=== PATIENT | male | born 1955 | race Caucasian/White ===

== ENCOUNTER → 2019-05-07 13:46 | Outpatient (POV) | payer OTHER, SELFPAY | PROVIDERS: Visit Provider Dermatology | DX: Z00.00 Encounter for general adult medical examination without abnormal findings (principal) ==

== ENCOUNTER → 2019-10-01 10:00 | Outpatient (POV) | payer OTHER, SELFPAY | PROVIDERS: PCP Dermatology; Visit Provider Dermatology | DX: Z00.00 Encounter for general adult medical examination without abnormal findings (principal) ==

== ENCOUNTER → 2019-10-29 09:55 | Outpatient (POV) | payer OTHER, SELFPAY | PROVIDERS: Visit Provider Dermatology | DX: Z00.00 Encounter for general adult medical examination without abnormal findings (principal) ==

== ENCOUNTER → 2020-03-28 08:49 | Outpatient (CLI) | payer MEDICARE, SELFPAY ==
[2020-03-28 10:04] LABS: Chloride 105 mmol/L (98-107); Potassium 5.4 mmoL/L (3.5-5.1); Sodium 138 mmol/L (136-145)
[2020-03-28 10:07] LABS: Alanine Aminotransferase 29 U/L (12-78); Albumin Level 4.4 g/dl (3.5-5.0); Albumin/Globulin Ratio 1.6 (1.1-1.8); Alkaline Phosphatase 58 U/L (38-126); Anion Gap 9.4 mEq/L (5-15); Aspartate Amino Transferase 32 U/L (17-59); Bilirubin,Total 1.1 mg/dl (0.2-1.3); Blood Urea Nitrogen 18 mg/dl (9-20); Carbon Dioxide 29 mmol/L (22.0-30.0); Cholesterol 267 mg/dl (140-200); Estimated Glomerular Filt Rate 97 ml/min (>60); GFR (African American) 117 ML/MIN (>60); Globulin 2.7 g/dL (1.3-3.2); Total Protein,Serum 7.1 g/dl (6.3-8.2); Triglycerides 92 mg/dl (30-150); VLDL Cholesterol 18 mg/dL (0-40)
[2020-03-28 10:08] LABS: Calcium 9.6 mg/dl (8.4-10.2); Chol/HDL Ratio 4.7 (1-3.5); Glucose 156 mg/dl (74-100); HDL Cholesterol 57 mg/dl (40-60)
[2020-03-28 10:19] LABS: Direct LDL Cholesterol 211.44 mg/dL (100-129)
== END ==
PROVIDERS: PCP Internal Medicine; Visit Provider Internal Medicine
DX: E78.2 Mixed hyperlipidemia (principal)
CPT/HCPCS: 36415; 80053; 80061

== ENCOUNTER → 2020-04-03 06:36 | Outpatient (CLI) | payer MEDICARE, SELFPAY ==
--- NOTE | 2020-04-03 | CA_ITS ---
APPROVED REPORT Exam: Exercise Treadmill Technologist: Natalie Street, Ht: 6 ft 1 in Wt: 185 lbs BSA: 2.08 m2 Indications: Dizziness/pALP Medical History Medical History: HTN, Hyperlipidemia, Diabetes Medications: Vitamin D3,,,,, Ramipril,,,,, Naproxen,,,,, Acetaminophen,,,,, DulaGLUTIDE,,,,, TrULicity,,,,, Cardiac Risk Factors: HTN, Hyperlipidemia, Diabetes (non-insulin), FHX of CAD Stress Test Details Test: Hari HR Resting HR: 67 bpm Max Heart Rate (APMHR): 155 bpm Max HR Achieved: 135 bpm Target HR (85% APMHR): 131 bpm % of APMHR: 87 BP Resting BP: 136/82 mmHg Max BP: 166/89 mmHg ECG Clinical Exercise duration: 08:30 min Highest Stage Achieved: Exercise capacity: 10.1 METs Stress ECG Conclusion no CP, positive SOA at peak exercise resolving in recovery occ PVC greater than 1.5mm ST depression The EKG portion of the exercise treadmill stress test is nondiagnostic due to baseline abnormal EKG. Test Summary RECOVERY 05:24 0.0 0.0 77 . 127/ 83 . . REST . . . . . . . Sitting REST 03:34 0.0 0.0 67 . 136/ 82 . . Stage 1 01:00 10.0 1.7 83 . . . . Stage 1 02:00 10.0 1.7 87 . . . . Stage 1 03:00 10.0 1.7 86 . 115/ 80 . . Stage 2 01:00 12.0 2.5 101 . . . . Stage 2 02:00 12.0 2.5 103 . . . . Stage 2 03:00 12.0 2.5 109 . 122/ 93 . . Stage 3 01:00 14.0 3.4 121 . . . . Stage 3 . . . . . . . Cardiolite injected Stage 3 02:00 14.0 3.4 131 . . . . Stage 3 02:30 14.0 3.4 132 . . . Stop exercise at 08:30 RECOVERY 01:00 0.0 0.0 100 . . . . RECOVERY 02:00 0.0 0.0 81 . . . . RECOVERY 03:00 0.0 0.0 80 . 166/ 89 . . RECOVERY 04:00 0.0 0.0 79 . 146/ 82 . . RECOVERY 05:00 0.0 0.0 78 . 146/ 82 . . RECOVERY 05:24 0.0 0.0 77 . 127/ 83 . . Electronically signed by : Tanner Gupta, 04/03/2020 13:30:09
--- NOTE | 2020-04-03 06:38 | CA_ITS ---
APPROVED REPORT EXAM: Comprehensive 2D, Doppler, and color-flow Echocardiogram Park Ranger: Magda Gonzalez RVT Ht: 6 ft 0 in Wt: 190lbs BSA: 2.08 BP: 157/93 mmHg Indications: PALPS,HTN,HLD,DM,DIZZINESS,ABN EKG 2D Dimensions LVOT 1.71 cm (M/F) 1.5-2.5 M-Mode Dimensions RVDd 3.61 cm (0.9-2.6) LVDd 4.48 cm (3.5-5.7) LVDs 3.19 cm (3.5-5.7) IVSd 1.29 cm (0.6-1.1) PWd 1.18 cm (0.6-1.1) EF (Teich) 55.60% FS 28.80% EDV (Teich) 91.50 mL ESV (Teich) 40.60 mL LV Diastology E/A Ratio 0.61 Mitral Valve MV A Velocity 59.00 (40-130 cm/s) Left Ventricle Left atrium is mildly enlarged, left ventricle is normal size, mild concentric left ventricular hypertrophy, visually estimated ejection fraction 55% with no regional wall motion abnormality. Grade 1 diastolic dysfunction seen without tissue Doppler evidence of raise left atrial pressure. Right Ventricle Right atrium and right ventricle mildly enlarged with normal contractility. Aortic Valve Aortic valve is minimally thickened and fibrosed, there is no aortic stenosis or aortic insufficiency. Mitral Valve Mitral valve is grossly normal, there is mild mitral regurgitation. Tricuspid Valve Tricuspid valve is grossly normal, there is no tricuspid stenosis. There is mild tricuspid regurgitation, tricuspid regurgitation jet velocity is inadequate for calculation of the right ventricular systolic pressure. Pulmonic Valve Pulmonic valve is poorly visualized. Great Vessels Aortic root is normal size. Pericardium No significant pericardial effusion noted. Conclusion 1. Biatrial enlargement, normal left ventricular size, mild concentric left ventricular hypertrophy, visually estimated ejection fraction 55% with no regional wall motion abnormality, grade 1 diastolic dysfunction seen without tissue Doppler evidence of raise left atrial pressure. 2. Mildly enlarged right ventricle with normal contractility. 3. Mild mitral and tricuspid regurgitation. 4. No significant pericardial effusion noted. Electronically signed by : Tanner Gupta, 04/03/2020 11:15:14
--- NOTE | 2020-04-03 06:48 | NM_ITS ---
APPROVED REPORT Exam: Nuclear Stress Test Indication: htn, d.m., hyperlipidemia, fm hx., fatigue Patient Location: Outpatient Stress Tech: Natalie Street [place] Tech:Jesika Mercer ARRBrendon RT(R)(N) Ht: 6 ft 1 in Wt: 185 lbs HR: 63 bpm BP: 136/82 mmHg BSA: 2.08 m2 BMI: 24.4 History: htn, d.m., hyperlipidemia, fm hx., fatigue Procedure: Patient exercised on Hrai protocol 8:30 minutes and sec, resting heart rate 63 bpm, resting blood pressure 136/82 mmHg, with exercise maximum heart rate achived was 135 bpm which is Greater than 85 % of the maximum predicted heart rate and blood pressure was 122/93 mmHg. Patient has Good exercise capacity, achieved 10.1 METs of workload on treadmill, the blood pressure response to exercise was Abnormal. Electrocardiogram Resting electrocardiogram shows sinus rhythm nonspecific ST-T changes, with exercise there is additional millimeter ST segment depression noted from the baseline EKG. The EKG portion of the exercise Myoview is nondiagnostic due to baseline abnormal EKG. Cardiac Stress and Resting SPECT Images: Cardiac Stress and Resting SPECT images were obtained using technetium 99m Myoview 30.7 mCi stress and 10.24 mCi at rest. Gated SPECT for analysis of segmental wall motion and calculation of the ejection fraction also done. Cardiac stress and resting SPECT images show decrease tracer activity in the inferior and posterior basal wall which partially improves on the resting images suggestive of mixed ischemia and scar, computer derived ejection fraction is 56% with moderate inferior wall hypokinesis, right ventricle is mildly enlarged with normal contractility. Conclusion: 1. The EKG portion of the exercise Myoview is nondiagnostic due to baseline abnormal EKG, patient has good exercise capacity achieved 10.1 mets of workload on treadmill, the blood pressure response to exercise was abnormal, test was stopped due to shortness of breath. 2. Scintigraphic evidence of mixed ischemia and scar involving the inferior wall, computer derived ejection fraction 56% with moderate inferior wall hypokinesis, right ventricle is mildly enlarged with normal contractility. 3. Abnormal exercise Myoview study. Electronically signed by : Tanner Gupta, 04/03/2020 13:33:56
== END ==
PROVIDERS: PCP Internal Medicine; Visit Provider Urology
DX: R94.31 Abnormal electrocardiogram [ECG] [EKG] (principal); I10 Essential (primary) hypertension; R42 Dizziness and giddiness
CPT/HCPCS: 78452; 93017; 93306; A9502

== ENCOUNTER 2020-04-20 08:24 | Day surgery (SDC) | payer MEDICARE, SELFPAY ==
[2020-04-20] VITALS (12 sets, daily range): BP systolic 95–145; BP diastolic 56–92; PULSE 53–76; RESP 16–18; TEMP 36.7; O2SAT 93–100; BMI 25.4
--- NOTE | 2020-04-20 09:00 | IR_ITS ---
APPROVED REPORT Patient Location: Outpatient PROCEDURES Left heart catheterization Left ventriculogram Selective coronary angiogram INDICATION High risk abnormal Myoview, Angina pectoris Informed consent was obtained prior to the procedure. COMPLICATIONS NONE Estimated Blood Loss: LESS THAN 10 ML TECHNIQUE One percent lidocaine used to anesthetize the right anterior aspect of the wrist. The right radial artery was accessed via the Seldinger technique. A 6 Egyptian sheath was placed in the right radial artery. 2.5 mg of verapamil, 800 mcg of nitroglycerin, 1mg Lidocaine and 5000 U Heparin were given through the arterial sheath. The trap catheter was also used to perform left heart catheterization, left ventriculogram and selective coronary angiogram. At the end of the procedure the sheath was removed good hemostasis was achieved using Traclet band, patient was transferred to the postop holding area in stable condition. ANGIOGRAPHIC RESULTS The left main artery Has a distal greater than 60% stenosis The left anterior descending artery Has proximal 4060 and 50% stenoses. The remaining LAD is normal however the large first diagonal artery has an ostial greater than 50% stenosis The circumflex artery Is nondominant yet still a large vessel giving rise to a large high first obtuse marginal artery. The vessel has mild 10 to 20% proximal luminal irregularities The right coronary artery Is a dominant vessel and has mid vessel 30 and 40% stenoses. A large posterior descending artery has a 60 to 70% stenosis The TATE ventriculogram reveals Preserved at 60% The left ventricular end-diastolic pressure 10 mmHg IMPRESSION Severe three-vessel coronary artery disease as described above Preserved ejection fraction Normal left ventricular end-diastolic pressure PLAN 1. Patient will be referred for bypass surgery 2. Ongoing risk factor modification Electronically signed by : Kike Oshea, 04/20/2020 10:47:09
[2020-04-20 09:01] LABS: Basophils # 0.1 K/mm3 (0-0.2); Basophils % 1.1 % (0.1-2.0); Eosinophils # 0.2 K/mm3 (0.0-0.4); Eosinophils % 3.2 % (0.1-12.0); Hematocrit 48.3 % (42.0-52.0); Lymphocytes # 1.8 K/mm3 (0.7-4.5); Lymphocytes % 30.1 % (10-50); Mean Corpuscular HGB Conc 35.1 g/dL (31.8-35.4); Mean Corpuscular Hemoglobin 31.7 pg (27.0-31.2); Mean Corpuscular Volume 90.1 fl (80-94); Mean Platelet Volume 7.9 fl (7.4-10.4); Monocytes # 0.3 K/mm3 (0.1-1.0); Monocytes % 4.9 % (1.7-9.3); Neutrophils # 3.6 K/mm3 (1.8-7.8); Neutrophils % 60.6 % (37.0-80.0); Platelet Count 141 K/mm3 (142-424); Red Blood Count 5.35 M/mm3 (4.60-6.20); Red Cell Distribution Width 13.6 % (11.5-17.5); White Blood Count 5.9 K/mm3 (4.8-10.8)
[2020-04-20 09:05] LABS: Chloride 106 mmol/L (98-107); Potassium 4.2 mmoL/L (3.5-5.1); Sodium 139 mmol/L (136-145)
[2020-04-20 09:07] LABS: Blood Urea Nitrogen 20 mg/dl (9-20); Creatinine Clearance Estimated 89 mL/min (50-200); Estimated Glomerular Filt Rate 75 ml/min (>60); GFR (African American) 91 ML/MIN (>60)
[2020-04-20 09:08] LABS: Anion Gap 6.2 mEq/L (5-15); Calcium 9.1 mg/dl (8.4-10.2); Carbon Dioxide 31 mmol/L (22.0-30.0); Glucose 158 mg/dl (74-100)
== END 2020-04-20 13:50 | disposition home or self-care (01) ==
LOC: CATHLAB 08:26
PROVIDERS: PCP Internal Medicine; Visit Provider Internal Medicine
DX: E78.5 Hyperlipidemia, unspecified; I10 Essential (primary) hypertension; R94.31 Abnormal electrocardiogram [ECG] [EKG]; R94.39 Abnormal result of other cardiovascular function study; I25.118 Atherosclerotic heart disease of native coronary artery with other forms of angina pectoris; E11.9 Type 2 diabetes mellitus without complications; Z79.4 Long term (current) use of insulin; Z79.899 Other long term (current) drug therapy; Z88.8 Allergy status to other drugs, medicaments and biological substances
CPT/HCPCS: 80048; 85025; 93458; 99152; C1725; C1769; J1644; Q9967

== ENCOUNTER → 2020-07-07 15:45 | Outpatient (POV) | payer MEDICARE, SELFPAY | PROVIDERS: Visit Provider Dermatology | DX: Z00.00 Encounter for general adult medical examination without abnormal findings (principal) ==

== ENCOUNTER → 2020-07-28 06:09 | Outpatient (CLI) | payer MEDICARE, SELFPAY ==
--- NOTE | 2020-07-28 06:09 | CA_ITS ---
APPROVED REPORT Exam: Exercise Treadmill Technologist: Romana June, Ht: 6 ft 1 in Wt: 190 lbs BSA: 2.11 m2 HR: 56 bpm BP: 156/91 mmHg Indications: Angina, CAD, Dizziness Medical History Medications: Aspirin,,,,, Metoprolol,,,,, Acetaminophen,,,,, DulaGLUTIDE,,,,, Evolocumab,,,,, Stress Test Details Test: Manual Treadmill HR Resting HR: 64 bpm Max Heart Rate (APMHR): 155 bpm Max HR Achieved: 154 bpm Target HR (85% APMHR): 131 bpm % of APMHR: 99 Recovery HR: 82 bpm BP Resting BP: 156/91 mmHg Max BP: 210/100 mmHg Recovery BP: 151.0/100.0 mmHg ECG Clinical Exercise duration: 08:00 min Highest Stage Achieved: Exercise capacity: 10.1 METs Stress ECG Conclusion Resting EKG: Sinus robin, RAD Exercised 8:00 in Hari Protocol Symptoms: Some increase in pretest CP with exercise Arrhythmias/Ectopy: Occ PAC and PVC ST-T Changes: 1-1.[address] elevation in lead aVL, Exaggeration of baseline ST depression with a total of 3mm of down slopping ST depression inferiorly and 1.5mm horizontal ST depression inferiorly Conclusion: The EKG portion of the exercise Myoview is nondiagnostic due to baseline abnormal EKG. Test Summary Stage 3 01:00 14.0 3.4 145 . . . Myoview Injected REST . . . . . . . Standing REST 06:44 0.0 0.0 64 . 156/ 91 . . Stage 1 01:00 10.0 1.7 85 . . . . Stage 1 02:00 10.0 1.7 95 . . . . Stage 1 03:00 10.0 1.7 96 . 166/ 92 . . Stage 2 01:00 12.0 2.5 106 . . . . Stage 2 02:00 12.0 2.5 118 . . . . Stage 2 03:00 12.0 2.5 130 . 198/ 98 . . Stage 3 . . . . . . . Myoview Injected Stage 3 01:00 14.0 3.4 145 . . . . Stage 3 02:00 14.0 3.4 153 . . . Stop exercise at 08:00 RECOVERY . . . . . . . Protocol changed to Manual Treadmill RECOVERY 01:00 0.0 0.0 128 . 210/100 . . RECOVERY 02:00 0.0 0.0 85 . 210/100 . . RECOVERY 03:00 0.0 0.0 77 . 177/ 93 . . RECOVERY 04:00 0.0 0.0 76 . 177/ 93 . . RECOVERY 05:00 0.0 0.0 79 . 146/ 90 . . RECOVERY 06:00 0.0 0.0 83 . 146/ 90 . . RECOVERY 07:00 0.0 0.0 85 . 146/ 90 . . RECOVERY 07:43 0.0 0.0 84 . 151/100 . . Electronically signed by : Tanner Gupta, 07/28/2020 18:50:21
--- NOTE | 2020-07-28 06:09 | NM_ITS ---
APPROVED REPORT Exam: Nuclear Stress Test Indication: Chest pain, SOB, Fatigue, CAD, CABG, HTN, DM, High cholesterol, Family history Patient Location: Outpatient Stress Tech: Romana June [place] Tech:Cyndi Stoner, ARRT, RT (R)(N) Ht: 6 ft 1 in Wt: 190 lbs HR: 56 bpm BP: 156/91 mmHg BSA: 2.11 m2 BMI: 25.0 History: Chest pain, SOB, Fatigue, CAD, CABG, HTN, DM, High cholesterol, Family history Procedure: Patient exercised on Hari protocol 8:00 minutes and sec, resting heart rate 56 bpm, resting blood pressure 156/91 mmHg, with exercise maximum heart rate achived was 134 bpm which is Greater than 85 % of the maximum predicted heart rate and blood pressure was 210/100 mmHg. Test was stopped due to Fatigue. Patient has Good exercise capacity, achieved 10.1 METs of workload on treadmill, the blood pressure response to exercise was Hypertension. Electrocardiogram Resting electrocardiogram showed sinus rhythm, nonspecific ST-T changes, with exercise there is additional 1.[address] segment depression noted from the baseline EKG. The EKG portion of the exercise Myoview is nondiagnostic due to baseline abnormal EKG. Cardiac Stress and Resting SPECT Images: Cardiac Stress and Resting SPECT images were obtained using technetium 99m Myoview 32.0 mCi stress and 10.49 mCi at rest. Gated SPECT for analysis of segmental wall motion and calculation of the ejection fraction also done. Cardiac stress and resting SPECT images show uniform myocardial activity without segmental perfusion abnormality, computer derived ejection fraction is 54 % with no regional wall motion abnormality, right ventricle is normal size and contractility. Conclusion: 1. The EKG portion of the exercise Myoview is nondiagnostic due to baseline abnormal EKG, patient has good exercise capacity achieved 10.1 mets of workload on treadmill, the blood pressure response to exercise was hypertensive, there was no exercise-induced chest discomfort. 2. No scintigraphic evidence of reversible ischemia seen at this level of exercise, computer derived ejection fraction is 54 % with no regional wall motion abnormality, right ventricle is normal size and contractility. Electronically signed by : Tanner Gupta, 07/28/2020 19:06:02
--- NOTE | 2020-07-28 08:11 | HMH.ITSHM ---
Current Home Medications as stated by this patient Mariano Sellers or customer engagement representative. []METOPROLOL ROPATHA TRILICITY ASA TYLENOL ALEVE
[2020-07-28 10:54] LABS: Alanine Aminotransferase 27 U/L (12-78); Albumin Level 4.4 g/dl (3.5-5.0); Alkaline Phosphatase 78 U/L (38-126); Aspartate Amino Transferase 32 U/L (17-59); Bilirubin,Direct 0.2 mg/dl (0.0-0.4); Bilirubin,Indirect 0.7 mg/dL (0.0-0.9); Bilirubin,Total 0.9 mg/dl (0.2-1.3); Bilirubin,Unconjugated 0.7 mg/dL (0.0-1.1); Chol/HDL Ratio 3.6 (1-3.5); Cholesterol 220 mg/dl (140-200); HDL Cholesterol 61 mg/dl (40-60); Total Protein,Serum 7.5 g/dl (6.3-8.2); Triglycerides 103 mg/dl (30-150); VLDL Cholesterol 21 mg/dL (0-40)
[2020-07-28 11:04] LABS: Direct LDL Cholesterol 137.38 mg/dL (100-129)
== END ==
PROVIDERS: PCP Internal Medicine; Visit Provider Internal Medicine
DX: I10 Essential (primary) hypertension (principal); I20.8 Other forms of angina pectoris; Z95.1 Presence of aortocoronary bypass graft
CPT/HCPCS: 36415; 78452; 80061; 80076; 93017; A9502

== ENCOUNTER → 2020-08-25 09:01 | Outpatient (POV) | payer MEDICARE, SELFPAY | PROVIDERS: Visit Provider Dermatology | DX: Z00.00 Encounter for general adult medical examination without abnormal findings (principal) ==

== ENCOUNTER → 2020-10-26 13:06 | Outpatient (CLI) | payer MEDICARE, SELFPAY ==
[2020-10-26 13:30] LABS: Basophils % 0.5 % (0.1-2.0); Eosinophils # 0.2 K/mm3 (0.0-0.4); Hematocrit 52.5 % (42.0-52.0); Hemoglobin 17.7 g/dL (14.1-18.0); Lymphocytes # 1.7 K/mm3 (0.7-4.5); Lymphocytes % 22.8 % (10-50); Mean Corpuscular HGB Conc 33.7 g/dL (31.8-35.4); Mean Corpuscular Hemoglobin 31.2 pg (27.0-31.2); Mean Corpuscular Volume 92.7 fl (80-94); Mean Platelet Volume 8.2 fl (7.4-10.4); Monocytes # 0.4 K/mm3 (0.1-1.0); Monocytes % 5.7 % (1.7-9.3); Platelet Count 165 K/mm3 (142-424); Red Blood Count 5.67 M/mm3 (4.60-6.20); Red Cell Distribution Width 14.4 % (11.5-17.5); White Blood Count 7.3 K/mm3 (4.8-10.8)
[2020-10-26 14:23] LABS: Chloride 102 mmol/L (98-107); Sodium 139 mmol/L (136-145)
[2020-10-26 14:26] LABS: Blood Urea Nitrogen 17 mg/dl (9-20); Estimated Glomerular Filt Rate 84 ml/min (>60); GFR (African American) 102 ML/MIN (>60)
[2020-10-26 14:27] LABS: Calcium 10.2 mg/dl (8.4-10.2); Carbon Dioxide 29 mmol/L (22.0-30.0); Glucose 135 mg/dl (74-100)
[2020-10-26 16:17] LABS: Coronavirus 19 IgG Antibody Positive (Negative)
[2020-10-26 16:18] LABS: Coronavirus 19 IgM Antibody Positive (Negative)
[2020-10-26 22:02] LABS: Adenovirus,PCR Not Detected (NotDetected); Bordetella Pertussis Not Detected (NotDetected); Chlamydophila Pneumoniae, PCR Not Detected (NotDetected); Coronavirus 19, PCR Not Detected (NotDetected); Coronavirus 229E Not Detected (NotDetected); Coronavirus NL63 Not Detected (NotDetected); Coronavirus OC43 Not Detected (NotDetected); Coronovirus HKU1,PCR Not Detected (NotDetected); Human Metapneumovirus Not Detected (NotDetected); Influenza A, PCR Not Detected (NotDetected); Influenza AH1, 2009 Not Detected (NotDetected); Influenza AH1, PCR Not Detected (NotDetected); Influenza AH3,PCR Not Detected (NotDetected); Influenza B, PCR Not Detected (NotDetected); Mycoplasma Pneumoniae, PCR Not Detected (NotDetected); Parainfluenza 1, PCR Not Detected (NotDetected); Parainfluenza 2, PCR Not Detected (NotDetected); Parainfluenza 3, PCR Not Detected (NotDetected); Parainfluenza 4, PCR Not Detected (NotDetected); Respiratory Syncytial Virus Not Detected (NotDetected); Rhinovirus/Enterovirus Not Detected (NotDetected)
== END ==
LOC: LAB 13:07 → COVID.OUT 17:39
PROVIDERS: Nurse Practitioner Family; PCP Internal Medicine; Visit Provider Internal Medicine
DX: Z01.818 Encounter for other preprocedural examination (principal); Z86.19 Personal history of other infectious and parasitic diseases; I25.10 Atherosclerotic heart disease of native coronary artery without angina pectoris
CPT/HCPCS: 36415; 80048; 85025; 86328; 87581; 87633; 87798; U0003

== ENCOUNTER 2020-10-27 07:51 | Day surgery (SDC) | payer MEDICARE, SELFPAY ==
[2020-10-27] VITALS (10 sets, daily range): BP systolic 130–166; BP diastolic 80–95; PULSE 58–70; RESP 12–20; TEMP 36.6–36.7; O2SAT 95–98; BMI 26.6
--- NOTE | 2020-10-27 07:04 | IR_ITS ---
APPROVED REPORT Patient Location: Outpatient PROCEDURES Left heart catheterization Left ventriculogram Selective coronary angiogram Selective engagement of left internal mammary artery with angiography Selective engage in the saphenous vein graft to the circumflex artery FFR to the LAD Drug-eluting stent deployment to the mid and proximal LAD Drug-eluting stent deployment to the proximal mid distal left main artery INDICATION Coronary disease, History of coronary bypass surgery, Angina pectoris class III and IV Informed consent was obtained prior to the procedure. COMPLICATIONS NONE Estimated Blood Loss: LESS THAN 10 ML TECHNIQUE One percent lidocaine used to anesthetize the right groin. The right femoral artery was accessed via the Seldinger technique and a 5 Brazilian sheath was placed in the right femoral artery. A JL 4, JR4 catheter were used to perform left heart catheterization, left ventriculogram selective coronary angiography as well as selective engagement of the solitary vein graft and the left internal mammary artery. At the end of the procedure therapeutic heparin was administered giving a therapeutic ACT and the 5 Brazilian sheath was exchanged for a 6 Brazilian sheath. A JL4 guide catheter was placed in the left main artery and the Choice PT extra-support wire was placed distally in the LAD. A Navvus FFR catheter was then normalized in the ascending aorta and then placed distally in the LAD. Adenosine was infused and the FFR index dropped to 0.73. Following this a 3.25 x 38 mm Xience stent was deployed at 20 monica reducing the stenosis to 0%. An additional 4 mm x 28 mm Xience drug-eluting stent was then placed in the proximal LAD overlapping the first stent and extending back into the left main artery and deployed at 16 monica. DIAMANTE-3 flow was present before and after the procedure. After achieving excellent angiographic results the apparatus was removed the groin was reprepped gloves were changed sheath was removed good hemostasis was achieved using Perclose device patient was transferred to the postop holding in stable condition ANGIOGRAPHIC RESULTS The left main artery Has a distal 40% stenosis The left anterior descending artery Has a proximal 60% stenosis followed by mid vessel 50% stenosis followed by an additional mid vessel 30 to 40% stenosis The circumflex artery Is nondominant and has competitive flow within the first obtuse marginal artery from the vein graft The right coronary artery Is a dominant vessel and has ostial proximal 20% stenosis mid vessel 20 to 30% stenoses. The PDA has a proximal concentric 40% followed by a 50% stenosis immediately distal to a 2 mm branch. 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 Brilinta and aspirin 2. Cardiac rehabilitation 3. Avoidance of tobacco products 4. Risk factor modification 5. At this time I recommend treating the right coronary artery medically. Although the PDA could be stented there would be possible je
--- NOTE | 2020-10-27 08:13 | CA_ITS ---
APPROVED REPORT EXAM: Comprehensive 2D, Doppler, and color-flow Echocardiogram Coremaker Experimental: Latoya Purcell CRT Ht: 6 ft 1 in Wt: 195lbs BSA: 2.13 BP: 150/90 mmHg Indications: Chest Pain, Shortness of Breath, Diabetes, Palpitations, CABG x 2 2020 2D Dimensions LVOT 2.00 cm (M/F) 1.5-2.5 M-Mode Dimensions RVDd 4.08 cm (0.9-2.6) LA Diam 4.41 cm (1.9-4.0) LVDd 5.35 cm (3.5-5.7) Ao Diam 3.73 cm (2.0-3.7) LVDs 4.03 cm (3.5-5.7) IVSd 0.96 cm (0.6-1.1) PWd 0.59 cm (0.6-1.1) EF (Teich) 48.40% FS 24.70% EDV (Teich) 138.30 mL ESV (Teich) 71.30 mL LV Diastology E Decel Time 300.00 (160-240 msec) E/A Ratio 0.68 MED E' 5.00 (< 7 cm/sec) E'/MED E' Ratio 9.68 (>14) LAT E' 8.50 (<10 cm/sec) E/LAT E' Ratio 5.69 (>14) Aortic Valve AI PHT 547.00 ms AO Peak GR. 5.50 mmHg Mitral Valve MV A Velocity 71.00 (40-130 cm/s) E/A Ratio 0.68 MV Decel. Time 300.00 (160-240 ms) Pulmonary Valve PV Peak Velocity 71.00 (50-150 cm/s) Tricuspid Valve TR P. Velocity 219.00 cm/s RAP Estimate 10.00 mmHg RVSP 29.10 mmHg Left Ventricle Left atrium is mildly enlarged, left ventricle is normal size, mild concentric left ventricular hypertrophy, visually estimated ejection fraction 50%, with inferior basal wall moderate hypokinesis. Grade 1 diastolic dysfunction seen without tissue Doppler evidence of raise left atrial pressure. Right Ventricle Right atrium right ventricle mildly enlarged with normal contractility. Aortic Valve Aortic valve is minimally thickened and fibrosed, there is no aortic stenosis, there is trace aortic insufficiency. Mitral Valve Mitral valve is grossly normal, there is mild mitral regurgitation. Tricuspid Valve Tricuspid valve is grossly normal, there is mild tricuspid regurgitation, tricuspid regurgitation jet velocity is inadequate for calculation of the right ventricular systolic pressure. Pulmonic Valve Pulmonic valve is poorly visualized. Great Vessels Aortic root is normal size. Pericardium No significant pericardial effusion noted. Conclusion 1. Mildly enlarged left atrium, normal left ventricular size, mild concentric left ventricular hypertrophy, visually estimated ejection fraction 50% with segmental wall motion abnormality described above, grade 1 diastolic dysfunction seen without tissue Doppler evidence of raise left atrial pressure. 2. Mildly enlarged right ventricle with normal contractility. 3. Mild mitral and tricuspid regurgitation. 4. No significant pericardial effusion noted. Electronically signed by : Tanner Gupta, 10/28/2020 06:10:20
--- NOTE | 2020-10-27 13:11 | SUR.PREOP ---
See other proocedure, 2 procedures done same day.
[2020-10-27 14:08] LABS: CATHL Activated Clotting Time > 400 SEC (74-125)
--- NOTE | 2020-10-27 15:22 | HMH.LOOP ---
[facility] Loop Recorder Date: 10/27/20 Time: 15:22 Procedure Performed:: Implantation of loop recorder Indication:: Palpitations Technique:: Patient was brought to the cardiac Collating Machine Operator. After informed consent obtained, 1% lidocaine with epinephrine was used to anesthetize the site along the left anterior aspect of the chest near the sternal border. Using the preformed scalpel, an incision was made and using the supplied preloaded apparatus, the loop recorder was placed subcutaneously without difficulty. Following the deployment of the loop recorder interrogation of the device was performed to ensure appropriate voltage was being detected (0.39 mV). Once this was verified, Steri-Strips were placed over the incision and the patient was prepped to discharge home. Patient tolerated the procedure well with minimal discomfort. Impression:: Successful implantation of loop recorder Serial Number:: [id number] Plan:: Routine postop care
--- NOTE | 2020-10-27 15:31 | HMH.PHACLD ---
[place] Marlo has received discharge medication counseling on the following medications: NEW MEDICATIONS: BRILINTA, LOSARTAN CONTINUE MEDICATIONS: METOPROLOL, ASPIRIN PATIENT CAN'T TAKE STATINS DUE TO ALLERGY/ADVERSE REACTIONS. DISCUSSED MEDICATIONS WITH PATIENT AND HIS .
--- NOTE | 2020-10-27 15:54 | SUR.PHASEII ---
see other cathlab case for discharge information.
== END 2020-10-27 15:55 | disposition home or self-care (01) ==
LOC: CATHLAB 07:54
PROVIDERS: PCP Internal Medicine; Visit Provider Internal Medicine
DX: R00.0 Tachycardia, unspecified; R00.2 Palpitations; I25.118 Atherosclerotic heart disease of native coronary artery with other forms of angina pectoris
CPT/HCPCS: 85347; 93306; 99152; 99153; C1725; C1760; C1769; C1876; C1894; J0153; J1644; Q9967

== ENCOUNTER 2020-10-27 19:06 | Inpatient (IN) | payer MEDICARE, SELFPAY ==
[2020-10-27] VITALS (11 sets, daily range): BP systolic 119–192; BP diastolic 78–121; PULSE 69–102; RESP 17–24; TEMP 36.5–37.1; O2SAT 94–98; BMI 25.7; BMI 25.9
--- NOTE | 2020-10-27 19:00 | ECG_ITS ---
APPROVED REPORT Exam: Resting ECG HR:88 bpm ECG Measurements Heart Rate 88 AXES VA 136 P 41 QRSd 76 QRS 10 QT 320 T -32 QTc 387 Conclusion Normal sinus rhythm Poor r wave progression - previously noted. Old inferior changes Abnormal ECG Electronically signed by : Gildardo Grajeda, 10/28/2020 05:28:34
--- NOTE | 2020-10-27 19:09 | HMH.EDGENADL ---
ED Disposition Clinical Impression: Chest pain Qualifiers: Chest pain type: unspecified Qualified Code(s): R07.9 - Chest pain, unspecified Disposition: Admitted as Observation Condition on Discharge: Fair - Critical Care Critical Care Time: No Attestation: On , the high probability of a clinically significant, sudden or life threatening deterioration of the following system(s) required my full and direct attention, intervention and personal management. The time I documented below is in addition to time spent performing reported procedures but includes the following listed in this critical care notation. Medical Decision Making - Medical Records Medical records reviewed: Yes: I reviewed the patient's medical records. - Eugenio Inquiry Pt receiving controlled substance: Yes Eugenio was queried for this patient: No Reason not queried -: Emergent pt cond-no time Risks and benefits of using a controlled substance: were not discussed with pt by me Vital Signs: 10/27/20 19:06 10/27/20 19:11 10/27/20 19:30 Temperature 98.8 F Temperature Source Oral Pulse Rate [Right] 87 81 83 Respiratory Rate 22 24 24 Blood Pressure [Right Arm] 192/121 H 166/106 H 166/103 H Blood Pressure Mean [Right Arm] 144 126 124 Blood Pressure Source [Right Arm] Automatic Cuff Blood Pressure Position [Right Arm] Supine Sitting Sitting 02 Sat by Pulse Oximetry 97 98 97 Oxygen Delivery Method Room Air Room Air 10/27/20 19:36 10/27/20 19:54 Temperature Temperature Source Pulse Rate [Right] 102 H 74 Respiratory Rate 20 18 Blood Pressure [Right Arm] 155/105 H 127/88 Blood Pressure Mean [Right Arm] 121 101 Blood Pressure Source [Right Arm] Automatic Cuff Automatic Cuff Blood Pressure Position [Right Arm] Sitting Sitting 02 Sat by Pulse Oximetry 97 94 L Oxygen Delivery Method Room Air - Lab Data Lab results reviewed: Yes: I reviewed the patient's lab results. Lab Results 10/27/20 19:15: WBC 10.1 D, RBC 5.48, Hgb 17.4, Hct 51.1, MCV 93.3, MCH 31.8 H, MCHC 34.1, RDW 14.6, Plt Count 155, MPV 8.0, Neut % (Auto) 66.3, Lymph % (Auto) 24.5, [place] % (Auto) 6.8, Eos % (Auto) 1.6, Baso % (Auto) 0.8, Neut # (Auto) 6.7, Lymph # (Auto) 2.5, [place] # (Auto) 0.7, Eos # (Auto) 0.2, Baso # (Auto) 0.1 10/27/20 19:15: Sodium 139, Potassium 4.0, Chloride 105, Carbon Dioxide 26, Anion Gap 12.0, BUN 15, Creatinine 1.00, Estimated Creat Clear 91, Estimated GFR 75, Est GFR ( Amer) 90, Glucose 171 H, Calcium 9.4, Troponin I < 0.01 Result diagrams: 10/27/20 19:15 10/27/20 19:15 Orders (Tests/Meds): ED MEDICATIONS Discontinued Medications Generic Name Dose Route Start Last Admin Trade Name Kevin PRN Reason Stop Dose Admin Aspirin 234 mg 10/27/20 19:13 10/27/20 19:25 Aspirin 81mg Chewable Tablet PO 10/27/20 19:14 234 mg ONCE ONE Administration Ketorolac Tromethamine 15 mg 10/27/20 19:27 10/27/20 19:30 Ketorolac 30mg/Ml Vial IV 10/27/20 19:28 15 mg ONCE ONE Administration Morphine Sulfate 4 mg 10/27/20 19:22 10/27/20 19:25 Morphine 4mg/Ml Syringe IV 10/27/20 19:23 4 mg ONCE ONE Administration Nitroglycerin 0.4 mg 10/27/20 19:26 10/27/20 19:27 Nitroglycerin 0.4mg Sl Tablet SL 10/27/20 19:27 0.4 mg ONCE ONE Administration Ondansetron HCl 4 mg 10/27/20 19:22 10/27/20 19:27 Ondansetron 4mg/2ml Vial IV 10/27/20 19:23 4 mg ONCE ONE Administration ORDERS Category Date Time Status XR chest portable Stat Exams 10/27/20 19:23 Taken Troponin I Q3H Lab 10/27/20 22:15 Ordered Troponin I Q3H Lab 10/28/20 01:15 Ordered - ECG Data Tracing #1 EKG interpreted by Maurice Acosta MD: Rhythm: sinus Rate: 88 [place]: normal Ectopy: none Conduction: normal ST Segment Changes: Inferior and anterior lateral depression, questionable trace ST elevation in aVL only. T Wave Changes: none Q Waves: none Compared to prior EKG in July the nonspecific ST changes are slightly more
--- NOTE | 2020-10-27 19:23 | XR_ITS ---
PROCEDURE: XR CHEST PORTABLE CLINICAL HISTORY: cp Chest pain COMPARISON: CR CXR CHEST(2 VIEWS-NOT PORTABLE) from 02/06/2013 FINDINGS: There are prior CABG. Normal heart size There are low lung volumes. There is increased density in the right lower lobe which may be related to low lung volumes and elevated right hemidiaphragm. The remaining lungs are clear. No acute bony abnormalities. IMPRESSION: Patchy density right lower lobe which may be related to the poor inspiration and elevated hemidiaphragm with soft tissue attenuation. Upright PA and lateral chest may provide further evaluation and to exclude right basilar infiltrate which is included in the differential diagnosis. Dictated by: Anatoly Moody MD 10/28/2020 05:22 Anatoly Moody MD in [place] 10/28/2020 05:22
[2020-10-27 19:29] LABS: Basophils # 0.1 K/mm3 (0-0.2); Basophils % 0.8 % (0.1-2.0); Eosinophils # 0.2 K/mm3 (0.0-0.4); Eosinophils % 1.6 % (0.1-12.0); Hematocrit 51.1 % (42.0-52.0); Hemoglobin 17.4 g/dL (14.1-18.0); Lymphocytes # 2.5 K/mm3 (0.7-4.5); Lymphocytes % 24.5 % (10-50); Mean Corpuscular HGB Conc 34.1 g/dL (31.8-35.4); Mean Corpuscular Hemoglobin 31.8 pg (27.0-31.2); Mean Corpuscular Volume 93.3 fl (80-94); Monocytes # 0.7 K/mm3 (0.1-1.0); Monocytes % 6.8 % (1.7-9.3); Neutrophils # 6.7 K/mm3 (1.8-7.8); Neutrophils % 66.3 % (37.0-80.0); Platelet Count 155 K/mm3 (142-424); Red Blood Count 5.48 M/mm3 (4.60-6.20); Red Cell Distribution Width 14.6 % (11.5-17.5); White Blood Count 10.1 K/mm3 (4.8-10.8)
--- NOTE | 2020-10-27 19:29 | PC.NURSE ---
speaking with dr hillman @ this time
[2020-10-27 19:31] LABS: Chloride 105 mmol/L (98-107); Sodium 139 mmol/L (136-145)
[2020-10-27 19:34] LABS: Blood Urea Nitrogen 15 mg/dl (9-20); Carbon Dioxide 26 mmol/L (22.0-30.0); Creatinine Clearance Estimated 91 mL/min (50-200); Estimated Glomerular Filt Rate 75 ml/min (>60); GFR (African American) 90 ML/MIN (>60)
[2020-10-27 19:35] LABS: Calcium 9.4 mg/dl (8.4-10.2); Glucose 171 mg/dl (74-100)
--- NOTE | 2020-10-27 19:45 | ECG_ITS ---
APPROVED REPORT Exam: Resting ECG HR:71 bpm ECG Measurements Heart Rate 71 AXES WA 146 P 40 QRSd 84 QRS 9 QT 336 T 104 QTc 365 Conclusion Normal sinus rhythm ST & T wave abnormality, consider anterolateral ischemia Abnormal ECG Electronically signed by : Gildardo Grajeda, 10/28/2020 05:27:08
--- NOTE | 2020-10-27 19:48 | PC.NURSE ---
speaking with Dr. Oshea
[2020-10-27 19:52] LABS: Troponin I < 0.01 ng/ml (0.00-0.034)
--- NOTE | 2020-10-27 21:38 | PC.NURSE ---
patient up to floor via wheelchair.
[2020-10-27 22:49] LABS: Troponin I 1.44 ng/ml (0.00-0.034)
[2020-10-28] VITALS (22 sets, daily range): BP systolic 99–142; BP diastolic 53–85; PULSE 59–80; RESP 14–19; TEMP 36.5–37; O2SAT 94–99; BMI 26.0; BMI 25.9
--- NOTE | 2020-10-28 | IR_ITS ---
APPROVED REPORT Patient Location: Inpatient Activity Assistant: KENY Ochoa RT (R) PROCEDURES Selective coronary angiogram Selective engagement of the saphenous vein graft to the circumflex artery INDICATION Recent drug-eluting stent deployment to the left main artery and LAD, Abnormally elevated troponin level Informed consent was obtained prior to the procedure. COMPLICATIONS NONE Estimated Blood Loss: LESS THAN 10 ML TECHNIQUE One percent lidocaine used to anesthetize the right anterior aspect of the wrist. The right radial artery was accessed via the Seldinger technique. A 6 [place] sheath was placed in the right radial artery. 2.5 mg of verapamil, 800 mcg of nitroglycerin, 1mg Lidocaine and 5000 U Heparin were given through the arterial sheath. The trap catheter and AR 2 catheter were used to perform selective coronary angiography as well as saphenous vein graft angiography. At the end of the procedure the sheath was removed good hemostasis was achieved using Traclet band, patient was transferred to the postop holding area in stable condition. ANGIOGRAPHIC RESULTS The left main artery Has a stent in the proximal mid distal segment which extends through the LAD into the mid segment The left anterior descending artery Has a stent originating off the left main artery. The stent is widely patent with excellent proximal distal transitioning. A mid 30% stenosis is identified 15 mm distal to the stent. The first diagonal artery is jailed and has an ostial 70% stenosis. This is a 2.25 mm vessel however DIAMANTE-3 flow was present down the first diagonal artery. The second diagonal artery is 2 mm in diameter and has a 40% ostial jailing. The circumflex artery Is patent with competitive flow identified from a vein graft. The ostium of the circumflex artery is jailed yet still open. Competitive flow is identified The right coronary artery Is a dominant vessel and unchanged from yesterday's cardiac catheterization. Mild stenoses are present in the proximal mid segment. The posterior descending artery has a persistent 50 to 60% stenosis as described The TATE ventriculogram reveals Not performed The left ventricular end-diastolic pressure Not measured The saphenous vein graft to the first obtuse marginal artery is widely patent. The first obtuse marginal artery then antegrade competitively fills the nondominant circumflex artery The left internal mammary artery was not cannulated due to its known occlusion from yesterday's cardiac catheterization IMPRESSION Widely patent coronary arteries as described above Jailed first and second moderate-sized diagonal arteries as described above Patent saphenous vein graft supplying the first obtuse marginal artery and competitively backfilling the [place] circumflex artery PLAN 1. Continue dual antiplatelet therapy 2. Medical management 3. At this time I am not in favor of instrumenting or stenting either first or second diagonal artery. Typically these vessels have a high patency rate despite a higher percent stenosis as described above. Unless patient experiences recalcitrant angina pectoris these vessels should be managed medically 4. LDL less than 55 5. Discharge patient home with as needed nitroglycerin for possible stent arteritis/spasm Electronically signed by : Kike Oshea, 10/28/2020 14:41:48
--- NOTE | 2020-10-28 04:34 | PC.NURSE ---
A&OX4. PT HAS TOLERATED RA WELL THROUGHOUT SHIFT. RESPIRATIONS REGULAR AND UNLABORED. LUNG SOUNDS BILATERALLY CLEAR. HAND AUTOMATIC TRANSMISSION MECHANIC EQUAL. +2 PULSES NOTED THROUGHOUT. ACTIVE BOWEL SOUNDS HEARD IN ALL 4 QUADRANTS. SOFT AND NONTENDER ABDOMEN. NO BM REPORTED. PT VOIDS PER BATHROOM INDEPENDENTLY. NO EDEMA NOTED. SKIN CDI. NO REPORTS OF CHEST PAIN THUS FAR. NITRO PASTE NOTED TO R UPPER CHEST. PT HAS REMAINED ON TELE THROUGHOUT SHIFT. PT IS CURRENTLY LYING IN BED SLEEPING. BED IN LOWEST POSITION. CALL LIGHT WITHIN REACH. VSS. WILL CONTINUE TO MONITOR.
[2020-10-28 05:40] LABS: POC Glucose,Bedside 236 (70-110)
[2020-10-28 05:40] LABS: POC Glucose,Bedside 150 (70-110)
--- NOTE | 2020-10-28 06:10 | PC.NURSE ---
PT RECEIVED TYLENOL FOR A HEADACHE. NEW NITRO PASTE PLACED ON L CHEST.
--- NOTE | 2020-10-28 06:32 | PC.NURSE ---
IS SUPPOSED TO BRING HOME MEDS IN TODAY.
--- NOTE | 2020-10-28 08:49 | HMH.HP ---
*Admission Date: 10/27/20 <Lore Jaimes - 10/28/20 09:03> *Chief complaint: Chest pain <Lore Jaimes - 10/28/20 09:03> *History of present illness: Mr. Sellers is a 65-year-old male with a history of diabetes on Tradjenta and cardiac disease who presented to [facility] last p.m. with severe anterior chest pain. He states it felt like an anvil was thrown against his chest. He said it started in the p.m. and progressively worsened. He states he was diaphoretic but denied nausea, vomiting, and shortness of breath with this. He states the chest pain was relieved after receiving a nitroglycerin in the emergency room. This a.m. the chest is sore and tender when palpated over the left anterior areas. The following is a note from the ER: Comment/Response: Dr. Oshea called in before the patient arrival. States that he put stents in the patient's LAD and left main artery today and inserted a loop recorder. He is coming back in for chest pain. Dr. Oshea says the result of his stents was perfect and he would be shocked if this pain was cardiac ischemic in nature. The patient did have a reaction to his local lidocaine during the procedure and pain from his loop recorder insertion and pain may be related to that. 19:[address] Oshea as soon as it was obtained. I also spoke to Dr. Oshea after he viewed the EKG. He states that if the patient had a stent occlusion he would be having a large anterior IA, therefore he still feels his pain is not likely ischemic. I will call him back after the patient is examined. 19:[address] Oshea after I spoke with and examined the patient. He request the patient be treated with morphine, Toradol. My feeling is the patient will need to be admitted overnight for observation and he concurs. Additional Consult: Leia Time: 20:02 Reason -: Admission Comment/Response: Agrees to admit the patient to the hospital. We discussed the patient's clinical information, including history, exam, laboratory and radiology results and ED course. Per hospital procedure, I will write temporary bridge inpatient orders on the patient. Specific orders requested by the admitting physician: Cardiac monitoring, pain control, serial enzymes General Adult HPI - General Stated complaint: chest pain Time Seen by Provider: 10/27/20 19:09 - History of Present Illness HPI narrative: 20 to 30 minutes ago he developed severe chest pain in his sternal area which he describes as somebody dropped an anvil on my chest . Associated with shortness of breath but no diaphoresis, nausea, or radiation. He has increased pain with breathing. He also began shaking uncontrollably when this started. He had cardiac stents and a loop recorder placed today by Dr. Oshea. He had had a reaction to local lidocaine when he had his loop recorder put in today. He also has had pain at the incision site of the loop recorder both during and after the procedure. However, the pain he is now describing is different and is lower in his chest than where his loop recorder is. He said he had pain similar to this about a month ago. He had gone up a ladder and developed the same type of chest pain but also had racing heart and felt his heartbeat in his neck. His chest pain increased with each beat of his heart. He says that he slept for a couple of days after that. He did not seek care at that time. He says that he had a bypass surgery, 2 vessels, the [facility] 6 months ago. The above is from the emergency room documentation. This a.m. the patient feels better. He was able to sleep during the night. He continually denies the severe chest discomfort and is breathing without difficulty. He states his anterior chest is just sore. CBC on admission showed a white blood cell count of 10,100 with a hemoglobin of 17.4 and hematocrit of 51.1. Blood chemistries show normal electrolytes and kidney function. Troponin I on a
--- NOTE | 2020-10-28 09:36 | P.CONPHA_ITS ---
[facility] Pharmacy VTE Monitoring - Patient Demographics Admission date: 10/27/20 Report Date: 10/28/20 Time: 09:36 Allergies/Adverse Reactions: Patient Allergies lisinopril Allergy (Severe, Verified 10/27/20 19:36) cough adhesive tape [ADHESIVE TAPE] Allergy (Unknown, Verified 10/27/20 19:36) metformin [METFORMIN] Allergy (Unknown, Verified 10/27/20 19:36) rosuvastatin [From Crestor] Adverse Reaction (Severe, Verified 10/27/20 19:36) atorvastatin Adverse Reaction (Intermediate, Verified 10/27/20 19:36) Height: 1.85 m Weight: 89.159 kg Patient Problems: Current Active Problems Elevated troponin I level (Acute) S/P coronary artery stent placement (Acute) CAD (coronary artery disease) (Chronic) Chest pain (Acute) Diabetes mellitus (Chronic) - VTE Risk Labs: VTE Related Lab Results Hgb 17.4 g/dL (14.1-18.0) 10/27/20 19:15 Hct 51.1 % (42.0-52.0) 10/27/20 19:15 Plt Count 155 K/mm3 (142-424) 10/27/20 19:15 BUN 15 mg/dl (9-20) 10/27/20 19:15 Creatinine 1.00 mg/dl (0.66-1.25) 10/27/20 19:15 Estimated Creat Clear 91 mL/min (50-200) 10/27/20 19:15 Was VTE Risk Assessment Performed: Yes VTE Score: 2 VTE Risk Level: Very Low Risk Clinical Trial Participant: No - Prophylaxis VTE Prophylaxis Ordered?: Yes Types of VTE Prophylaxis: TEDS Knee High Location of Applied Device: Bilateral Lower Extremeties
--- NOTE | 2020-10-28 10:00 | PC.NURSE ---
Pt. reports head ache remains, tylenol given, zofran given for nausea, Nitro patch removed. Pt. denies needs, at this time.
--- NOTE | 2020-10-28 10:23 | HMH.CNCARD ---
History of Present Illness Consult date: 10/28/20 Consult reason: chest pain Chief complaint: chest pain Additional Medical History:: 1. Angina Pectoris (10/28/2020) a. Elevated troponins 2. S/P stenting to mid distal left main and persistent moderate stenosis large posterior descending artery. a. Cath (10/27/2020 3. Coronary artery disease. 4. Essential hypertension. 5. Diabetes. 6. Hyperlipidemia. a. Statin therapy. 7. History of CABG. History of present illness: 65-year-old male presented to the emergency room throughout the evening complaining of midsternal chest pain. Patient had underwent left heart catheterization earlier that day. Postop stenting of the proximal mid distal left main artery extending into the proximal and mid LAD and persistent moderate stenosis in the large posterior descending artery. Patient stated later yesterday evening when he started breaking out into a sweat and felt tremors. Patient stated he was shaking and tremoring to where he could not stop. Patient felt he could have had a reaction to the medication. Patient stated the chest pain was becoming a heavier feeling on his chest accompanied with shortness of breath. Patient stated he felt nauseated. No vomiting noted. Patient stated that the chest pain would not ease up. Patient stated upon arrival to the emergency room he was given nitro glycerin patch, this seemed to relieve his pain. Patient stated he felt as though he may have had a panic attack also due to the tremendous shaking he was doing. Patient was also given morphine in the ED which seemed to help relieve his shaking and the chest pain. Patient was concerned after receiving the morphine because his heart rate dropped into the 40s. Patient denied feeling dizzy. No swelling noted of the lower extremity. Patient denies chest pain at this time nitro patch is noted on right chest wall. Right groin healing well after catheterization yesterday. Patient denies any bleeding or swelling from that site. Patient underwent loop recorder placement yesterday also. Patient did receive epinephrine during the loop recorder placement. Patient possibly could have had a systemic reaction to the epinephrine causing spasm of the artery. Loop recorder was placed due to 2 episodes of high heart rate. Patient stated heart rate reached 200 bpm during the 2 episodes. Initial ED work-up performed. Initial EKG revealed normal sinus rhythm with ST and T wave abnormality with heart rate of 73 bpm. Troponin x3 elevated. Creatinine and BUN within normal limits. CXR: Patchy density right lower lobe which may be related to the poor inspiration and elevated hemidiaphragm with soft tissue attenuation. Upright PA and lateral chest may provide further evaluation and to exclude right basilar infiltrate which is included in the differential diagnosis. LHC: IMPRESSION Interval loss of left internal mammary artery to the LAD Ischemic response to adenosine with an FFR index of 0.73 involving the left main LAD system Successful stenting of the proximal mid distal left main artery extending into the proximal and mid LAD in a contiguous manner Patent saphenous vein graft to the obtuse marginal artery supply the circumflex artery Normal ejection fraction Normal left ventricular end-diastolic pressure Persistent moderate stenosis in a large posterior descending artery as described above PLAN 1. Brilinta and aspirin 2. Cardiac rehabilitation 3. Avoidance of tobacco products 4. Risk factor modification 5. At this time I recommend treating the right coronary artery medically. Although the PDA could be stented there would be possible jeopardy of a moderate sized posterior lateral branch as well as jailing of a 2 mm branch off the posterior descending artery Echo: Conclusion 1. Mildly enlarged left atrium, normal left ventricular size, mild concentric left ventricular hypertrophy, visually
--- NOTE | 2020-10-28 11:06 | CA_ITS ---
APPROVED REPORT EXAM: Comprehensive 2D, Doppler, and color-flow Echocardiogram Fur Dry Cleaner Hand: Tina Ty RDCS Ht: 6 ft 0 in Wt: 196lbs BSA: 2.11 BP: 140/60 mmHg Indications: ELEVATED TROP.CP,CAD Conclusion 1. Limited echocardiogram was obtained to assess left ventricular systolic function. 2. Left ventricle is normal size with preserved left ventricular systolic function, visually estimated ejection fraction 50% with no obvious regional wall motion abnormality, although endocardial surfaces are somewhat poorly visualized. 3. No significant pericardial effusion noted. Electronically signed by : Tanner Gupta, 10/29/2020 15:38:37
[2020-10-28 12:05] LABS: POC Glucose,Bedside 149 (70-110)
--- NOTE | 2020-10-28 13:35 | PC.NURSE ---
Pt. to denture laboratory technician via Wheel chair
--- NOTE | 2020-10-28 14:45 | PC.NURSE ---
Pt. returned from slab inspector, via stretcher, report received from slab stripper nurse.
--- NOTE | 2020-10-28 14:55 | SUR.PHASEII ---
REPORT GIVEN TO Werner RAZO RN. ALL INSTRUCTIONS GIVEN TO NURSE REGARDING RADIAL BAND, HOW TO MANAGE IT, ECT. VISUAL AND VERBAL INSTRUCTIONS GIVEN. NURSE VOICED UNDERSTANDING OF ALL INSTRUCTIONS GIVEN AND INSTRUCTED TO CALL OD GRINDER OPERATOR NURSE OR OTHER TRAINED 2ND FLOOR NURSES IF ANY QUESTIONS ARISE.
--- NOTE | 2020-10-28 15:15 | PC.NURSE ---
Routine reassessment completed. Lungs CTA, Heart at RR. BS present x4. Pressure device remains in place on right wrist no bleeding noted. Pt. denies chest pain. Pt. denies needs, will continue to monitor.
--- NOTE | 2020-10-28 16:10 | PC.NURSE ---
2 ml air removed from pressure device on right wrist.
--- NOTE | 2020-10-28 16:25 | PC.NURSE ---
2ml air removed from pressure device on right wrist. no bleeding noted.
[2020-10-28 16:38] LABS: POC Glucose,Bedside 111 (70-110)
--- NOTE | 2020-10-28 16:40 | PC.NURSE ---
2ml air removed from pressure device on Right wrist. no bleeding noted.
--- NOTE | 2020-10-28 17:10 | PC.NURSE ---
2ML air removed from pressure devices on right wrist scant amount of bleeding noted, 2ml air reinsterted.
--- NOTE | 2020-10-28 17:25 | PC.NURSE ---
2 ML air removed from pressure device on right wrist, no new bleeding noted.
--- NOTE | 2020-10-28 17:40 | PC.NURSE ---
2ML air removed from pressure device on right wrist no new bleeding noted.
--- NOTE | 2020-10-28 17:55 | PC.NURSE ---
2ml air removed from pressure device on right wrist. no new bleeding noted.
--- NOTE | 2020-10-28 18:10 | PC.NURSE ---
Addendum entered by Cyndi Schneider RN 10/28/20 19:01: Pressure device removed, site cleansed with chloraprep, 2x2 with te[address]erm in [address]. Pt. tolerated well. Original Note: 2 ml air removed from pressure device on right wrist. No new bleeding noted.
--- NOTE | 2020-10-28 19:30 | PC.NURSE ---
Report given to Maricel Rust RN.
[2020-10-28 21:44] LABS: POC Glucose,Bedside 151 (70-110)
[2020-10-29] VITALS: BP 115/57; PULSE 66; PULSE 70; RESP 16; TEMP 37; O2SAT 96
[2020-10-29 04:00] VITALS: BP 103/64; PULSE 65; PULSE 69; RESP 18; TEMP 36.8; O2SAT 94
--- NOTE | 2020-10-29 04:27 | PC.NURSE ---
Pt is alert and oriented x4. Pt rested well with eyes closed this shift. No acute changes noted from previous shift. No c/o CP or CARIAS thus far this shift. Tolerated RA well with no c/o SOA. RR noted even and unlabored. Bilateral lungs noted clear t/o upon auscultation. Dsg to right radial site noted c/d/i. Pt states area is tender to touch, no s/s of hematoma noted by this RN. Dsg to chest noted c/d/i. Denies N/V/D. Ambulates independently in room, tolerates well. No edema noted. Pt refused to use urinal or collection device in toilet to measure urine this shift. Refused teds. VSS. Refused Insulin PRN per SSI. Remains safe. Call light within reach. Will continue to monitor.
[2020-10-29 05:38] VITALS: BMI 27.0
[2020-10-29 06:00] LABS: POC Glucose,Bedside 135 (70-110)
[2020-10-29 08:00] VITALS: BP 132/87; PULSE 79; PULSE 80; RESP 16; TEMP 36.8; O2SAT 97
--- NOTE | 2020-10-29 08:42 | HMH.ACPN2 ---
<Racquel Taylor - Last Filed: 10/29/20 08:42> Internal Medicine - PN: Subj *Date: 10/29/20 *Time: 08:42 Interval history: Patient states he is feeling much better today. He states this is the first day he has not had chest pain in months. He denies any shortness of breath and has been up moving around his room. He ate breakfast this morning. He is anxious to go home. Exam Vital signs and Labs for Last 24 Hours: Temp Pulse Resp BP Pulse Ox 98.3 F 69 18 103/64 L 94 L 10/29/20 04:00 10/29/20 04:00 10/29/20 04:00 10/29/20 04:00 10/29/20 04:00 Laboratory Results - last 24 hr 10/28/20 11:56: POC Glucose 149 H 10/28/20 16:07: POC Glucose 111 H 10/28/20 20:45: POC Glucose 151 H 10/29/20 05:51: POC Glucose 135 H I & O for Last 24 hours: Intake & Output 10/26/20 10/27/20 10/28/20 10/29/20 11:59 11:59 11:59 11:59 Intake Total 1220 / 1220 130 / 130 Balance 1220 / 1220 130 / 130 Weight 196 lb 8.991 oz 204 lb 2 oz - Constitutional no acute distress - *Routine Respiratory Exam Present: CTA bilaterally - *Routine Cardiovascular Exam Present: RRR - *Routine Abdominal Exam Present: soft, normoactive bowel sounds. Absent: tenderness - *Routine Extremities Exam Absent: cyanosis, clubbing, edema - *Routine Skin Exam Present: warm. Absent: rash - *Routine Neurological Exam Present: alert, oriented X3 Assessment and Plan (1) Elevated troponin I level Status: Acute Category: Medical Code(s): R77.8 - Other specified abnormalities of plasma proteins (2) Chest pain Status: Acute Qualifiers: Chest pain type: unspecified Qualified Code(s): R07.9 - Chest pain, unspecified Category: Medical Code(s): R07.9 - Chest pain, unspecified (3) CAD (coronary artery disease) Status: Chronic Qualifiers: Coronary Disease-Associated Artery/Lesion type: [place] artery [place] vs. transplanted heart: [place] heart Associated angina: with other forms of angina Qualified Code(s): I25.118 - Atherosclerotic heart disease of [place] coronary artery with other forms of angina pectoris Category: Medical Code(s): I25.10 - Atherosclerotic heart disease of [place] coronary artery without angina pectoris (4) Diabetes mellitus Status: Chronic Qualifiers: Diabetes mellitus type: type 2 Diabetes mellitus manager relationship insulin use: without manager relationship use Diabetes mellitus complication status: without complication Qualified Code(s): E11.9 - Type 2 diabetes mellitus without complications Category: Medical Code(s): E11.9 - Type 2 diabetes mellitus without complications (5) S/P coronary artery stent placement Status: Acute Category: Surgical Code(s): Z95.5 - Presence of coronary angioplasty implant and graft - Assessment and plan all Dx Assessment and Plan for all problems:: Patient likely to be discharged today but will need to be seen by cardiology first. <Regino Dupree - Last Filed: 10/29/20 09:44> Internal Medicine - PN: Subj *Date: 10/29/20 *Time: 09:43 Exam Vital signs and Labs for Last 24 Hours: Temp Pulse Resp BP Pulse Ox 98.3 F 69 18 103/64 L 94 L 10/29/20 04:00 10/29/20 04:00 10/29/20 04:00 10/29/20 04:00 10/29/20 04:00 Laboratory Results - last 24 hr 10/28/20 11:56: POC Glucose 149 H 10/28/20 16:07: POC Glucose 111 H 10/28/20 20:45: POC Glucose 151 H 10/29/20 05:51: POC Glucose 135 H I & O for Last 24 hours: Intake & Output 10/26/20 10/27/20 10/28/20 10/29/20 11:59 11:59 11:59 11:59 Intake Total 1220 / 1220 130 / 130 Balance 1220 / 1220 130 / 130 Weight 196 lb 8.991 oz 204 lb 2 oz Assessment and Plan (1) Elevated troponin I level Status: Acute Category: Medical Code(s): R77.8 - Other specified abnormalities of plasma proteins (2) Chest pain Status: Acute Qualifiers: Chest pain type: unspecified Qualified Code(s): R07.9 - Chest pain, unspecified Category: Medic
--- NOTE | 2020-10-29 10:45 | HMH.DCSUM ---
General - General Admission date:: 10/27/20 <Regino Dupree - 11/22/20 21:45> 10/27/20 <ClaudiaRacquel - 10/29/20 10:53> Discharge date: 10/29/20 <ClaudiaRacquel - 10/29/20 10:53> HPI HPI: Mr. Sellers is a 65-year-old male with a history of diabetes on Tradjenta and cardiac disease who presented to [facility] last p.m. with severe anterior chest pain. He states it felt like an anvil was thrown against his chest. He said it started in the p.m. and progressively worsened. He states he was diaphoretic but denied nausea, vomiting, and shortness of breath with this. He states the chest pain was relieved after receiving a nitroglycerin in the emergency room. This a.m. the chest is sore and tender when palpated over the left anterior areas. The following is a note from the ER: 20 to 30 minutes ago he developed severe chest pain in his sternal area which he describes as somebody dropped an anvil on my chest . Associated with shortness of breath but no diaphoresis, nausea, or radiation. He has increased pain with breathing. He also began shaking uncontrollably when this started. He had cardiac stents and a loop recorder placed today by Dr. Oshea. He had had a reaction to local lidocaine when he had his loop recorder put in today. He also has had pain at the incision site of the loop recorder both during and after the procedure. However, the pain he is now describing is different and is lower in his chest than where his loop recorder is. He said he had pain similar to this about a month ago. He had gone up a ladder and developed the same type of chest pain but also had racing heart and felt his heartbeat in his neck. His chest pain increased with each beat of his heart. He says that he slept for a couple of days after that. He did not seek care at that time. He says that he had a bypass surgery, 2 vessels, the [facility] [address] Oshea called in before the patient arrival. States that he put stents in the patient's LAD and left main artery today and inserted a loop recorder. He is coming back in for chest pain. Dr. Oshea says the result of his stents was perfect and he would be shocked if this pain was cardiac ischemic in nature. The patient did have a reaction to his local lidocaine during the procedure and pain from his loop recorder insertion and pain may be related to that. 19:[address] Oshea as soon as it was obtained. I also spoke to Dr. Oshea after he viewed the EKG. He states that if the patient had a stent occlusion he would be having a large anterior ID, therefore he still feels his pain is not likely ischemic. I will call him back after the patient is examined. 19:[address] Oshea after I spoke with and examined the patient. He request the patient be treated with morphine, Toradol. My feeling is the patient will need to be admitted overnight for observation and he concurs. (The above is from the emergency room documentation.) <Racquel Taylor - 10/29/20 10:53> Hospital Course Hospital Course: By the am after admission, the patient felt better. He was able to sleep during the night. He continually denied the severe chest discomfort and was breathing without difficulty. Troponin I on admission was less than 0.01 and increased to 6.8. Chest x-ray showed a patchy density in the right lower lobe which possibly could be related to poor inspiratory effort. The patient was seen in consultation by cardiology and they ordered an echocardiogram due to his elevated troponins. They also scheduled him for a left heart cath. His heart cath showed widely patent coronary arteries. Their plan was to continue dual antiplatelet therapy and medical management. His echo report is still pending. By 10/29/2020, the patient was completely pain-free. He denied any shortness of breath and was up moving around his room. He was anxious to go home and was stabl
== END 2020-10-29 10:20 | disposition home or self-care (01) | DRG 247 ==
LOC: ER 20:03 → 2ND 20:33
PROVIDERS: Internal Medicine; Admitting Provider Family Medicine; Emergency Provider Emergency Medicine; PCP Internal Medicine; Visit Provider Family Medicine
PROC: B2101ZZ Fluoroscopy of Single Coronary Artery using Low Osmolar Contrast (ICD-10-PCS; principal; 2020-10-28 13:30)
DX: I25.118 Atherosclerotic heart disease of native coronary artery with other forms of angina pectoris (principal); E11.9 Type 2 diabetes mellitus without complications; I10 Essential (primary) hypertension; E78.5 Hyperlipidemia, unspecified; Z79.899 Other long term (current) drug therapy; Z88.8 Allergy status to other drugs, medicaments and biological substances; Z79.82 Long term (current) use of aspirin; Z95.1 Presence of aortocoronary bypass graft
CPT/HCPCS: 33285; 36415; 71045; 80048; 82962; 84484; 85025; 85347; 86328; 92928; 93005; 93041; 93306; 93308; 93454; 93459; 93571; 96374; 96375; 99152; 99153; 99283; C1725; C1760; C1769; C1876; C1894; C9600; J0153; J1644; J2405; Q9967; U0003

== ENCOUNTER 2020-11-24 13:52 | Outpatient (RCR) | payer MEDICARE, SELFPAY | END 2021-01-20 13:57 | disposition home or self-care (01) | LOC: PT 13:52 | PROVIDERS: Visit Provider Internal Medicine | DX: I25.10 Atherosclerotic heart disease of native coronary artery without angina pectoris (principal); I10 Essential (primary) hypertension; E78.5 Hyperlipidemia, unspecified; Z95.1 Presence of aortocoronary bypass graft; Z95.5 Presence of coronary angioplasty implant and graft | CPT/HCPCS: 93798 ==

== ENCOUNTER → 2020-12-01 14:06 | Outpatient (CLI) | payer MEDICARE, SELFPAY ==
--- NOTE | 2020-12-01 14:10 | CA_ITS ---
APPROVED REPORT Insurance Agency Manager: Magda Gonzalez, RVT Indications Leg Pain CAD PT HAD CATH 10/27/20 NOW C/O KNOT RT GROIN AND STABBING PAIN IN GROIN WITH WALKING Risk Factors CAD Cardiac Disease Findings Groin: Right Negative Study suggests no evidence of pseudoaneurysm or AV fistula of the right groin. Conclusion Study suggests no evidence of pseudoaneurysm or AV fistula of the right groin. Electronically signed by : Anatoly Moody MD 12/01/2020 15:57:48
== END ==
PROVIDERS: PCP Internal Medicine; Visit Provider Nurse Practitioner Family
DX: I77.0 Arteriovenous fistula, acquired (principal)
CPT/HCPCS: 93926

== ENCOUNTER → 2020-12-28 11:04 | Outpatient (CLI) | payer MEDICARE, SELFPAY ==
[2020-12-28 11:55] LABS: Blood Urea Nitrogen 22 mg/dl (9-20); Estimated Glomerular Filt Rate 61 ml/min (>60); GFR (African American) 73 ML/MIN (>60)
== END ==
PROVIDERS: Visit Provider Internal Medicine
DX: Z01.818 Encounter for other preprocedural examination (principal)
CPT/HCPCS: 36415; 82565; 84520

== ENCOUNTER → 2020-12-30 08:40 | Outpatient (CLI) | payer MEDICARE, SELFPAY ==
--- NOTE | 2020-12-30 08:40 | CT_ITS ---
PROCEDURE: CT ABDOMEN PELVIS WO/W CON CLINICAL INDICATION: constipation Right groin pain x2 months after stents placed Right lower abd pain x2 weeks Constipation COMPARISON: CT ABDPELW/O CT ABD PELVIS W/O CONTRAST from 04/02/2016 TECHNIQUE: IV Contrast: 75ML Isovue 370 Oral Contrast None Axial images obtained with sagittal and coronal reformats. All CT scans at the facility use one or more dose reduction, viz: automated exposure control, ma/kV adjustment per patient size (including targeted exams where dose is matched to indication, i.e. head), or iterative reconstruction technique. FINDINGS: LOWER THORAX: Coronary artery stent is present. There is gynecomastia. There has been a median sternotomy. ABDOMEN & PELVIS: Gallbladder is distended. The liver, spleen, adrenal glands, pancreas, have an unremarkable appearance. Cortical scarring is present involving the right kidney posteriorly. There is a left renal cyst measuring 4.7 cm. There are punctate bilateral renal calculi. Largest stone is in the mid polar region on the left at 3 mm. No hydronephrosis. No ureteral calculi. Unremarkable appendix. There remains an rounded area of coarse calcification along the inferior aspect of the junction of the transverse colon and splenic flexure not significantly changed. There is colonic diverticulosis but no evidence of diverticulitis. There is thickening of the transverse colon, descending colon, and proximal sigmoid colon. This is nonspecific and could be due to nondistention versus mild colitis. No pelvic mass or abnormal fluid collection. The prostate is mildly prominent at 4.4 cm with coarse calcifications. There is no evidence of inguinal hematoma or mass. There is minimal soft tissue thickening anterior to the femoral artery nonspecific. No evidence of inguinal hernia. There is mild ectasia of the distal abdominal aorta and common iliac arteries. Degenerative changes are present in the lumbar spine with mild chronic wedging of L3 L2 and L1 not significantly changed. IMPRESSION: 1. Mild nonspecific thickening of the transverse descending and sigmoid colon. This may only be due to nondistention versus mild colitis. Colonic diverticulosis without diverticulitis 2. No evidence of inguinal or retroperitoneal hematoma. There is minimal thickening of the soft tissues anterior to the superficial femoral artery nonspecific and may be related to recent vascular access. 3. Nonobstructing bilateral renal calculi. 4. Other nonacute findings as described above. Dictated by: Anatoly Moody MD 12/31/2020 15:04 Anatoly Moody MD in [place] 12/31/2020 15:04
== END ==
PROVIDERS: PCP Internal Medicine; Visit Provider Internal Medicine
DX: K59.00 Constipation, unspecified (principal)
CPT/HCPCS: 74178; Q9967

== ENCOUNTER → 2021-01-04 08:39 | Outpatient (POV) | payer MEDICARE, SELFPAY | PROVIDERS: Visit Provider Nurse Practitioner Family | DX: Z00.00 Encounter for general adult medical examination without abnormal findings (principal) ==

== ENCOUNTER → 2021-01-10 10:40 | Outpatient (CLI) | payer MEDICARE, SELFPAY | PROVIDERS: PCP Internal Medicine; Visit Provider Internal Medicine Gastroenterology | DX: Z20.822 Contact with and (suspected) exposure to COVID-19 (principal) | CPT/HCPCS: U0003 ==

== ENCOUNTER 2021-01-29 11:00 | Outpatient (RCR) | payer MEDICARE, SELFPAY | END 2021-01-29 11:05 | disposition home or self-care (01) | LOC: OT 11:00 | PROVIDERS: PCP Internal Medicine; Visit Provider Orthopaedic Surgery | DX: M25.511 Pain in right shoulder (principal) | CPT/HCPCS: 97014; 97110; 97140; 97166; G0283 ==

== ENCOUNTER → 2021-05-20 12:07 | Outpatient (CLI) | payer MEDICARE, SELFPAY ==
[2021-05-20 12:34] LABS: Basophils # 0.1 K/mm3 (0-0.2); Basophils % 0.8 % (0.1-2.0); Eosinophils # 0.2 K/mm3 (0.0-0.4); Eosinophils % 2.5 % (0.1-12.0); Hematocrit 51.7 % (42.0-52.0); Hemoglobin 17.2 g/dL (14.1-18.0); Lymphocytes # 1.3 K/mm3 (0.7-4.5); Lymphocytes % 21.6 % (10-50); Mean Corpuscular HGB Conc 33.2 g/dL (31.8-35.4); Mean Corpuscular Hemoglobin 31.2 pg (27.0-31.2); Mean Corpuscular Volume 93.9 fl (80-94); Mean Platelet Volume 7.4 fl (7.4-10.4); Monocytes # 0.4 K/mm3 (0.1-1.0); Monocytes % 6.6 % (1.7-9.3); Neutrophils # 4.1 K/mm3 (1.8-7.8); Neutrophils % 68.5 % (37.0-80.0); Platelet Count 188 K/mm3 (142-424); Red Cell Distribution Width 12.5 % (11.5-17.5)
[2021-05-20 13:10] LABS: Blood Urea Nitrogen 22 mg/dl (9-20); Calcium 9.6 mg/dl (8.4-10.2); Carbon Dioxide 29 mmol/L (22.0-30.0); Chloride 101 mmol/L (98-107); Estimated Glomerular Filt Rate 75 ml/min (>60); GFR (African American) 90 ML/MIN (>60); Glucose 174 mg/dl (74-100); Sodium 137 mmol/L (136-145)
== END ==
PROVIDERS: Visit Provider Nurse Practitioner Family
DX: Z01.812 Encounter for preprocedural laboratory examination; Z11.52 Encounter for screening for COVID-19; I20.8 Other forms of angina pectoris; E78.2 Mixed hyperlipidemia; I10 Essential (primary) hypertension; Z95.1 Presence of aortocoronary bypass graft; Z95.5 Presence of coronary angioplasty implant and graft
CPT/HCPCS: 36415; 80048; 85025; U0003

== ENCOUNTER 2021-05-21 11:26 | Day surgery (SDC) | payer MEDICARE, SELFPAY ==
[2021-05-21] VITALS (9 sets, daily range): BP systolic 101–149; BP diastolic 60–95; PULSE 65–70; RESP 16–20; TEMP 36.9; O2SAT 95–100; BMI 26.0
--- NOTE | 2021-05-21 07:11 | IR_ITS ---
APPROVED REPORT Patient Location: Outpatient PROCEDURES Left heart catheterization Left ventriculogram Selective coronary angiogram Selective engagement of the saphenous vein graft to the ramus intermedius INDICATION Coronary disease, History of coronary bypass surgery, History of left main coronary artery stenting following bypass surgery and loss of HARRISON graft, Recurrent chest pain/angina pectoris Informed consent was obtained prior to the procedure. COMPLICATIONS None Estimated Blood Loss: Less than 10 mls TECHNIQUE One percent lidocaine used to anesthetize the right anterior aspect of the wrist. The right radial artery was accessed via the Seldinger technique. A 6 Telugu sheath was placed in the right radial artery. 2.5 mg of verapamil, 800 mcg of nitroglycerin, 1mg Lidocaine and 5000 U Heparin were given through the arterial sheath. The trap catheter was also used to perform left heart catheterization, left ventriculogram and selective coronary angiogram. The same catheter was used to cannulate the saphenous vein graft supplying the ramus intermedius at the end of the procedure the sheath was removed good hemostasis was achieved using Traclet band, patient was transferred to the postop holding area in stable condition. ANGIOGRAPHIC RESULTS The left main artery Has a stent in the ostial segment which is widely patent free of in-stent restenosis with excellent transitioning into the LAD with no signs of in-stent restenosis The left anterior descending artery Has a stent originating off the left main artery and extending into its mid segment. The stent is widely patent with no in-stent restenosis and excellent distal transitioning. There is an additional mid vessel 30 to 40% mid LAD stenosis. All diagonal arteries are widely patent The circumflex artery Gives rise to a high ramus intermedius which has competitive flow from the vein graft. The remaining circumflex artery has mild 10% luminal irregularities The right coronary artery Is a dominant vessel and has proximal mid vessel 10 to 20% stenoses. The posterior descending artery has a proximal 50 to 60% stenosis which involves a bifurcating vessel. The superior branches only mildly smaller than the inferior branching vessel. Both are moderate in size. The posterior lateral branch is moderate and widely patent The TATE ventriculogram reveals Normal 65% The left ventricular end-diastolic pressure 10 mmHg The saphenous vein graft to the first obtuse marginal artery is widely patent IMPRESSION Adequate coronary revascularization as described above Normal ejection fraction Normal left ventricular and SI pressure Moderate disease in the posterior descending artery which is stable from previous cardiac catheterization with mild to moderate stable disease in the mid LAD PLAN 1. Continue medical management Electronically signed by : Kike Oshea, 05/21/2021 13:07:57
== END 2021-05-21 15:13 | disposition home or self-care (01) ==
LOC: CATHLAB 11:27
PROVIDERS: PCP Internal Medicine; Visit Provider Internal Medicine
DX: I25.118 Atherosclerotic heart disease of native coronary artery with other forms of angina pectoris; Z95.1 Presence of aortocoronary bypass graft; Z95.5 Presence of coronary angioplasty implant and graft; Z79.899 Other long term (current) drug therapy; I10 Essential (primary) hypertension
CPT/HCPCS: 93459; 99152; C1725; C1769; J1644; Q9967

== ENCOUNTER 2021-05-29 11:40 | Observation (INO) | payer MEDICARE, SELFPAY ==
[2021-05-29] VITALS (9 sets, daily range): BP systolic 105–158; BP diastolic 68–101; PULSE 56–85; RESP 18–20; TEMP 35.9–36.8; O2SAT 95–98; BMI 25.2; BMI 24.5
--- NOTE | 2021-05-29 11:44 | ECG_ITS ---
APPROVED REPORT Exam: Resting ECG HR:58 bpm ECG Measurements Heart Rate 58 AXES UT 160 P 57 QRSd 88 QRS 38 QT 432 T 43 QTc 424 Conclusion Sinus bradycardia Nonspecific T wave abnormality Abnormal ECG Electronically signed by : iGldardo Grajeda, 05/30/2021 13:48:47
--- NOTE | 2021-05-29 11:49 | HMH.EDGENADL ---
ED Disposition Clinical Impression: Vertigo, Elevated partial thromboplastin time (PTT) Disposition: Admitted as Observation Condition on Discharge: Fair Referrals: Provider,Referral, [Referring] - - Critical Care Critical Care Time: No Attestation: On , the high probability of a clinically significant, sudden or life threatening deterioration of the following system(s) required my full and direct attention, intervention and personal management. The time I documented below is in addition to time spent performing reported procedures but includes the following listed in this critical care notation. Medical Decision Making - Medical Records Medical records reviewed: Yes: I reviewed the patient's medical records. MR Comment: Reviewed left heart cath results from 05/21/2021. See below. - Eugenio Inquiry Pt receiving controlled substance: No Vital Signs: 05/29/21 11:48 05/29/21 12:18 Temperature 98.3 F Temperature Source Oral Pulse Rate 56 L Pulse Rate [Right] 60 Respiratory Rate 18 Blood Pressure 106/77 L Blood Pressure [Right Arm] 152/85 H Blood Pressure Mean [Right Arm] 107 02 Sat by Pulse Oximetry 97 97 Oxygen Delivery Method Room Air - Lab Data Lab Results 05/29/21 12:00: WBC 8.6, RBC 4.99, Hgb 15.7, Hct 45.9, MCV 92.1, MCH 31.4 H, MCHC 34.1, RDW 13.3, Plt Count 152, MPV 8.5, Neut % (Auto) 78.9, Lymph % (Auto) 14.4, Polk % (Auto) 5.0, Eos % (Auto) 1.3, Baso % (Auto) 0.4, Neut # (Auto) 6.7, Lymph # (Auto) 1.2, Polk # (Auto) 0.4, Eos # (Auto) 0.1, Baso # (Auto) 0.0 05/29/21 12:00: PT 11.1, INR 0.94, APTT 05/29/21 12:00: Sodium 137, Potassium 4.8, Chloride 105, Carbon Dioxide 21 L, Anion Gap 15.8 H, BUN 22 H, Creatinine 1.00, Estimated Creat Clear 87, Estimated GFR 75, Est GFR ( Amer) 90, Glucose 275 H, Calcium 9.2, Troponin I < 0.01 05/29/21 12:00: POC Glucose 277 H Result diagrams: 05/29/21 12:00 05/29/21 12:00 Orders (Tests/Meds): ED MEDICATIONS Generic Name Dose Route Start Last Admin Trade Name Frecharlotte PRN Reason Stop Dose Admin Sodium Chloride 1,000 mls @ 999 mls/hr 05/29/21 14:15 05/29/21 14:10 Sod Chlor 0.9% 1000ml Bag IV 05/29/21 15:15 999 mls/hr .Q1H1M KRYSTIN Administration Sodium Chloride 10 ml 05/29/21 12:55 05/29/21 12:57 Sodium Chloride 0.9% 10ml Syr (Rad Only) IV 06/28/21 12:54 10 ml NEEDED PRN Administration Maintain IV Site Discontinued Medications Generic Name Dose Route Start Last Admin Trade Name Kevin PRN Reason Stop Dose Admin Iopamidol 100 ml 05/29/21 12:55 05/29/21 12:57 Iopamidol-370 (76%);100ml Bottle IV 05/29/21 12:56 100 ml ONCE ONE Administration Meclizine HCl 25 mg 05/29/21 14:07 Meclizine 25mg Tablet PO 05/29/21 14:08 ONCE ONE Ondansetron HCl 4 mg 05/29/21 14:07 05/29/21 14:10 Ondansetron 4mg/2ml Vial IV 05/29/21 14:08 4 mg ONCE ONE Administration Promethazine HCl 12.5 mg 05/29/21 14:07 Promethazine Hcl 25mg/Ml 1ml Vial IV 05/29/21 14:08 ONCE ONE Sodium Chloride 40 ml 05/29/21 12:55 05/29/21 12:57 0.9 % Sodium Chloride 50 Ml Vial IV 05/29/21 12:56 40 ml ONCE ONE Administration Sodium Chloride 25 ml 05/29/21 14:07 Sodium Chloride 0.9% 25ml Bag IV 05/29/21 14:08 ONCE ONE ORDERS Category Date Time Status Troponin I Q3H Lab 05/29/21 15:15 Ordered Troponin I Q3H Lab 05/29/21 18:15 Ordered PROCEDURES Left heart catheterization Left ventriculogram Selective coronary angiogram Selective engagement of the saphenous vein graft to the ramus intermedius INDICATION Coronary disease, History of coronary bypass surgery, History of left main coronary artery stenting following bypass surgery and loss of HARRISON graft, Recurrent chest pain/angina pectoris Informed consent was obtained prior to the procedure. COMPLICATIONS None Estimated Blood Loss: Less than 10 mls TECHNIQUE One percent lidocaine used to anesthetize the
--- NOTE | 2021-05-29 12:00 | CT_ITS ---
PROCEDURE INFORMATION: Exam: CT Angiography Head With Contrast, Arteriography Exam date and time: 05/29/2021 12:00 PM Age: 65 years old Clinical indication: Vertigo TECHNIQUE: Imaging protocol: Computed tomography angiography of the head with contrast. Exam focused on the arteries. 3D rendering (Not supervised by radiologist): MIP and/or 3D reconstructed images were created by the technologist. Radiation optimization: All CT scans at this facility use at least one of these dose optimization techniques: automated exposure control; mA and/or kV adjustment per patient size (includes targeted exams where dose is matched to clinical indication); or iterative reconstruction. Contrast material: ISOVUE; Contrast volume: 100 ml; Contrast route: INTRAVENOUS (IV); COMPARISON: CT HEAD/BRAIN WO CON 05/29/2021 12:45 PM FINDINGS: ANTERIOR CIRCULATION: Right internal carotid artery: Unremarkable. Intracranial segment is patent with no significant stenosis. No aneurysm. Right middle cerebral artery: Unremarkable. No occlusion or significant stenosis. No aneurysm. Right anterior cerebral artery: Unremarkable. No occlusion or significant stenosis. No aneurysm. Left internal carotid artery: Unremarkable. Intracranial segment is patent with no significant stenosis. No aneurysm. Left middle cerebral artery: Unremarkable. No occlusion or significant stenosis. No aneurysm. Left anterior cerebral artery: Unremarkable. No occlusion or significant stenosis. No aneurysm. POSTERIOR CIRCULATION: Right vertebral artery: Unremarkable. No occlusion or significant stenosis. No aneurysm. Left vertebral artery: Unremarkable. No occlusion or significant stenosis. No aneurysm. Basilar artery: Unremarkable. No occlusion or significant stenosis. No aneurysm. Right posterior cerebral artery: Unremarkable. No occlusion or significant stenosis. No aneurysm. Left posterior cerebral artery: Unremarkable. No occlusion or significant stenosis. No aneurysm. Brain: No definite mass, mass effect, or midline shift. Cerebral ventricles: No ventriculomegaly. Bones/joints: Unremarkable. No acute fracture. Soft tissues: Unremarkable. IMPRESSION: Unremarkable examination with no significant stenosis, no aneurysm, and no dissection.
--- NOTE | 2021-05-29 12:00 | CT_ITS ---
PROCEDURE INFORMATION: Exam: CT Head Without Contrast Exam date and time: 05/29/2021 12:00 PM Age: 65 years old Clinical indication: Other: Vertgio; Additional info: Vertigo TECHNIQUE: Imaging protocol: Computed tomography of the head without contrast. Radiation optimization: All CT scans at this facility use at least one of these dose optimization techniques: automated exposure control; mA and/or kV adjustment per patient size (includes targeted exams where dose is matched to clinical indication); or iterative reconstruction. Other technique: STROKE PROTOCOL was implemented. COMPARISON: No relevant prior studies available. FINDINGS: Brain: There is no area of intraparenchymal or extra-axial hemorrhage present. There is no focal mass. There is no midline shift. The negro-white matter junction is intact. Cerebral ventricles: No ventriculomegaly. Paranasal sinuses: Visualized sinuses are unremarkable. No fluid levels. Mastoid air cells: Visualized mastoid air cells are well aerated. Vasculature: There is no venous sinus thrombosis. Bones/joints: Unremarkable. No acute fracture. Soft tissues: The soft tissues are unremarkable. IMPRESSION: 1. No evidence for a embolism, dissection, aneurysm, or venous sinus thrombosis. There is no significant stenosis. 2. Unremarkable noncontrast examination of the brain. There is no acute intracranial abnormality. ASSESSMENT: ASPECTS (Stephanie Stroke Program Early CT Score) is 10. .
--- NOTE | 2021-05-29 12:01 | CT_ITS ---
PROCEDURE INFORMATION: Exam: CT Angiography Neck With Contrast Exam date and time: 05/29/2021 12:01 PM Age: 65 years old Clinical indication: Vertigo TECHNIQUE: Imaging protocol: Computed tomography angiography of the neck with contrast. 3D rendering (Not supervised by radiologist): MIP and/or 3D reconstructed images were created by the technologist. Radiation optimization: All CT scans at this facility use at least one of these dose optimization techniques: automated exposure control; mA and/or kV adjustment per patient size (includes targeted exams where dose is matched to clinical indication); or iterative reconstruction. Contrast material: ISOVUE; Contrast volume: 100 ml; Contrast route: INTRAVENOUS (IV); COMPARISON: CT HEAD/BRAIN WO CON 05/29/2021 12:45 PM FINDINGS: Right common carotid artery: No stenosis. No dissection or occlusion. Right internal carotid artery: No significant stenosis. No dissection or occlusion. Right external carotid artery: No occlusion or stenosis of the origin. Left common carotid artery: No stenosis. No dissection or occlusion. Left internal carotid artery: No significant stenosis. No dissection or occlusion. Left external carotid artery: No occlusion or stenosis of the origin. Right vertebral artery: No stenosis. No dissection or occlusion. Left vertebral artery: No stenosis. No dissection or occlusion. Soft tissues: Normal. No significant soft tissue swelling. Bones/joints: No acute fracture. IMPRESSION: Unremarkable examination with no significant stenosis, dissection, or occlusion. REFERENCES: NASCET CRITERIA. The degree of internal carotid artery stenosis is based on NASCET criteria. Normal is no stenosis. Mild is less than 50% stenosis. Moderate is 50-69% stenosis. Severe is 70% to 99% stenosis. Total occlusion is no detectable patent lumen.
--- NOTE | 2021-05-29 12:04 | XR_ITS ---
PROCEDURE INFORMATION: Exam: XR Chest Exam date and time: 05/29/2021 12:04 PM Age: 65 years old Clinical indication: Other: Vertigo; Prior surgery; Additional info: Vertigo, vomiting TECHNIQUE: Imaging protocol: XR of the chest. Views: 1 view. COMPARISON: CR XR CHEST PORTABLE 10/27/2020 7:41 PM FINDINGS: Tubes, catheters and devices: There are sternal wires from a previous sternotomy incision. Lungs: No focal consolidation. No mass. Pleural spaces: No pleural effusion. No pneumothorax. Heart/Mediastinum: Unremarkable. No cardiomegaly. Bones/joints: Unremarkable. There is no acute fracture present. IMPRESSION: No acute cardiac or pulmonary process.
[2021-05-29 12:07] LABS: POC Glucose,Bedside 277 (70-110)
[2021-05-29 12:12] LABS: Basophils % 0.4 % (0.1-2.0); Eosinophils # 0.1 K/mm3 (0.0-0.4); Eosinophils % 1.3 % (0.1-12.0); Hematocrit 45.9 % (42.0-52.0); Hemoglobin 15.7 g/dL (14.1-18.0); Lymphocytes # 1.2 K/mm3 (0.7-4.5); Lymphocytes % 14.4 % (10-50); Mean Corpuscular HGB Conc 34.1 g/dL (31.8-35.4); Mean Corpuscular Hemoglobin 31.4 pg (27.0-31.2); Mean Corpuscular Volume 92.1 fl (80-94); Mean Platelet Volume 8.5 fl (7.4-10.4); Monocytes # 0.4 K/mm3 (0.1-1.0); Neutrophils # 6.7 K/mm3 (1.8-7.8); Neutrophils % 78.9 % (37.0-80.0); Platelet Count 152 K/mm3 (142-424); Red Blood Count 4.99 M/mm3 (4.60-6.20); Red Cell Distribution Width 13.3 % (11.5-17.5); White Blood Count 8.6 K/mm3 (4.8-10.8)
[2021-05-29 12:14] LABS: Chloride 105 mmol/L (98-107)
[2021-05-29 12:15] LABS: Potassium 4.8 mmoL/L (3.5-5.1); Sodium 137 mmol/L (136-145)
[2021-05-29 12:17] LABS: Blood Urea Nitrogen 22 mg/dl (9-20); Creatinine Clearance Estimated 87 mL/min (50-200); Estimated Glomerular Filt Rate 75 ml/min (>60); GFR (African American) 90 ML/MIN (>60)
[2021-05-29 12:18] LABS: Anion Gap 15.8 mEq/L (5-15); Calcium 9.2 mg/dl (8.4-10.2); Carbon Dioxide 21 mmol/L (22.0-30.0); Glucose 275 mg/dl (74-100)
[2021-05-29 12:24] LABS: INR 0.94 (0.9-1.1); Prothrombin Time 11.1 seconds (10.1-12.5)
[2021-05-29 12:32] LABS: Troponin I < 0.01 ng/ml (0.00-0.034)
--- NOTE | 2021-05-29 12:43 | PC.NURSE ---
pt to rad
--- NOTE | 2021-05-29 12:49 | PC.NURSE ---
LAB NOTIFIED ANTONIO MENDEZ OF CRITICAL PTT OF GREATER THAN 140
--- NOTE | 2021-05-29 13:08 | PC.NURSE ---
PATIENT RETURNED FROM CT AT THIS TIME
--- NOTE | 2021-05-29 13:32 | PC.NURSE ---
Dr Acosta speaking with AD
--- NOTE | 2021-05-29 14:16 | PC.NURSE ---
Dr Taras seth.
[2021-05-29 14:45] LABS: Coronavirus 19, PCR Not Detected (NotDetected); Influenza A, PCR Not Detected (NotDetected); Influenza B, PCR Not Detected (NotDetected)
--- NOTE | 2021-05-29 15:31 | PC.NURSE ---
Gave report to Valarie Holland RN at this time
--- NOTE | 2021-05-29 15:45 | PC.NURSE ---
pt arrived to the floor at this time.
[2021-05-29 16:36] LABS: Troponin I < 0.01 ng/ml (0.00-0.034)
[2021-05-29 16:45] LABS: POC Glucose,Bedside 211 (70-110)
--- NOTE | 2021-05-29 20:37 | HMH.HP ---
*Admission Date: 05/29/21 *Chief complaint: Nausea vertigo *History of present illness: Patient complains of vertigo that began this morning. Broke out in a sweat, nauseated and vomiting. Feels generally weak, unable to stand because of weakness in his legs. Says he has some involuntary twitching of his arms and legs. Denies loss of vision or diplopia. States that he felt like all the blood rash to his head and made him immediately feel congested. Says that he feels like he is having difficulty hearing and speaking. No previous similar symptoms. Prior history of coronary artery disease with coronary artery bypass surgery. Just had a heart cath by Dr. Oshea on Monday05/21/2021 for evaluation of chest pain. Heart cath was negative, started on a PPI for presumed gastric source. Above note per emergency department. Patient feels much better after being admitted from ER and having meclizine, antiemetics and fluids along with 1 dose of IV steroids. He is actually wondering if his PPI that he started [id number] 3 days ago has started the vertigo because I am very sensitive to medications. [facility] History I have reviewed the patient's past medical history: Yes Medical History: Reports:: Coronary Artery Disease, Diabetes Mellitus Type 2, Hyperlipidemia, Hypertension Denies:: Cancer, Diabetes Mellitus Type 1, Internal Pacemaker, MRSA, Seizures *Have you ever received a pneumonia vaccine?: Yes *Have you received a flu vaccine this season?: Yes Other Medical History: Reports: Arthritis, Cataracts Laterality Cases: Right: Arthroscopy Hip, Arthroscopy Knee, Bilateral: Arthroscopy Shoulder, Cataract, Tonsillectomy Other Surgeries: Yes: CABG, Cardiac Catheterization, Cardiac Surgery, Colonoscopy, Coronary Stent. No: Pacemaker Amputation: No Fractures: No - *Social History Last grade of school completed: Advanced degree Smoking Status: Never smoker Alcohol Intake: never Alcohol Intake Frequency:: a few times a week Substance Use Type: denies use *Occupational Status:: employed Housing: house Household Members: spouse *Travel in the last 8 weeks: None Family Hx:: Cancer, Diabetes, Heart Attack, Hyperlipidemia Review of Systems - Review of Systems Review of systems:: pertinent systems reviewed and negative unless documented below - *Neurologic Reports unsteadiness, Reports headache(s), Reports dizziness, Reports weakness, Denies localized weakness, Denies numbness Meds Home Medications Medication Instructions Recorded Confirmed Type dulaglutide 0.75 mg/0.5 mL 0.75 mg SQ WEEKLY ml 03/31/20 05/29/21 History subcutaneous pen injector acetaminophen 325 mg tablet 325 mg PO BID PRN tab 06/09/20 05/29/21 History Methocarbamol [Robaxin 500mg Tab*] 500 mg PO TIDP PRN 10/27/20 05/29/21 History ticagrelor 90 mg tablet 90 mg PO BID #180 tab 11/03/20 05/29/21 Rx polyethylene glycol 3350 17 17 g PO DAILY 02/02/21 05/29/21 History gram/dose oral powder aspirin 81 mg tablet,delayed 81 mg PO DAILY #100 tab 02/23/21 05/29/21 Rx release nitroglycerin 0.4 mg sublingual 0.4 mg SUBLINGUAL Q5-15M PRN #25 05/19/21 05/29/21 Rx tablet tab metoprolol tartrate 25 mg tablet 12.5 mg PO BID tab 05/20/21 05/29/21 History ranolazine 1,000 mg 1,000 mg PO BID tab 05/20/21 05/29/21 History tablet,extended release,12 hr Evolocumab [Alexandra Martinez] See Rx Instructions .ROUTE .COMPLEX 05/21/21 05/29/21 History Omeprazole 40 mg PO DAILY 05/29/21 05/29/21 History Allergies Allergy/AdvReac Type Severity Reaction Status Date / Time lisinopril Allergy Severe cough Verified 05/26/21 15:04 adhesive tape [ADHESIVE TAPE] Allergy Unknown Verified 05/26/21 15:04 metformin [METFORMIN] Allergy Unknown Verified 05/26/21 15:04 rosuvastatin [From Crestor] AdvReac Severe Verified 05/26/21 15:04 atorvastatin AdvReac Intermediate Verified 05/26/21 15:04 Exam Vital signs and Labs for Last 24 Hours: Temp Pulse Resp BP Pulse Ox 98.1 F 63 18
[2021-05-29 21:32] LABS: POC Glucose,Bedside 323 (70-110)
--- NOTE | 2021-05-30 03:52 | PC.NURSE ---
Patient is A&Ox4. No complaints of pain. Patient ambulated to bathroom with stand by assist. Patient seems very anxious when touches or staff approaches patient. VSS. No complaints of dizziness. No further concerns voiced to RN.
[2021-05-30 04:00] VITALS: BP 123/75; PULSE 81; RESP 18; TEMP 36.9; O2SAT 96
[2021-05-30 05:53] LABS: POC Glucose,Bedside 245 (70-110)
[2021-05-30 06:05] VITALS: BMI 23.8
[2021-05-30 06:24] LABS: Basophils % 0.1 % (0.1-2.0); Eosinophils % 0.1 % (0.1-12.0); Hematocrit 45.3 % (42.0-52.0); Hemoglobin 15.3 g/dL (14.1-18.0); Lymphocytes # 0.8 K/mm3 (0.7-4.5); Lymphocytes % 5.5 % (10-50); Mean Corpuscular HGB Conc 33.8 g/dL (31.8-35.4); Mean Corpuscular Hemoglobin 31.3 pg (27.0-31.2); Mean Corpuscular Volume 92.6 fl (80-94); Mean Platelet Volume 8.4 fl (7.4-10.4); Monocytes # 0.3 K/mm3 (0.1-1.0); Neutrophils # 13.6 K/mm3 (1.8-7.8); Neutrophils % 92.3 % (37.0-80.0); Platelet Count 162 K/mm3 (142-424); Red Blood Count 4.89 M/mm3 (4.60-6.20); Red Cell Distribution Width 13.1 % (11.5-17.5); White Blood Count 14.7 K/mm3 (4.8-10.8)
[2021-05-30 06:28] LABS: Activated Partial Thrombo Time 24.1 seconds (22.8-30.6); MANUAL DIFFERENTIAL MANUAL DIFFERENTIAL (MANUAL DIFF)
[2021-05-30 06:53] LABS: Anion Gap 14.6 mEq/L (5-15); Blood Urea Nitrogen 17 mg/dl (9-20); Calcium 8.8 mg/dl (8.4-10.2); Carbon Dioxide 21 mmol/L (22.0-30.0); Chloride 106 mmol/L (98-107); Creatinine Clearance Estimated 84 mL/min (50-200); Estimated Glomerular Filt Rate 97 ml/min (>60); GFR (African American) 117 ML/MIN (>60); Glucose 253 mg/dl (74-100); Potassium 4.6 mmoL/L (3.5-5.1); Sodium 137 mmol/L (136-145)
[2021-05-30 07:52] LABS: Lymphocytes % 11 % (10-50); Monocytes % 2 % (2-9); Neutrophils % 87 % (42-76); Platelet Estimate Normal; RBC Morphology Normal; Total Cells Counted 100
[2021-05-30 08:00] VITALS: BP 138/77; PULSE 82; RESP 17; TEMP 36.7; O2SAT 97
--- NOTE | 2021-05-30 08:12 | HMH.DCSUM ---
General - General Admission date:: 05/29/21 Discharge date: 05/30/21 HPI HPI: Patient complains of vertigo that began this morning. Broke out in a sweat, nauseated and vomiting. Feels generally weak, unable to stand because of weakness in his legs. Says he has some involuntary twitching of his arms and legs. Denies loss of vision or diplopia. States that he felt like all the blood rash to his head and made him immediately feel congested. Says that he feels like he is having difficulty hearing and speaking. No previous similar symptoms. Prior history of coronary artery disease with coronary artery bypass surgery. Just had a heart cath by Dr. Oshea on Monday05/21/2021 for evaluation of chest pain. Heart cath was negative, started on a PPI for presumed gastric source. Above note per emergency department. Patient feels much better after being admitted from ER and having meclizine, antiemetics and fluids along with 1 dose of IV steroids. He is actually wondering if his PPI that he started [id number] 3 days ago has started the vertigo because I am very sensitive to medications. Hospital Course Hospital Course: Overnight patient did well, and this morning he feels back to normal. He is a little concerned about recurrence of his vertigo, and we discussed changing Prilosec to Pepcid which he thinks may have caused some of the symptoms and also using meclizine as needed. Also recommended aggressive hydration and following a low-salt diet. Patient has been seeing a physician at [facility] who is retiring, and wishes to establish care in [place]. I made him an appointment with us in the next couple of weeks. Interestingly he will be camping next week and then has cataract surgery the following week so we will initiate appointment after that. We reviewed his recent bypass and stent placement. He continues to have some chest pain and takes Ranexa with fairly good results. Of note, on admission patient had a PTT level that was exceedingly high, I retested that this morning and it is now normal, possibly drawn with some type of the chemical or lab error last night. His white blood cell count is slightly elevated today but I think that is from the steroids that he was given last night which resolved his vertigo. Glucose levels are also slightly elevated, again patient is type II diabetic and had steroids last night. Objective Vital signs: Temp Pulse Resp BP Pulse Ox 98.4 F 81 18 123/75 96 05/30/21 04:00 05/30/21 04:00 05/30/21 04:00 05/30/21 04:00 05/30/21 04:00 no acute distress - *Routine HEENT Exam Head: Present: normocephalic Eye: Present: EOMI, PERRL ENT: Present: mucous membranes moist - *Routine Neck Exam Present: supple - *Routine Respiratory Exam Present: CTA bilaterally - *Routine Cardiovascular Exam Present: RRR - *Routine Abdominal Exam Present: soft, normoactive bowel sounds. Absent: tenderness - *Routine Extremities Exam Absent: cyanosis, clubbing, edema - *Routine Skin Exam Present: warm. Absent: rash - Detailed Eye Exam Eyelids: Bilateral normal inspection Results Labs on day of discharge: Labs from last 24 hours 05/30/21 05/30/21 05/30/21 05:28 05:28 05:28 WBC RBC Hgb Hct MCV MCH MCHC RDW Plt Count MPV Neut % (Auto) Lymph % (Auto) [place] % (Auto) Eos % (Auto) Baso % (Auto) Neut # (Auto) Lymph # (Auto) [place] # (Auto) Eos # (Auto) Baso # (Auto) Total Counted Neutrophils % (Manual) Lymphocytes % (Manual) Monocytes % (Manual) Platelet Estimate RBC Morphology PT INR APTT 24.1 Sodium 137 Potassium 4.6 Chloride 106 Carbon Dioxide 21 L Anion Gap 14.6 BUN 17 Creatinine 0.80 Estimated Creat Clear 84 Estimated GFR 97 Est GFR ( Amer) 117 D Glucose 253 H POC Glucose 245 H Calcium 8.8 Troponin
--- NOTE | 2021-05-30 08:33 | HMH.PHAVTE ---
[facility] Pharmacy VTE Monitoring - Patient Demographics Admission date: 05/30/21 Report Date: 05/30/21 Time: 08:33 Allergies/Adverse Reactions: Patient Allergies lisinopril Allergy (Severe, Verified 05/26/21 15:04) cough adhesive tape [ADHESIVE TAPE] Allergy (Unknown, Verified 05/30/21 08:19) Unknown allergy reaction metformin [METFORMIN] Allergy (Unknown, Verified 05/30/21 08:19) Unknown allergy reaction rosuvastatin [From Crestor] Adverse Reaction (Severe, Verified 05/30/21 08:19) Unknown allergy reaction atorvastatin Adverse Reaction (Intermediate, Verified 05/30/21 08:19) Unknown allergy reaction Height: 1.85 m Weight: 81.647 kg - VTE Risk Labs: VTE Related Lab Results Hgb 15.3 g/dL (14.1-18.0) 05/30/21 05:28 Hct 45.3 % (42.0-52.0) 05/30/21 05:28 Plt Count 162 K/mm3 (142-424) 05/30/21 05:28 PT 11.1 seconds (10.1-12.5) 05/29/21 12:00 INR 0.94 (0.9-1.1) 05/29/21 12:00 APTT 24.1 seconds (22.8-30.6) 05/30/21 05:28 BUN 17 mg/dl (9-20) 05/30/21 05:28 Creatinine 0.80 mg/dl (0.66-1.25) 05/30/21 05:28 Estimated Creat Clear 84 mL/min (50-200) 05/30/21 05:28 Was VTE Risk Assessment Performed: Yes VTE Score: 1 VTE Risk Level: Low Risk Clinical Trial Participant: No - Prophylaxis VTE Prophylaxis Ordered?: Yes Types of VTE Prophylaxis: TEDS Knee High Location of Applied Device: Not Applicable
== END 2021-05-30 09:05 | disposition home or self-care (01) ==
LOC: ER 14:28 → 2ND 15:13
PROVIDERS: Admitting Provider Internal Medicine Adolescent Medicine; Emergency Provider Emergency Medicine; PCP Internal Medicine; Visit Provider Internal Medicine Adolescent Medicine
DX: R79.1 Abnormal coagulation profile (principal); I25.10 Atherosclerotic heart disease of native coronary artery without angina pectoris; Z95.1 Presence of aortocoronary bypass graft; I10 Essential (primary) hypertension; E78.5 Hyperlipidemia, unspecified; E11.9 Type 2 diabetes mellitus without complications; Z95.5 Presence of coronary angioplasty implant and graft; Z79.899 Other long term (current) drug therapy; Z88.8 Allergy status to other drugs, medicaments and biological substances; R42 Dizziness and giddiness; Z20.822 Contact with and (suspected) exposure to COVID-19; Z79.01 Long term (current) use of anticoagulants; Z79.84 Long term (current) use of oral hypoglycemic drugs
CPT/HCPCS: 70450; 70496; 70498; 71045; 80048; 82962; 84484; 85007; 85025; 85610; 85730; 93005; 96374; 96375; 99284; 99291; G0378; J2405; Q9967; U0003

== ENCOUNTER 2021-07-16 07:20 | Day surgery (SDC) | payer MEDICARE, SELFPAY ==
[2021-07-16 07:27] VITALS: BMI 25.0
[2021-07-16 08:02] VITALS: BP 129/87; PULSE 60; PULSE 67; RESP 18; TEMP 36.6; O2SAT 99
[2021-07-16 08:49] VITALS: BP 138/89; PULSE 66; RESP 16; O2SAT 99
[2021-07-16 09:03] VITALS: BP 139/89; PULSE 67; TEMP 36.6; O2SAT 100
--- NOTE | 2021-07-16 10:51 | HMH.PROC ---
[facility] Procedure Note Procedure Note:: Patient was brought to the cardiac Director Call [facility] as an outpatient for loop recorder removal. Using minimum amount of lidocaine with epinephrine (prior history of allergic reaction after implantation requiring ER visit with subsequent IV Benadryl and steroid therapy) to anesthetize the area over the loop recorder site. Scalpel was used to dissect down to the loop recorder and forceps used to remove the loop recorder without complications. Patient tolerated procedure well with no complications apparent immediately after. He was given oral Benadryl prior to discharge with instruction to call if recurrent allergic reaction occurred or come to the ER. Patient will follow up in the office in 1 to 2 weeks or sooner if needed
== END 2021-07-16 09:10 | disposition home or self-care (01) ==
LOC: CATHLAB 07:22
PROVIDERS: PCP Internal Medicine Adolescent Medicine; Visit Provider Internal Medicine
DX: I25.10 Atherosclerotic heart disease of native coronary artery without angina pectoris (principal); Z45.09 Encounter for adjustment and management of other cardiac device
CPT/HCPCS: 33286

== ENCOUNTER → 2021-09-21 15:17 | Outpatient (POV) | payer MEDICARE, SELFPAY | PROVIDERS: Visit Provider Dermatology | DX: Z00.00 Encounter for general adult medical examination without abnormal findings (principal) ==

== ENCOUNTER → 2021-10-09 11:23 | Outpatient (CLI) | payer MEDICARE, SELFPAY ==
--- NOTE | 2021-10-09 11:49 | MR_ITS ---
PROCEDURE INFORMATION: Exam: MR Left Lower Extremity Without Contrast, Femur Exam date and time: 10/09/2021 11:49 AM Age: 66 years old Clinical indication: Pain; Lower leg; Left; Patient HX: PT was picking up gate 4 days ago when he felt a pop in back of leg, bruising distal femur. ; Additional info: Strain of left hamstring, left leg pain TECHNIQUE: Imaging protocol: MR of the Left femur without contrast. COMPARISON: CT ABDOMEN PELVIS WO/W CON 12/30/2020 8:56 AM FINDINGS: Limitations: The large field of view needed to image the entire thigh precludes a detailed evaluation of the hip and knee. Absence of IV gadolinium. Bones/joints: There is no acute fracture or dislocation. No aggressive bone lesions are present. Muscles: Intramuscular edema and subtle areas of muscle fiber disruption involving the biceps femoris long head are consistent with a partial thickness muscle tear (grade II muscle injury). A heterogeneous masslike area measuring 3 x 2.3 x 4.1 cm (AP, ML, CC) is located in or abutting the biceps femoris long head muscle at the level of the mid thigh (measured on series 29/image 20 and series 18/image 16). This mass contains ill-defined regions of increased T1 weighted signal suggesting hemorrhagic or proteinaceous contents. IV contrast was not administered. A hematoma is favored but a hemorrhagic tumor cannot be excluded based on MR imaging. Severe edema involves the surrounding soft tissues. Soft tissues: See Muscles finding. Reproductive: Small bilateral hydroceles are partially imaged. IMPRESSION: 1. Hemorrhagic mass measuring 3 x 2.3 x 4.1 cm in or abutting the biceps femoris long head muscle at the level of the midthigh favored to represent a hematoma. This mass should be followed to resolution to exclude the small chance of an underlying hemorrhagic neoplasm. 2. Partial-thickness muscle tear involving the biceps femoris long head muscle (grade II muscle injury).
== END ==
PROVIDERS: PCP Internal Medicine Adolescent Medicine; Visit Provider Internal Medicine Adolescent Medicine
DX: M79.605 Pain in left leg (principal); S76.312A Strain of muscle, fascia and tendon of the posterior muscle group at thigh level, left thigh, initial encounter
CPT/HCPCS: 73718

== ENCOUNTER → 2021-10-22 10:37 | Outpatient (CLI) | payer MEDICARE, SELFPAY ==
--- NOTE | 2021-10-22 10:42 | XR_ITS ---
PROCEDURE: XR FEMUR LT 2V CLINICAL INDICATION: LT femur pain COMPARISON: No exams were available for comparison FINDINGS: No fracture or dislocation. No lytic or blastic change. There is normal mineralization. Minimal vascular calcification noted. There is slight decrease in the joint space superiorly suggesting early osteoarthritic change. Calcific density anterior to the mid aspect of the patella nonspecific IMPRESSION: Slight decrease in the hip joint space superiorly suggesting early osteoarthritic change otherwise negative Dictated by: Anatoly Moody MD 10/22/2021 13:02 Anatoly Moody MD in [place] 10/22/2021 13:02
--- NOTE | 2021-10-22 12:14 | CA_ITS ---
APPROVED REPORT Left Lower Extremity Venous Study for DVT. Power And Recovery Shift Engineer: EMETERIO KnightT Indications Lower Extremity Pain: Left Lower Extremity Edema: Left evaluate for a blood clot,LT CALF PAIN/TIGHTNESS,S/P LT HAMSTRING TEAR Risk Factors Trauma Medications PLAVIX Vein Imaging CFV (L): compressive, spontaneous, phasic, augmentation FEM (L): compressive, spontaneous, phasic, augmentation POP (L): compressive, spontaneous, phasic, augmentation PTV (L): Compressible GSV (L): Compressible Peroneals (L):Compressible GAS (L): Compressible Findings Study suggests no evidence of DVT or SVT of the left lower extremity. Conclusion Study suggests no evidence of DVT or SVT of the left lower extremity. Electronically signed by : Anatoly Moody MD 10/22/2021 14:23:35
== END ==
PROVIDERS: PCP Internal Medicine Adolescent Medicine; Visit Provider Orthopaedic Surgery
DX: S76.312A Strain of muscle, fascia and tendon of the posterior muscle group at thigh level, left thigh, initial encounter (principal); M79.605 Pain in left leg; M79.89 Other specified soft tissue disorders
CPT/HCPCS: 73552; 93971

== ENCOUNTER → 2021-11-09 08:06 | Outpatient (CLI) | payer MEDICARE, SELFPAY | PROVIDERS: PCP Internal Medicine Adolescent Medicine; Visit Provider Nurse Practitioner | DX: Z20.822 Contact with and (suspected) exposure to COVID-19 (principal) | CPT/HCPCS: C9803; U0003; U0005 ==

== ENCOUNTER 2021-12-07 10:00 | Outpatient (RCR) | payer MEDICARE, SELFPAY ==
--- NOTE | 2021-11-24 15:05 | HMH.PTOPEV ---
PT Outpatient Evaluation Rehab PT Outpatient Evaluation Start: 11/24/21 14:05 Freq: Status: Active Protocol: Document 11/24/21 14:55 CHENCHO (Rec: 11/24/21 15:05 PHOHIRAM [id number]) Electronically Signed By Cody Rehman, PT 11/24/21 14:55 Outpatient Therapy Subjective History Subjective History Pt is 66 yowm who presents ~ 6 wks S/P [place] with L hamstring tear confirmed by MRI. He reports he initially had a large hematoma on the posterior L thigh which eventually covered most of his L LE superficially. He is currently on anticoagulants due to underlying CAD. He reports most of his pain is gone, but some stiffness and tight muscles remain. Discomfort is worse with prolonged sitting and better with walking. PMH: CAD, DM-II, HTN, HL. Chief Complaint Pain,Stiff Symptom Type Ache Symptoms Relieved By Heat,Activity Symptoms Aggravated By Sitting Prior Functional Limitations None Current Functional Limitations Sleeping,Sitting Symptom Description Intermittent Level of pain today (0-10) 2 Pain scale - at its worst (0-10) 3 Hip/Knee Eval Gait Observation General Gait Pattern Observation No Deviations/Normal Palpation Tenderness left Knee Palpation Finding Tenderness Knee Palpation Overall Comment posterior L LE from mid-thigh to mid-calf Hip Palpation Findings Tenderness MMT Hip Flexion Strength Grade 5 Normal Hip Abduction Strength Grade 4 Good Hip Adduction Strength Grade 5 Normal Hip Extension Strength Grade 4 Good Knee Extension Strength Grade 5 Normal Knee Flexion Strength Grade 4 Good Special Tests Hip Scouring (Quadrant) Test Negative Left,Negative Right Amrit Test Negative Outpatient Therapy Assessment Impairments Problems/Impairmments Palpation Tenderness,Impaired Strength,Impaired Endurance, Impaired Walking,Impaired Standing,Impaired Sitting, Impaired Recreational Activities,Impaired Work Activities,Increased Edema, Lymphedema Present,Subjective C/O Pain,Impaired Self Care/
== END 2021-12-07 10:05 | disposition home or self-care (01) ==
LOC: PT 10:00
PROVIDERS: PCP Internal Medicine Adolescent Medicine; Visit Provider Orthopaedic Surgery
DX: S76.312D Strain of muscle, fascia and tendon of the posterior muscle group at thigh level, left thigh, subsequent encounter (principal)
CPT/HCPCS: 97110; 97163; 97535

== ENCOUNTER → 2022-01-14 10:43 | Outpatient (CLI) | payer MEDICARE, SELFPAY | PROVIDERS: PCP Internal Medicine Adolescent Medicine; Visit Provider Nurse Practitioner | DX: Z20.822 Contact with and (suspected) exposure to COVID-19 (principal) | CPT/HCPCS: C9803; U0003; U0005 ==

== ENCOUNTER → 2022-02-07 08:14 | Outpatient (CLI) | payer MEDICARE, SELFPAY ==
--- NOTE | 2022-02-07 08:15 | US_ITS ---
FINAL REPORT CLINICAL HISTORY: typical angina; history of heart bi-pass surgery and stents FINDINGS: ABDOMINAL ULTRASOUND COMPLETE: TECHNIQUE: Ultrasound images of the abdomen were obtained. FINDINGS: The liver is unremarkable. The gallbladder contains minimal sludge. The common duct is normal. The right kidney measures 10.5 cm in length and is normal in echogenicity without hydronephrosis. The left kidney measures 10.3 cm in length and is normal in echogenicity without hydronephrosis. There is a 3.9 x 3.5 cm cyst in the left kidney. The spleen is unremarkable. The aorta is normal in caliber. The vena cava is unremarkable. IMPRESSION: Minimal sludge in the gallbladder. Left renal cyst. Reviewed, Interpreted and Dictated by Elver Pena MD Transcribed by Thong Davis Authenticated by Elver Pena MD on 02/07/2022 10:42:[address] [facility]
== END ==
PROVIDERS: PCP Internal Medicine Adolescent Medicine; Visit Provider Internal Medicine
DX: E78.5 Hyperlipidemia, unspecified (principal); I10 Essential (primary) hypertension; I20.9 Angina pectoris, unspecified; R10.31 Right lower quadrant pain; Z95.1 Presence of aortocoronary bypass graft; Z95.5 Presence of coronary angioplasty implant and graft
CPT/HCPCS: 76700

== ENCOUNTER → 2022-02-09 11:44 | Outpatient (CLI) | payer MEDICARE, SELFPAY ==
--- NOTE | 2022-02-09 | CA_ITS ---
APPROVED REPORT Exam: Exercise Treadmill Technologist: Romana June Ht: 6 ft 1 in Wt: 196 lbs BSA: 2.13 m2 HR: 69 bpm BP: 131/83 mmHg Indications: Chest pain, CAD, Angina Medical History Medications: Aspirin,,,,, Metoprolol,,,,, CloPIdogrel,,,,, Famotidine,,,,, Acetaminophen,,,,, Meclizine,,,,, Nitroglycerin,,,,, Methocarbamol,,,,, DulaGLUTIDE,,,,, Evolocumab,,,,, Stress Test Details Test: Hari HR Resting HR: 71 bpm Max Heart Rate (APMHR): 153.658911 bpm Max HR Achieved: 151 bpm Target HR (85% APMHR): 130.666780 bpm % of APMHR: 98.69 Recovery HR: 87 bpm BP Resting BP: 131.0/83.0 mmHg Max BP: 185.0/92.0 mmHg Recovery BP: 144.0/91.0 mmHg ECG Resting ECG: Normal sinus rhythm, NS ST abnormalities inferiorly and laterally Clinical Exercise duration: 08:59 min Highest Stage Achieved: Exercise capacity: 10.1 METs Stress ECG Conclusion Patient exercised 9:00 on Hari Protocol. Test stopped due to shortness of air, fatigue. Symptoms: Chest tightness and shortness of air. Arrhythmias/Ectopy: Occasional PVC ST-T Changes: 1.5 - 2 mm of horizontal and downsloping ST depression inferiorly. [address] depression laterally. Conclusion: EKG changes positive for ischemia. Myoview images reported separately. Test Summary REST . . . . . . . Sitting REST . . . . . . . Standing REST 04:16 0.0 0.0 71 . 131/ 83 . . Stage 1 01:00 10.0 1.7 93 . . . . Stage 1 02:00 10.0 1.7 97 . . . . Stage 1 03:00 10.0 1.7 95 . 162/ 90 . . Stage 2 01:00 12.0 2.5 114 . . . . Stage 2 02:00 12.0 2.5 114 . . . . Stage 2 03:00 12.0 2.5 121 . 185/ 92 . . Stage 3 01:00 14.0 3.4 135 . . . . Stage 3 . . . . . . . Myoview Injected Stage 3 02:00 14.0 3.4 143 . . . . Stage 3 02:59 14.0 3.4 150 . . . Stop exercise at 08:59 RECOVERY 01:00 0.0 0.0 115 . . . . RECOVERY 02:00 0.0 0.0 89 . 176/ 92 . . RECOVERY 03:00 0.0 0.0 85 . 176/ 92 . . RECOVERY 04:00 0.0 0.0 85 . 146/ 86 . . RECOVERY 05:00 0.0 0.0 87 . 144/ 91 . . RECOVERY 05:21 0.0 0.0 85 . 144/ 91 . . Electronically signed by : Tanner Gupta MD 02/09/2022 19:40:03
--- NOTE | 2022-02-09 11:45 | NM_ITS ---
APPROVED REPORT Exam: Nuclear Stress Test Indication: CHEST PAIN..SYNCOPE..FATIGUE Patient Location: Outpatient [place] Tech:KENY Vaughn RT (R)(N)(M) Ht: 6 ft 0 in Wt: 190 lbs HR: 69 bpm BP: 131/83 mmHg BSA: 2.08 m2 History: CHEST PAIN..SYNCOPE..FATIGUE Procedure: Patient exercised on Hari protocol 8:59 minutes and sec, resting heart rate 69 bpm, resting blood pressure 131/83 mmHg, with exercise maximum heart rate achived was 151 bpm which is 99 % of the maximum predicted heart rate and blood pressure was 185/92 mmHg. Patient has good exercise capacity, achieved 10.1 METs of workload on treadmill, the blood pressure response to exercise was Adequate. Electrocardiogram Resting electrocardiogram showed sinus rhythm, with exercise there is [address] segment depression noted from the baseline EKG. The EKG portion of the exercise Myoview is positive for ischemia. Cardiac Stress and Resting SPECT Images: Cardiac Stress and Resting SPECT images were obtained using technetium 99m Myoview 31.1 mCi stress and 10.42 mCi at rest. Gated SPECT for analysis of segmental wall motion and calculation of the ejection fraction also done. Cardiac stress and rest SPECT may show uniform myocardial activity without segmental perfusion abnormality, computer derived ejection fraction is 49% with no regional wall motion abnormality, right ventricle is mildly enlarged with normal contractility. Conclusion: 1. The EKG portion of the exercise Myoview is positive for ischemia, patient has good exercise capacity achieved 10.1 METs of workload on treadmill, the blood pressure response to exercise was adequate, there was no exercise-induced chest discomfort. 2. No scintigraphic evidence of reversible ischemia seen, computer ejection fraction is 49% with no regional wall motion abnormality, right ventricle is mildly enlarged with normal contractility. 3. Equivocal exercise Myoview study. Electronically signed by : Tanner Gupta MD 02/09/2022 19:42:41
--- NOTE | 2022-02-09 12:00 | CA_ITS ---
APPROVED REPORT EXAM: Comprehensive 2D, Doppler, and color-flow Echocardiogram [facility] Dentist: Latoya Purcell CRT Ht: 6 ft 1 in Wt: 196lbs BSA: 2.13 BP: 125/83 mmHg Indications: Chest Pain, Diabetes, Hyperlipidemia, Hypertension/HDD, CAD, CABG 2D Dimensions LVOT 2.20 cm (M/F) 1.5-2.5 M-Mode Dimensions RVDd 3.11 cm (0.9-2.6) LA Diam 4.29 cm (1.9-4.0) LVDd 4.79 cm (3.5-5.7) Ao Diam 4.13 cm (2.0-3.7) LVDs 3.47 cm (3.5-5.7) IVSd 1.21 cm (0.6-1.1) PWd 1.25 cm (0.6-1.1) EF (Teich) 53.50% FS 27.60% EDV (Teich) 107.00 mL ESV (Teich) 49.80 mL LV Diastology E Decel Time 157.00 (160-240 msec) E/A Ratio 0.46 MED E' 3.80 (< 7 cm/sec) MED A' 11.40 cm/s E'/MED E' Ratio 8.47 (>14) LAT E' 5.70 (<10 cm/sec) LAT A' 10.80 cm/s E/LAT E' Ratio 5.65 (>14) Aortic Valve AI PHT 422.00 ms AO Peak GR. 4.90 mmHg Mitral Valve MV E Max Maninder. 32.00 (40-130 cm/s) MV A Velocity 71.00 (40-130 cm/s) E/A Ratio 0.46 MV Decel. Time 157.00 (160-240 ms) MV PHT 46.00 ms Pulmonary Valve PV Peak Velocity 100.00 (50-150 cm/s) Tricuspid Valve TR P. Velocity 232.00 cm/s RAP Estimate 10.00 mmHg RVSP 31.50 mmHg Left Ventricle Left atrium is mildly enlarged, left ventricle normal size, mild concentric left ventricular hypertrophy, visually estimated ejection fraction 55% with no regional wall motion abnormality, grade 1 diastolic dysfunction seen without tissue Doppler evidence of raise left atrial pressure. Right Ventricle Right atrium and right ventricle mildly enlarged with normal contractility. Aortic Valve Aortic valve is minimally thickened and fibrosed, there is no aortic stenosis or aortic insufficiency. Mitral Valve Mitral valve grossly normal, there is trace mitral regurgitation. Tricuspid Valve Tricuspid valve grossly normal, there is trace tricuspid regurgitation, tricuspid regurgitation jet velocity is inadequate for calculation of the right ventricular systolic pressure. Pulmonic Valve Pulmonic valve is poorly visualized. Great Vessels Aortic root is normal size. Inferior vena cava is poorly visualized. Pericardium No significant pericardial effusion noted. Conclusion 1. Mild biatrial enlargement, normal left ventricular size, mild concentric left ventricular hypertrophy, visually estimated ejection fraction 55% with no regional wall motion abnormality, grade 1 diastolic dysfunction seen without tissue Doppler evidence of raise left atrial pressure. 2. Mildly enlarged right ventricle with normal contractility. 3. Trace mitral and tricuspid regurgitation. 4. No significant pericardial effusion noted. 5. Inferior vena cava is poorly visualized. Electronically signed by : Tanner Gupta MD 02/09/2022 20:45:48
== END ==
PROVIDERS: PCP Internal Medicine Adolescent Medicine; Visit Provider Internal Medicine
DX: E78.5 Hyperlipidemia, unspecified (principal); I10 Essential (primary) hypertension; I20.9 Angina pectoris, unspecified; R10.31 Right lower quadrant pain; Z95.1 Presence of aortocoronary bypass graft; Z95.5 Presence of coronary angioplasty implant and graft; R07.9 Chest pain, unspecified
CPT/HCPCS: 78452; 93017; 93306; A9502

== ENCOUNTER → 2022-02-17 12:19 | Outpatient (CLI) | payer MEDICARE, SELFPAY ==
[2022-02-17 13:39] LABS: Basophils % 0.6 % (0.1-2.0); Eosinophils # 0.1 K/mm3 (0.0-0.4); Eosinophils % 2.4 % (0.1-12.0); Hematocrit 49.4 % (42.0-52.0); Hemoglobin 16.5 g/dL (14.1-18.0); Lymphocytes # 1.6 K/mm3 (0.7-4.5); Mean Corpuscular HGB Conc 33.3 g/dL (31.8-35.4); Mean Corpuscular Hemoglobin 31.6 pg (27.0-31.2); Mean Corpuscular Volume 94.9 fl (80-94); Mean Platelet Volume 8.8 fl (7.4-10.4); Monocytes # 0.4 K/mm3 (0.1-1.0); Monocytes % 6.7 % (1.7-9.3); Neutrophils # 3.7 K/mm3 (1.8-7.8); Neutrophils % 63.3 % (37.0-80.0); Platelet Count 185 K/mm3 (142-424); Red Blood Count 5.21 M/mm3 (4.60-6.20); Red Cell Distribution Width 13.5 % (11.5-17.5); White Blood Count 5.8 K/mm3 (4.8-10.8)
[2022-02-17 14:13] LABS: Alanine Aminotransferase 28 U/L (12-78); Albumin Level 4.3 g/dl (3.5-5.0); Albumin/Globulin Ratio 1.7 (1.1-1.8); Alkaline Phosphatase 61 U/L (38-126); Anion Gap 9.6 mEq/L (5-15); Aspartate Amino Transferase 37 U/L (17-59); Blood Urea Nitrogen 20 mg/dl (9-20); Calcium 9.2 mg/dl (8.4-10.2); Carbon Dioxide 27 mmol/L (22.0-30.0); Chloride 106 mmol/L (98-107); Estimated Glomerular Filt Rate 84 ml/min (>60); GFR (African American) 102 ML/MIN (>60); Globulin 2.5 g/dL (1.3-3.2); Glucose 132 mg/dl (74-100); Lipase 72 U/L (23-300); Potassium 4.6 mmoL/L (3.5-5.1); Sodium 138 mmol/L (136-145); Total Protein,Serum 6.8 g/dl (6.3-8.2)
[2022-02-17 17:00] LABS: Erythrocyte Sedimentation Rate 5 mm/hr (0-20)
== END ==
PROVIDERS: Visit Provider Internal Medicine Adolescent Medicine
DX: R07.82 Intercostal pain (principal); R10.12 Left upper quadrant pain; I10 Essential (primary) hypertension; E11.9 Type 2 diabetes mellitus without complications; Z79.84 Long term (current) use of oral hypoglycemic drugs
CPT/HCPCS: 36415; 80053; 83690; 85025; 85651; 86140

== ENCOUNTER → 2022-02-25 10:04 | Outpatient (CLI) | payer MEDICARE, SELFPAY ==
--- NOTE | 2022-02-25 10:05 | NM_ITS ---
FINAL REPORT CLINICAL HISTORY: gallbladder sludge FINDINGS: Sequential anterior projection images of the abdomen were obtained after the intravenous injection of 7.93 mCi technetium 99m Choletec. There is normal uptake of radiotracer by the liver. The bile ducts are visualized by 15 minutes. Gallbladder activity is seen by 15 minutes. Bowel activity is noted by 25 minutes. After 1 hour, 1.0 ?g of CCK was injected intravenously for calculation of gallbladder ejection fraction. The gallbladder ejection fraction is 30 %, which is abnormal. IMPRESSION: Normal gallbladder ejection fraction of 30 %. Reviewed, Interpreted and Dictated by Raúl Garcia III, MD Transcribed by Helena Huertas Authenticated by Raúl Garcia III, MD on 02/25/2022 02:54:53 PM [facility]
--- NOTE | 2022-02-25 13:00 | CT_ITS ---
FINAL REPORT CLINICAL HISTORY: INTERCOSTAL PAIN, ANTERIOR CHEST PAIN FINDINGS: Axial CT images of the chest were obtained with contrast. Coronal reformatted images were also obtained. This study was performed with techniques to keep radiation doses as low as reasonably achievable, (ALARA). Individualized dose reduction techniques using automated exposure control or adjustment of mA and/or KV according to the patient''''s size were employed. Patient is status post median sternotomy. Aorta appears unremarkable. There is no evidence of mediastinal or hilar mass or adenopathy.No axillary mass or adenopathy is identified. On lung window images, no pulmonary mass or dominant pulmonary nodule is identified. No localized pulmonary inflammatory process is identified. Limited images of the upper abdomen reveal no mass or localized inflammatory process. IMPRESSION: No mass or localized inflammatory process. Reviewed, Interpreted and Dictated by Raúl Garcia III, MD Transcribed by Helena Huertas Authenticated by Raúl Garcia III, MD on 02/25/2022 04:03:33 PM [facility]
== END ==
PROVIDERS: PCP Internal Medicine Adolescent Medicine; Visit Provider Internal Medicine
DX: K82.8 Other specified diseases of gallbladder (principal); R11.0 Nausea
CPT/HCPCS: 71260; 78227; A9537; Q9967

== ENCOUNTER → 2022-03-05 12:07 | Outpatient (CLI) | payer MEDICARE, SELFPAY | PROVIDERS: PCP Internal Medicine Adolescent Medicine; Visit Provider Surgery | DX: Z01.812 Encounter for preprocedural laboratory examination (principal); Z11.52 Encounter for screening for COVID-19; Z13.810 Encounter for screening for upper gastrointestinal disorder | CPT/HCPCS: C9803; U0003; U0005 ==

== ENCOUNTER 2022-03-08 09:28 | Day surgery (SDC) | payer MEDICARE, SELFPAY ==
[2022-03-07 10:56] VITALS: BMI 25.4
[2022-03-08] VITALS (7 sets, daily range): BP systolic 99–123; BP diastolic 65–87; PULSE 65–70; RESP 16; TEMP 36.1–36.3; O2SAT 94–99
--- NOTE | 2022-03-08 10:24 | HMH.SCOPE ---
- Procedure: Date: 03/08/22 Patient Date of :: 1955 Procedure Performed:: Esophagogastroduodenoscopy with biopsy Indications:: Epigastric pain Nausea Performing Provider:: Yordy Carreno MD Referring Provider:: . Sedation:: Monitored anesthesia care Procedure:: After informed consent was obtained the patient was taken to the endoscopy suite. Sedation ensued after the patient was transferred to the left lateral decubitus position. Pulse, blood pressure, and oxygen saturation were monitored throughout the procedure. The endoscope was advanced beyond the duodenal bulb. Retroflexion within the gastric lumen was accomplished. The gastroscope was carefully removed and the patient was transferred to recovery in stable condition. Please see findings and specimens below for detail. Findings:: Gastroesophageal junction at 40 cm Small sliding hiatal hernia Minimal gastritis Specimens:: Antral biopsy Recommendations:: Follow-up pathology Discussion with regard to possible biliary disease will be ongoing Complications:: No immediate Estimated blood obtained (mL): 1
--- NOTE | 2022-03-08 10:28 | HMH.ANESCL ---
[facility] Anesthesia Checklist - Structural Data Admitted From: Home Planned Operative Procedure/s: egd Consent for Planned Operative Procedure(s) Verified: Yes - Airway Assessment C-Spine Mobility Assessed: Yes TMJ Mobility Assessed: Yes Dentition: Good Dentition - Neurological Assessment Level of Consciousness: Awake, Alert, Appropriate - Anesthesia Plan Anesthesia Risk discussed: Yes Anesthesia Plan: Verified ASA Class: III Anesthesia Type: MAC [facility] History I have reviewed the patient's past medical history: Yes Medical History: Reports:: Cancer (skin), Coronary Artery Disease, Diabetes Mellitus Type 2, Hyperlipidemia, Hypertension Denies:: Diabetes Mellitus Type 1, Internal Pacemaker, MRSA, Seizures *Have you ever received a pneumonia vaccine?: Yes *Have you received a flu vaccine this season?: Yes Other Medical History: Reports: Arthritis, Cataracts Anesthesia experience/problems:: none Laterality Cases: Right: Arthroscopy Hip, Arthroscopy Knee, Bilateral: Arthroscopy Shoulder, Cataract, Tonsillectomy Other Surgeries: Yes: CABG, Cardiac Catheterization, Cardiac Surgery, Colonoscopy, Coronary Stent, Other. No: Pacemaker Amputation: No Fractures: No - *Social History Last grade of school completed: Advanced degree Smoking Status: Never smoker Alcohol Intake: current Alcohol Intake Frequency:: a few times a month Substance Use Type: denies use *Occupational Status:: employed Housing: house Household Members: spouse *Travel in the last 8 weeks: None Family Hx:: Cancer, Diabetes, Heart Attack, Hyperlipidemia
[2022-08-18 10:59] LABS: POC Glucose,Bedside 157 (70-110)
== END 2022-03-08 11:10 | disposition home or self-care (01) ==
LOC: OUTP 09:29
PROVIDERS: PCP Internal Medicine Adolescent Medicine; Visit Provider Surgery
PROC: 0DJ08ZZ Inspection of Upper Intestinal Tract, Via Natural or Artificial Opening Endoscopic (ICD-10-PCS; CPT 43235; principal; 2022-03-08 10:30)
DX: K29.70 Gastritis, unspecified, without bleeding (principal); K44.9 Diaphragmatic hernia without obstruction or gangrene; I25.10 Atherosclerotic heart disease of native coronary artery without angina pectoris; E11.9 Type 2 diabetes mellitus without complications; E78.5 Hyperlipidemia, unspecified; I10 Essential (primary) hypertension; M19.90 Unspecified osteoarthritis, unspecified site; Z85.828 Personal history of other malignant neoplasm of skin; Z80.9 Family history of malignant neoplasm, unspecified; Z83.3 Family history of diabetes mellitus; Z83.438 Family history of other disorder of lipoprotein metabolism and other lipidemia; Z82.3 Family history of stroke
CPT/HCPCS: 43235; 82962; 88305

== ENCOUNTER → 2022-03-29 08:06 | Outpatient (POV) | payer MEDICARE, SELFPAY | PROVIDERS: Visit Provider Dermatology | DX: Z00.00 Encounter for general adult medical examination without abnormal findings (principal) ==

== ENCOUNTER 2022-07-05 09:51 | Emergency (ER) | payer MEDICARE, SELFPAY ==
[2022-07-05 11:15] VITALS: BP 120/72; PULSE 65; RESP 17; TEMP 36.8; O2SAT 97; BMI 24.6
--- NOTE | 2022-07-05 11:20 | XR_ITS ---
FINAL REPORT CLINICAL HISTORY: FELL THROUGH OF DECK FINDINGS: Left foot Three views were obtained. Mild degenerative changes are present. There is fragmentation of the lateral sesamoid of the great toe. It is uncertain if this represents a normal variant, sesamoid fracture is not entirely excluded. No soft tissue abnormality is identified. IMPRESSION: Fragmentation of the lateral sesamoid of the great toe as detailed above. Reviewed, Interpreted and Dictated by Raúl Garcia III, MD Transcribed by Lore Davies Authenticated and [facility]
--- NOTE | 2022-07-05 11:33 | HMH.EDUTC ---
[facility] Disposition Clinical Impression: Fracture of sesamoid bone Disposition: Home, Self-Care Condition on Discharge: Good Instructions: How To Perform RICE (Rest, Ice, Compress, Elevate), How to Use a Walking Boot Additional Instructions: *weight bearing as tolerated *RICE, Rest the extremity, Ice 15-20 minutes 3-4 times daily, Compress- wear the rafia wrap as discussed as much as possible to help reduce swelling and pain, Elevate the extremity when at rest *Walking boot is for support and help control swelling, use it except in the shower. Be sure that is not to tight but not to loose either *Elevate when resting *Ibuprofen 600-800mg every 6-8 hours as needed for pain an inflammation if your doctor has told you that you can take it. If need something more can take Tylenol in between doses of Ibuprofen to help Immediately follow up with your family doctor for new or worsening of symptoms, or no noticeable improvement over the next 3-5 days Referrals: Hal Vela MD [Primary Care Provider] - As needed Jerry Bailey MD [Staff Physician] - As needed (Call office for appointment) Time of Disposition: 13:17 Medical Decision Making - Eugenio Inquiry Pt receiving controlled substance: No Eugenio was queried for this patient: No Vital Signs: 07/05/22 11:15 07/05/22 13:15 Temperature 98.3 F 98.3 F Temperature Source Oral Pulse Rate 65 Pulse Rate [Right Brachial] 65 Respiratory Rate 17 17 Blood Pressure 120/72 Blood Pressure [Right Arm] 120/72 Blood Pressure Mean [Right Arm] 88 Blood Pressure Source [Right Arm] Automatic Cuff Blood Pressure Position [Right Arm] Sitting 02 Sat by Pulse Oximetry 97 Oxygen Delivery Method Room Air - Radiology Data #1 Image(s): Foot/Toes Image Reviewed: Yes I have reviewed radiologist's interpretation IMPRESSION: Fragmentation of the lateral sesamoid of the great toe as detailed above. [facility] HPI - General Stated complaint: AO fall 07/04/22 rt foot pain Time Seen by Provider: 07/05/22 11:33 Mode of Arrival: Ambulatory Source of Information: Patient Limitations: No Limitations Description of Symptoms (Recalled from Triage Doc. by RN): PATIENT C/O LEFT FOOT PAIN AFTER FALLING WHILE WORKING ON DECK AND INJURED IT YESTERDAY HEENT Symptoms (Recalled from RN notes): No Resp Symptoms (Recalled from RN notes): No Skin Symptoms (Recalled from RN notes): No MS Symptoms (Recalled from RN notes): Yes Functional Status (Recalled from RN notes): WNL - History of Present Illness Provider Complaint: Patient states that he was working on [employer] yesterday when he fell through it and hurt his left foot around his great toe area States that he has been walking on it ok but bruising and swelling was worse today so he came in to get it checked out - Related Data Home Medications Medication Instructions Recorded Confirmed acetaminophen 325 mg tablet 325 mg PO BID PRN tab 06/09/20 05/18/22 Famotidine [Pepcid 20mg Tablet] 20 mg PO BID 07/16/21 05/18/22 Evolocumab [Repatha Sureclick] 140 mg SQ MONTHLY 03/07/22 05/18/22 dulaglutide 1.5 mg/0.5 mL 1.5 mg SQ WEEKLY ml 05/18/22 05/18/22 subcutaneous pen injector Previous Rx's Medication Instructions Recorded nitroglycerin 0.4 mg sublingual 0.4 mg SUBLINGUAL Q5-15M PRN #25 05/19/21 tablet tab Meclizine HCl 25 mg PO TIDP PRN #45 tab 05/30/21 aspirin 81 mg tablet,delayed 81 mg PO DAILY #100 tab 03/08/22 release metoprolol tartrate 25 mg tablet 12.5 mg PO BID #60 tab 03/08/22 clopidogrel 75 mg tablet See Rx Instructions .ROUTE 06/23/22 .COMPLEX #30 tablet Allergies Allergy/AdvReac Type Severity Reaction Status Date / Time lisinopril Allergy Severe cough Verified 05/18/22 11:51 adhesive tape [ADHESIVE TAPE] Allergy Unknown Unknown Verified 05/18/22 11:51 allergy reaction metformin [METFORMIN] Allergy Unknown Unknown Verified 05/18/22 11:51 allergy reaction rosuvastatin [From Crestor] AdvReac Renetta
[2022-07-05 13:15] VITALS: BP 120/72; PULSE 65; RESP 17; TEMP 36.8; O2SAT 97
== END 2022-07-05 13:25 | disposition home or self-care (01) ==
PROVIDERS: Emergency Provider Nurse Practitioner; PCP Internal Medicine Adolescent Medicine
DX: S92.811A Other fracture of right foot, initial encounter for closed fracture; Z79.899 Other long term (current) drug therapy; Z88.8 Allergy status to other drugs, medicaments and biological substances
CPT/HCPCS: 73630; 99212; G0463

== ENCOUNTER 2022-07-08 15:11 | Outpatient (RCR) | payer MEDICARE, SELFPAY | END 2022-07-08 16:00 | disposition home or self-care (01) | LOC: PT 15:11 | PROVIDERS: Visit Provider Orthopaedic Surgery | DX: S92.812D Other fracture of left foot, subsequent encounter for fracture with routine healing (principal) | CPT/HCPCS: 97760 ==

== ENCOUNTER → 2022-08-26 12:22 | Outpatient (CLI) | payer MEDICARE, SELFPAY ==
--- NOTE | 2022-08-26 12:26 | XR_ITS ---
FINAL REPORT CLINICAL HISTORY: foot fracture COMPARISON: July 05, 2022 FINDINGS: 3 views of the left foot were obtained. There are mild degenerative changes at the 1st MTP joint. Again seen is fragmentation of the lateral sesamoid of the great toe. Bony alignment is unchanged. IMPRESSION: Fragmentation of the lateral sesamoid of the great toe unchanged and alignment. Reviewed, Interpreted and Dictated by Raúl Garcia III, MD Transcribed by Thong Davis Authenticated and [facility]
== END ==
PROVIDERS: PCP Internal Medicine Adolescent Medicine; Visit Provider Orthopaedic Surgery
DX: M79.672 Pain in left foot (principal); S92.812A Other fracture of left foot, initial encounter for closed fracture
CPT/HCPCS: 73630

== ENCOUNTER → 2022-11-29 10:10 | Outpatient (CLI) | payer MEDICARE, SELFPAY ==
[2022-11-29 11:05] LABS: Basophils % 0.6 % (0.1-2.0); Eosinophils # 0.1 K/mm3 (0.0-0.4); Eosinophils % 2.3 % (0.1-12.0); Hemoglobin 16.7 g/dL (14.1-18.0); Lymphocytes # 1.4 K/mm3 (0.7-4.5); Lymphocytes % 26.2 % (10-50); Mean Corpuscular HGB Conc 31.5 g/dL (31.8-35.4); Mean Corpuscular Hemoglobin 30.5 pg (27.0-31.2); Mean Corpuscular Volume 96.6 fl (80-94); Mean Platelet Volume 8.1 fl (7.4-10.4); Monocytes # 0.3 K/mm3 (0.1-1.0); Monocytes % 5.7 % (1.7-9.3); Neutrophils # 3.4 K/mm3 (1.8-7.8); Neutrophils % 65.2 % (37.0-80.0); Platelet Count 172 K/mm3 (142-424); Red Blood Count 5.49 M/mm3 (4.60-6.20); Red Cell Distribution Width 13.1 % (11.5-17.5); White Blood Count 5.2 K/mm3 (4.8-10.8)
[2022-11-29 12:10] LABS: Alanine Aminotransferase 27 U/L (12-78); Albumin Level 4.4 g/dl (3.5-5.0); Albumin/Globulin Ratio 1.6 (1.1-1.8); Alkaline Phosphatase 67 U/L (38-126); Aspartate Amino Transferase 28 U/L (17-59); Bilirubin,Total 1.1 mg/dl (0.2-1.3); Blood Urea Nitrogen 21 mg/dl (9-20); Calcium 9.1 mg/dl (8.4-10.2); Carbon Dioxide 26 mmol/L (22.0-30.0); Chloride 106 mmol/L (98-107); Chol/HDL Ratio 4.3 (1-3.5); Cholesterol 205 mg/dl (140-200); Estimated Glomerular Filt Rate 84 ml/min (>60); GFR (African American) 102 ML/MIN (>60); Globulin 2.7 g/dL (1.3-3.2); Glucose 162 mg/dl (74-100); HDL Cholesterol 48 mg/dl (40-60); Sodium 140 mmol/L (136-145); Total Protein,Serum 7.1 g/dl (6.3-8.2); Triglycerides 69 mg/dl (30-150); VLDL Cholesterol 14 mg/dL (0-40)
[2022-11-29 12:11] LABS: Alanine Aminotransferase 27 U/L (12-78); Albumin Level 4.4 g/dl (3.5-5.0); Alkaline Phosphatase 67 U/L (38-126); Aspartate Amino Transferase 29 U/L (17-59); Bilirubin,Direct 0.1 mg/dl (0.0-0.4); Bilirubin,Indirect 0.9 mg/dL (0.0-0.9); Magnesium 1.8 mg/dl (1.6-2.3); Total Protein,Serum 7.2 g/dl (6.3-8.2)
[2022-11-29 12:21] LABS: Direct LDL Cholesterol 130.43 mg/dL (100-129)
[2022-11-29 12:28] LABS: Free T4 (Free Thyroxine) 0.91 ng/dl (0.78-2.19)
[2022-11-29 12:41] LABS: Thyroid Stimulating Hormone 0.89 uIU/mL (0.465-4.68)
== END ==
PROVIDERS: PCP Internal Medicine Adolescent Medicine; Visit Provider Internal Medicine
DX: E78.2 Mixed hyperlipidemia (principal); I10 Essential (primary) hypertension; I25.10 Atherosclerotic heart disease of native coronary artery without angina pectoris; Z95.1 Presence of aortocoronary bypass graft; Z95.5 Presence of coronary angioplasty implant and graft; E11.9 Type 2 diabetes mellitus without complications
CPT/HCPCS: 36415; 80053; 80061; 80076; 83735; 84439; 84443; 85025

== ENCOUNTER → 2022-12-12 13:15 | Outpatient (CLI) | payer MEDICARE, SELFPAY ==
[2022-12-12 15:33] LABS: Hemoglobin A1C 7.8 % (4.0-6.0)
[2022-12-12 16:09] LABS: Prostate Specific Ag Screen 5.3 ng/ml (0.0-4.0)
== END ==
PROVIDERS: PCP Internal Medicine Adolescent Medicine; Visit Provider Internal Medicine Adolescent Medicine
DX: Z00.00 Encounter for general adult medical examination without abnormal findings (principal); E11.9 Type 2 diabetes mellitus without complications; Z79.84 Long term (current) use of oral hypoglycemic drugs; Z12.5 Encounter for screening for malignant neoplasm of prostate
CPT/HCPCS: 36415; 83036; G0103

== ENCOUNTER → 2022-12-26 09:55 | Outpatient (CLI) | payer MEDICARE, SELFPAY ==
--- NOTE | 2022-12-26 09:59 | CT_ITS ---
FINAL REPORT TECHNIQUE: Axial images were obtained through the chest without contrast. CLINICAL HISTORY: CHEST PAIN,DYSPNEA, open heart sx 2.5 years ago, pain since COMPARISON: 02/25/2022 FINDINGS: CT CHEST WITHOUT CONTRAST There are multiple sternotomy wires. The lungs are clear. The heart size is normal. There are densely calcified coronary arteries. There is no pericardial or pleural effusion. Limited images of the upper abdomen demonstrate calcified granulomas in the liver and spleen. The gallbladder is present. There are small nonobstructing stones in both kidneys. There is a 4.8 cm benign-appearing cyst in the left kidney. The pancreas and adrenals appear unremarkable. No suspicious infiltrate or nodule identified. IMPRESSION: No acute process. Small, nonobstructing bilateral renal stones. Reviewed, Interpreted and Dictated by Elver Pena MD Transcribed by Taylor Russ Authenticated and [facility]
== END ==
PROVIDERS: PCP Internal Medicine Adolescent Medicine; Visit Provider Internal Medicine Adolescent Medicine
DX: R06.09 Other forms of dyspnea (principal); R07.89 Other chest pain
CPT/HCPCS: 71250

== ENCOUNTER → 2023-03-07 08:46 | Outpatient (POV) | payer MEDICARE, SELFPAY | PROVIDERS: Visit Provider Dermatology | DX: Z00.00 Encounter for general adult medical examination without abnormal findings (principal) ==

== ENCOUNTER 2023-10-29 11:45 | Emergency (ER) | payer MEDICARE, SELFPAY ==
[2023-10-29 12:25] VITALS: BP 128/81; PULSE 71; RESP 17; TEMP 36.8; O2SAT 98; BMI 26.8
[2023-10-29 12:36] LABS: UTC Strep Screen (Rapid) Negative (Negative)
--- NOTE | 2023-10-29 12:43 | EXP.UTC ---
Discharge Plan Disposition Patient Disposition: Home, Self-Care Condition: Good Prescriptions Prescriptions: New amoxicillin 500 mg capsule 500 mg PO BID 10 Days Qty: 20 0RF No Action acetaminophen [Tylenol] 325 mg tablet 325 mg PO BID PRN (Reason: pain) metoprolol tartrate 25 mg tablet 12.5 mg PO BID Qty: 120 3RF aspirin 81 mg tablet,delayed release (DR/EC) 81 mg PO DAILY Qty: 100 3RF clopidogrel 75 mg tablet 75 mg PO DAILY Qty: 90 3RF famotidine 20 mg tablet 20 mg PO BID Qty: 180 3RF semaglutide 0.25 mg or 0.5 mg(2 mg/1.5 mL) pen injector 0.5 mg SQ WEEKLY cholecalciferol (vitamin D3) 25 mcg (1,000 unit) capsule 25 mcg PO DAILY tadalafil [Cialis] 5 mg tablet 5 mg PO DAILY Qty: 30 3RF nitroglycerin 0.4 mg tablet, sublingual 0.4 mg SUBLINGUAL Q5-15M PRN (Reason: chest pain) Qty: 25 0RF Rx Instructions: do not exceed 3 doses per episode evolocumab 140 mg/mL pen injector 140 mg SQ Q2W 90 Days Qty: 7 6RF meclizine 25 MG tablet 25 mg PO TIDP PRN (Reason: Dizziness) Qty: 45 0RF Rx Instructions: Dizziness or vertigo Referrals Follow up/Referrals: Gildardo Grajeda MD [Primary Care Provider] - See instructions Activity Restrictions/Add. Instructions Additional Instructions/Restrictions: *Monitor Temp, Over the counter Motrin or Tylenol as directed/as needed Tylenol every 4 hours and Motrin every 6 hours (as long as your family doctor has told you that you can take it) for fever or pain. and straight to ER if unable to lower temp less than 101.0 after medication given *Warm salt water gargles may help to soothe the throat *Throat Lozenges? *Warm fluids like tea with honey may help to soothe the throat? *Sleep elevated *Humidifier/Vaporizer Your throat swab was sent for culture. Those results are typically sent to your primary care. Be sure to follow up in 2-3 days with your family doctor/primary care physician if no improvement so they can review those result and treat if necessary. If you don?t have a primary care doctor, I recommend you get one but in the mean time, you will have to return to a walk in clinic Follow up IMMEDIATELY for new or worsening symptoms or no Noticeable improvement over the next 48-72 hours. 911 for difficulty breathing or swallowing Clinical Impressions Clinical Impression: Pharyngitis Qualifiers: Pharyngitis/tonsillitis etiology: unspecified etiology Qualified Code(s): J02.9 - Acute pharyngitis, unspecified Instructions Patient Instructions: Sore Throat, Amoxicillin Discharge ED Provider: Valarie Niño [facility] General Stated complaint: st, congestion Mode of Arrival: Ambulatory Source of Information: Patient Limitations: No Limitations Time Seen by Provider: 10/29/23 12:43 Description of Symptoms (Recalled from Triage Doc. by RN): PATIENT C/O SORE THROAT SINCE YESTERDAY HEENT Symptoms (Recalled from RN notes): Yes Resp Symptoms (Recalled from RN notes): No Skin Symptoms (Recalled from RN notes): No MS Symptoms (Recalled from RN notes): No Functional Status (Recalled from RN notes): WNL History of Present Illness Provider Complaint: Patient states that he has been having severe sore throat since yesterday and feels like he may have strep throat States that today his throat was worse and hurting when he would swallow so he came in to get it checked Related Data Home Medications Medication Instructions Recorded Confirmed acetaminophen 325 mg tablet 325 mg PO BID PRN pain 06/09/20 05/17/23 (Tylenol) cholecalciferol (vitamin D3) 25 25 mcg PO DAILY 05/17/23 05/17/23 mcg (1,000 unit) capsule semaglutide 0.25 mg or 0.5 mg (2 0.5 mg SQ WEEKLY 05/17/23 05/17/23 mg/1.5 mL) subcutaneous pen injector Previous Rx's Medication Instructions Recorded nitroglycerin 0.4 mg sublingual 0.4 mg sublingual Q5-15M PRN chest 05/19/21 tablet pain #25 tabs mecli
[2023-10-29 12:54] VITALS: BP 128/81; PULSE 71; RESP 17; TEMP 36.8; O2SAT 98
== END 2023-10-29 12:56 | disposition home or self-care (01) ==
PROVIDERS: Emergency Provider Nurse Practitioner; PCP Internal Medicine Adolescent Medicine
DX: J02.9 Acute pharyngitis, unspecified (principal); R05.9 Cough, unspecified; E11.9 Type 2 diabetes mellitus without complications; E78.5 Hyperlipidemia, unspecified; I10 Essential (primary) hypertension; I20.9 Angina pectoris, unspecified; Z79.85 Long-term (current) use of injectable non-insulin antidiabetic drugs
CPT/HCPCS: 87880; 99212; 99214; G0463

== ENCOUNTER 2023-11-27 13:42 | Outpatient (CLI) | payer MEDICARE, SELFPAY ==
--- NOTE | 2023-11-27 13:53 | XR_ITS ---
FINAL REPORT CLINICAL HISTORY: Acute left foot pain COMPARISON: 08/26/2022 FINDINGS: LEFT FOOT Three views of the left foot demonstrate no acute fracture or dislocation. There is mild narrowing and osteophytes involving the first MTP joint consistent with degenerative change. The soft tissues are unremarkable. IMPRESSION: Degenerative change without acute bony abnormality. Reviewed, Interpreted and Dictated by Alba Perry MD Transcribed by ROBERTA Rodriguez Authenticated and [facility]
== END 2023-11-27 23:59 ==
LOC: RAD 13:45
PROVIDERS: PCP Internal Medicine Adolescent Medicine; Visit Provider Orthopaedic Surgery
DX: S92.812A Other fracture of left foot, initial encounter for closed fracture (principal); W20.8XXA Other cause of strike by thrown, projected or falling object, initial encounter
CPT/HCPCS: 73630

== ENCOUNTER 2024-01-15 11:50 | Outpatient (CLI) | payer MEDICARE, SELFPAY ==
--- NOTE | 2024-01-15 12:02 | XR_ITS ---
FINAL REPORT CLINICAL HISTORY: angina..chest pain x 10 days COMPARISON: 12/26/2022 FINDINGS: 2 views of the chest were obtained . Patient is status post median sternotomy. The heart is normal in size. The mediastinum is within normal limits. The lungs are clear. There is no pneumothorax. Osseous structures are unremarkable. IMPRESSION: No acute cardiopulmonary process. Reviewed, Interpreted and Dictated by Veronique Cr MD Transcribed by Helena Huertas Authenticated and [facility]
[2024-01-15 12:22] LABS: Alanine Aminotransferase 31 U/L (12-78); Albumin Level 4.4 g/dl (3.5-5.0); Alkaline Phosphatase 61 U/L (38-126); Anion Gap 7.7 mEq/L (5-15); Aspartate Amino Transferase 37 U/L (17-59); Bilirubin,Direct 0.1 mg/dl (0.0-0.4); Bilirubin,Indirect 0.6 mg/dL (0.0-0.9); Bilirubin,Total 0.7 mg/dl (0.2-1.3); Bilirubin,Unconjugated 0.6 mg/dL (0.0-1.1); Blood Urea Nitrogen 20 mg/dl (9-20); Calcium 9.9 mg/dl (8.4-10.2); Carbon Dioxide 31 mmol/L (22.0-30.0); Chloride 106 mmol/L (98-107); Chol/HDL Ratio 4.9 (1-3.5); Cholesterol 212 mg/dl (140-200); Estimated Glomerular Filt Rate 74 ml/min (>60); GFR (African American) 90 ML/MIN (>60); Glucose 175 mg/dl (74-100); HDL Cholesterol 43 mg/dl (40-60); Potassium 4.7 mmoL/L (3.5-5.1); Sodium 140 mmol/L (136-145); Total Protein,Serum 7.5 g/dl (6.3-8.2); Triglycerides 96 mg/dl (30-150); VLDL Cholesterol 19 mg/dL (0-40)
[2024-01-15 12:33] LABS: Direct LDL Cholesterol 122.38 mg/dL (100-129)
[2024-01-15 12:35] LABS: Troponin I < 0.01 ng/ml (0.00-0.034)
[2024-01-15 12:40] LABS: Basophils % 0.3 % (0.1-2.0); Eosinophils # 0.1 K/mm3 (0.0-0.4); Eosinophils % 2.3 % (0.1-12.0); Hemoglobin 16.7 g/dL (14.1-18.0); Lymphocytes # 1.3 K/mm3 (0.7-4.5); Lymphocytes % 24.2 % (10-50); Mean Corpuscular HGB Conc 32.6 g/dL (31.8-35.4); Mean Platelet Volume 8.6 fl (7.4-10.4); Monocytes # 0.4 K/mm3 (0.1-1.0); Monocytes % 7.4 % (1.7-9.3); Neutrophils # 3.5 K/mm3 (1.8-7.8); Neutrophils % 65.7 % (37.0-80.0); Platelet Count 175 K/mm3 (142-424); Red Cell Distribution Width 13.2 % (11.5-17.5); White Blood Count 5.4 K/mm3 (4.8-10.8)
[2024-01-15 12:46] LABS: Free T4 (Free Thyroxine) 0.91 ng/dl (0.78-2.19)
[2024-01-15 12:53] LABS: Thyroid Stimulating Hormone 0.56 uIU/mL (0.465-4.68)
== END 2024-01-15 23:59 ==
LOC: LAB 11:51
PROVIDERS: PCP Internal Medicine Adolescent Medicine; Visit Provider Internal Medicine
DX: E78.5 Hyperlipidemia, unspecified (principal); I10 Essential (primary) hypertension; N52.2 Drug-induced erectile dysfunction; Z95.1 Presence of aortocoronary bypass graft; Z95.5 Presence of coronary angioplasty implant and graft; I25.118 Atherosclerotic heart disease of native coronary artery with other forms of angina pectoris; Z79.899 Other long term (current) drug therapy; R06.09 Other forms of dyspnea
CPT/HCPCS: 36415; 71046; 80048; 80061; 80076; 83735; 84439; 84443; 84484; 85025

== ENCOUNTER 2024-01-18 08:48 | Day surgery (SDC) | payer MEDICARE, SELFPAY ==
[2024-01-18] VITALS (16 sets, daily range): BP systolic 107–145; BP diastolic 65–89; PULSE 62–83; RESP 17–20; TEMP 36.8; O2SAT 97–99; BMI 24.9
--- NOTE | 2024-01-18 07:35 | IR_ITS ---
APPROVED REPORT Patient Location: Outpatient Die Drawing Checker: KENY Resendiz RT (R) PROCEDURES Left heart catheterization Left ventriculogram Selective coronary angiogram Selective engagement of the saphenous vein graft to the circumflex artery FFR angiogram to the right coronary artery Drug-eluting stent deployment to the mid to distal dominant right coronary Drug-eluting stent deployment to the ostial proximal posterior descending artery FFR angiogram to the mid LAD Drug-eluting stent deployment to the mid LAD INDICATION Coronary artery disease, History of coronary bypass surgery, Accelerated angina pectoris Informed consent was obtained prior to the procedure. COMPLICATIONS NONE Estimated Blood Loss: LESS THAN 10 ML TECHNIQUE One percent lidocaine used to anesthetize the right anterior aspect of the wrist. The right radial artery was accessed via the Seldinger technique. A 6 Khmer sheath was placed in the right radial artery. 2.5 mg of Verapamil, 800 mcg of nitroglycerin, 1mg Lidocaine and 5000 U Heparin were given through the arterial sheath. The papa catheter was also used to perform left heart catheterization, left ventriculogram and selective coronary angiogram. At the end of the diagnostic angiogram therapeutic heparin was administered giving a therapeutic ACT. An FFR angiogram of the right coronary artery was performed which demonstrated an FFR index of 0.78 therefore a 4 mm x 38 mm [place] frontier stent was deployed at 16 [place] reducing the hemodynamically and angiographically severe stenosis to 0%. Following this a 2.5 x 18 mm [place] frontier stent was deployed at 18 [place] reducing the severe stenosis to 0%. DIAMANTE-3 flow was present down both the right coronary artery and posterior descending artery before and after the procedure. Following this FFR angiography was performed in the mid LAD which produced an FFR index of 0.73. As a result a 3 mm x 26 mm [place] frontier stent was deployed at 18 [place] reducing the hemodynamic angiographically severe stenosis to 0%. DAIMANTE-3 flow was present before and after the procedure. At the end the procedure the apparatus was removed the sheath was removed good hemostasis was achieved using TR banding patient was transferred to the postop putting in stable condition ANGIOGRAPHIC RESULTS The left main artery Has a stent in the ostial segment which is widely patent free of in-stent restenosis with excellent distal transitioning into the LAD The left anterior descending artery Has a stent originating off the left main artery which is widely patent. There is excellent distal transitioning. The mid LAD then has a long concentric 80% stenosis. First diagonal artery is small to moderate and has a proximal 70% stenosis. The circumflex artery Is nondominant and receives competitive flow from the first obtuse marginal artery. There is no significant stenoses in the circumflex artery The right coronary artery Is large and dominant and has an ostial 30% stenosis followed by mid vessel 80% stenosis followed by an additional 30 to 40% stenosis. The posterior descending artery is moderate and has an ostial proximal 90% stenosis The TATE ventriculogram reveals Normal 65% The left ventricular end-diastolic pressure 10 mmHg Saphenous vein graft patent to first obtuse marginal artery/ramus intermedius IMPRESSION Severe disease in the mid dominant right coronary artery with successful stenting reducing the hemodynamically severe stenosis producing an FFR index of 0.78 to 0% with 1 drug-eluting stent Severe disease in the proximal large posterior descending artery with successful stenting reducing the severe disease to 0% with 1 drug-eluting stent Severe disease in the mid LAD producing an FFR index of 0.73 with successful stenting reducing the stenosis to 0% with 1 drug-eluting stent Patent saphenous vein graft to a first obtuse marginal artery/ramus intermedius Normal ejection fraction Normal LVEDP Widely patent left main stenting extending into the proximal LAD with wide patency PLAN 1. Dual antiplatelet therapy 2. Cardiac rehabilitation 3. Avoidance of tobacco products 4. Risk factor modification Electronically signed by : Kike Oshea MD 01/18/2024 12:10:42
[2024-01-18 09:21] LABS: Basophils # 0.1 K/mm3 (0-0.2); Basophils % 1.6 % (0.1-2.0); Eosinophils # 0.2 K/mm3 (0.0-0.4); Eosinophils % 2.8 % (0.1-12.0); Hematocrit 51.3 % (42.0-52.0); Hemoglobin 16.8 g/dL (14.1-18.0); Lymphocytes # 1.8 K/mm3 (0.7-4.5); Lymphocytes % 32.2 % (10-50); Mean Corpuscular HGB Conc 32.7 g/dL (31.8-35.4); Mean Corpuscular Hemoglobin 32.3 pg (27.0-31.2); Mean Corpuscular Volume 98.8 fl (80-94); Mean Platelet Volume 8.4 fl (7.4-10.4); Monocytes # 0.5 K/mm3 (0.1-1.0); Monocytes % 7.8 % (1.7-9.3); Neutrophils # 3.2 K/mm3 (1.8-7.8); Neutrophils % 55.6 % (37.0-80.0); Platelet Count 191 K/mm3 (142-424); Red Blood Count 5.19 M/mm3 (4.60-6.20); Red Cell Distribution Width 13.3 % (11.5-17.5); White Blood Count 5.7 K/mm3 (4.8-10.8)
[2024-01-18 09:28] LABS: Chloride 108 mmol/L (98-107)
[2024-01-18 09:29] LABS: Potassium 4.6 mmoL/L (3.5-5.1); Sodium 140 mmol/L (136-145)
[2024-01-18 09:32] LABS: Anion Gap 6.6 mEq/L (5-15); Blood Urea Nitrogen 17 mg/dl (9-20); Carbon Dioxide 30 mmol/L (22.0-30.0); Creatinine Clearance Estimated 85 mL/min (50-200); Estimated Glomerular Filt Rate 74 ml/min (>60); GFR (African American) 90 ML/MIN (>60); Glucose 154 mg/dl (74-100)
[2024-01-18] MEDS: diphenhydrAMINE 50MG/ML VIAL 50 MG IV (10:59)
[2024-01-18] MEDS: NITROGLYCERIN 800MCG/8ML SYR (CATH LAB) 800 MCG IA (11:00)
[2024-01-18] MEDS: LIDOCAINE 1% 10ML MDV 20 ML IJ (11:00)
[2024-01-18] MEDS: VERAPAMIL 2.5MG/ML 2ML VIAL 2.5 MG IV (11:00)
[2024-01-18] MEDS: 0.9 % SODIUM CHLORIDE 500 ML 25 ML IV (11:01)
[2024-01-18] MEDS: MIDAZOLAM HCL 1MG/1ML 5ML VIAL 1 MG IV (11:01)
[2024-01-18] MEDS: HEPARIN 1,000 UNITS/500ML NS (CATH LAB) 3000 UNIT IV (11:01)
[2024-01-18] MEDS: HEPARIN 1,000 UNITS/ML 10ML VIAL (CATH LAB) 10000 UNIT IV (11:01)
[2024-01-18] MEDS: FENTANYL 100MCG/2ML VIAL 50 MCG IV (11:02)
[2024-01-18] MEDS: IOPAMIDOL-370 (76%);100ML BOTTLE 170 ML IV (13:17)
[2024-01-18 13:20] LABS: CATHL Activated Clotting Time 381 SEC (74-125)
[2024-01-18] MEDS: ACETAMINOPHEN 325MG TAB 650 MG PO (14:59)
== END 2024-01-18 15:37 | disposition home or self-care (01) ==
PROVIDERS: PCP Internal Medicine Adolescent Medicine; Visit Provider Internal Medicine
DX: I25.118 Atherosclerotic heart disease of native coronary artery with other forms of angina pectoris (principal); Z95.1 Presence of aortocoronary bypass graft; Z79.899 Other long term (current) drug therapy; I10 Essential (primary) hypertension; E11.9 Type 2 diabetes mellitus without complications; E78.5 Hyperlipidemia, unspecified; N52.2 Drug-induced erectile dysfunction
CPT/HCPCS: 80048; 85025; 85347; 92928; 93459; 93571; 93572; 99152; 99153; C1725; C1769; C1876; C9600; J1644; Q9967

== ENCOUNTER 2024-01-19 14:52 | Outpatient (CLI) | payer MEDICARE, SELFPAY ==
[2024-01-19 15:07] LABS: Basophils # 0.1 K/mm3 (0-0.2); Basophils % 0.8 % (0.1-2.0); Eosinophils # 0.2 K/mm3 (0.0-0.4); Eosinophils % 2.7 % (0.1-12.0); Hematocrit 49.8 % (42.0-52.0); Hemoglobin 16.3 g/dL (14.1-18.0); Lymphocytes # 1.8 K/mm3 (0.7-4.5); Lymphocytes % 24.4 % (10-50); Mean Corpuscular HGB Conc 32.7 g/dL (31.8-35.4); Mean Corpuscular Hemoglobin 32.2 pg (27.0-31.2); Mean Corpuscular Volume 98.5 fl (80-94); Mean Platelet Volume 8.3 fl (7.4-10.4); Monocytes # 0.5 K/mm3 (0.1-1.0); Monocytes % 6.1 % (1.7-9.3); Neutrophils # 4.9 K/mm3 (1.8-7.8); Platelet Count 183 K/mm3 (142-424); Red Blood Count 5.06 M/mm3 (4.60-6.20); Red Cell Distribution Width 13.3 % (11.5-17.5); White Blood Count 7.4 K/mm3 (4.8-10.8)
[2024-01-19 17:38] LABS: Anion Gap 7.4 mEq/L (5-15); Blood Urea Nitrogen 18 mg/dl (9-20); Calcium 9.3 mg/dl (8.4-10.2); Carbon Dioxide 30 mmol/L (22.0-30.0); Chloride 107 mmol/L (98-107); Estimated Glomerular Filt Rate 84 ml/min (>60); GFR (African American) 101 ML/MIN (>60); Glucose 148 mg/dl (74-100); Potassium 4.4 mmoL/L (3.5-5.1); Sodium 140 mmol/L (136-145)
== END 2024-01-19 23:59 ==
PROVIDERS: PCP Internal Medicine Adolescent Medicine; Visit Provider Internal Medicine
DX: I25.10 Atherosclerotic heart disease of native coronary artery without angina pectoris (principal)
CPT/HCPCS: 36415; 80048; 85025

== ENCOUNTER 2024-02-12 10:43 | Outpatient (CLI) | payer MEDICARE, SELFPAY ==
--- NOTE | 2024-02-12 10:48 | XR_ITS ---
FINAL REPORT CLINICAL HISTORY: LT SIDED CHEST WALL PAIN FINDINGS: PA and lateral views of the chest are obtained. There is no prior exam for comparison. The cardiac and mediastinal silhouettes are within normal limits. The lungs are clear. There is no pleural effusion, pneumothorax, or acute osseous abnormality. IMPRESSION: No radiographic evidence of acute cardiac or pulmonary disease. Reviewed, Interpreted and Dictated by Veronique Cr MD Transcribed by Leatha Smart Authenticated and [facility]
--- NOTE | 2024-02-12 10:48 | XR_ITS ---
FINAL REPORT CLINICAL HISTORY: LT SIDED CHEST WALL PAIN FINDINGS: LEFT RIBS 4 views of the left ribs were obtained. There is no acute displaced rib fracture or acute rib abnormality. There is no pneumothorax. IMPRESSION: No acute displaced rib fracture. Reviewed, Interpreted and Dictated by Veronique Cr MD Transcribed by Leatha Samrt Authenticated and [facility]
== END 2024-02-12 23:59 ==
PROVIDERS: PCP Internal Medicine Adolescent Medicine; Visit Provider Internal Medicine Adolescent Medicine
DX: R07.89 Other chest pain (principal)
CPT/HCPCS: 71046; 71100

== ENCOUNTER 2024-03-22 09:57 | Outpatient (CLI) | payer MEDICARE, SELFPAY | END 2024-03-22 23:59 | disposition home or self-care (01) | LOC: LAB 09:57 | PROVIDERS: PCP Internal Medicine Adolescent Medicine; Visit Provider Physician Assistant | DX: I25.10 Atherosclerotic heart disease of native coronary artery without angina pectoris (principal) ==

== ENCOUNTER 2024-03-23 08:37 | Outpatient (CLI) | payer MEDICARE, SELFPAY ==
[2024-03-23 12:12] LABS: Alanine Aminotransferase 33 U/L (12-78); Aspartate Amino Transferase 43 U/L (17-59); Bilirubin,Unconjugated 0.9 mg/dL (0.0-1.1)
[2024-03-23 12:13] LABS: Albumin Level 4.1 g/dl (3.5-5.0); Alkaline Phosphatase 53 U/L (38-126); Bilirubin,Direct 0.3 mg/dl (0.0-0.4); Bilirubin,Indirect 0.9 mg/dL (0.0-0.9); Bilirubin,Total 1.2 mg/dl (0.2-1.3); Chol/HDL Ratio 2.6 (1-3.5); Cholesterol 158 mg/dl (140-200); HDL Cholesterol 60 mg/dl (40-60); Total Protein,Serum 6.8 g/dl (6.3-8.2); Triglycerides 80 mg/dl (30-150); VLDL Cholesterol 16 mg/dL (0-40)
== END 2024-03-23 23:59 | disposition home or self-care (01) ==
LOC: LAB 08:39
PROVIDERS: Physician Assistant; PCP Internal Medicine Adolescent Medicine; Visit Provider Internal Medicine
DX: N52.2 Drug-induced erectile dysfunction (principal); Z95.5 Presence of coronary angioplasty implant and graft; Z95.1 Presence of aortocoronary bypass graft; E78.2 Mixed hyperlipidemia; I10 Essential (primary) hypertension; E11.9 Type 2 diabetes mellitus without complications; E78.5 Hyperlipidemia, unspecified; I20.89 Other forms of angina pectoris
CPT/HCPCS: 36415; 80061; 80076

== ENCOUNTER 2024-04-12 08:21 | Emergency (ER) | payer MEDICARE, SELFPAY ==
[2024-04-12 08:55] VITALS: PULSE 95; RESP 20; TEMP 36.9; O2SAT 98; BMI 24.7
[2024-04-12 09:34] LABS: UTC Strep Screen (Rapid) Positive (Negative)
--- NOTE | 2024-04-12 09:34 | EXP.UTC ---
Discharge Plan Disposition Patient Disposition: Home, Self-Care Condition: Good Prescriptions Prescriptions: New amoxicillin 500 mg capsule 500 mg PO BID 10 Days Qty: 20 0RF benzonatate 100 mg capsule 100 mg PO TID PRN (Reason: cough) Qty: 30 0RF ondansetron 4 mg tablet,disintegrating 4 mg PO Q8H PRN (Reason: nausea and vomiting) Qty: 10 0RF No Action acetaminophen [Tylenol] 325 mg tablet 325 mg PO BID PRN (Reason: pain) cholecalciferol (vitamin D3) 25 mcg (1,000 unit) capsule 25 mcg PO DAILY semaglutide 0.25 mg or 0.5 mg(2 mg/1.5 mL) pen injector 1 mg SQ WEEKLY tamsulosin 0.4 mg capsule PO Patient Comments: TAKE 1 CAPSULE BY MOUTH ONCE DAILY ezetimibe [Zetia] 10 mg tablet 10 mg PO DAILY Qty: 30 5RF aspirin 81 mg tablet,delayed release (DR/EC) 81 mg PO DAILY Qty: 100 3RF metoprolol tartrate 25 mg tablet 12.5 mg PO BID Qty: 120 3RF nitroglycerin 0.4 mg tablet, sublingual 0.4 mg SUBLINGUAL Q5-15M PRN (Reason: chest pain) Qty: 25 0RF Rx Instructions: do not exceed 3 doses per episode ranolazine 500 mg tablet extended release 12 hr 500 mg PO BID Qty: 60 5RF amlodipine [Norvasc] 5 mg tablet 5 mg PO DAILY Qty: 30 5RF isosorbide mononitrate 30 mg tablet extended release 24 hr 30 mg PO DAILY Qty: 30 2RF Xiidra 5 % dropperette 1 drp Eye-Both BID clopidogrel 75 mg tablet 75 mg PO DAILY Qty: 90 3RF evolocumab 140 mg/mL pen injector 140 mg SQ Q2W 90 Days Qty: 7 6RF famotidine 20 mg tablet 20 mg PO BID Qty: 180 3RF tadalafil [Cialis] 5 mg tablet 5 mg PO DAILY Qty: 30 3RF meclizine 25 MG tablet 25 mg PO TIDP PRN (Reason: Dizziness) Qty: 45 0RF Rx Instructions: Dizziness or vertigo Referrals Follow up/Referrals: Gildardo Grajeda MD [Primary Care Provider] - See instructions Activity Restrictions/Add. Instructions Additional Instructions/Restrictions: *Monitor Temp, Over the counter Motrin or Tylenol as directed/as needed Tylenol every 4 hours and Motrin every 6 hours (as long as your family doctor has told you that you can take it) for fever or pain. and straight to ER if unable to lower temp less than 101.0 after medication given *Warm salt water gargles may help to soothe the throat *Throat Lozenges? *Warm fluids like tea with honey may help to soothe the throat? *Sleep elevated *Humidifier/Vaporizer *If you did not take Penicillin shot or was unable to, start taking antibiotic immediately and make sure that you take it for the FULL length of time although you should start to feel better in 24-48 hours *change toothbrush and toothpaste 24-48 hours after starting to take antibiotics so you do not reinfect yourself Monitor Temp. Tylenol and/or Ibuprofen as needed. ER if fever is no less than 101 despite alternating Tylenol and Ibuprofen * Encourage fluids, water, Gatorade, powerade, pedialyte if infant/toddler/or child *Cold fluids, popsicles and ice cream may feel good on his throat Follow up IMMEDIATELY for new or worsening symptoms or no Noticeable improvement over the next 48-72 hours. 911 for difficulty breathing or swallowing Clinical Impressions Clinical Impression: Strep throat Instructions Patient Instructions: Strep Throat, DI for Strep Throat, Amoxicillin Discharge ED Provider: Valarie Niño [facility] [place] General Stated complaint: sore throat, body aches and stomach ache Mode of Arrival: Ambulatory Source of Information: Patient Limitations: No Limitations Time Seen by Provider: 04/12/24 09:44 Description of Symptoms (Recalled from Triage Doc. by RN): PATIENT C/O HEADACHE, SORE THROAT, NAUSEA AND BODY ACHES THAT STARTED THIS MORNING. PATIENT REPORTS A POSITIVE COVID TEST ON MONDAY HEENT Symptoms (Recalled from RN notes): Yes Resp Symptoms (Recalled from RN notes): No Skin Symptoms (Recalled from RN notes): No MS Symptoms (Recalled from RN notes): No Functional Status (Recalled from RN notes): WNL History of Present Illness Provider Complaint: Patient states that he tested positive on Leoncio for COVID and his throat has continued to get worse and he has been having some nausea not sure if it is from the COVID or if she has something else Related Data Home Medications Medication Instructions Recorded Confirmed acetaminophen 325 mg tablet 325 mg PO BID PRN pain 06/09/20 03/26/24 (Tylenol) cholecalciferol (vitamin D3) 25 25 mcg PO DAILY 05/17/23 03/26/24 mcg (1,000 unit) capsule lifitegrast 5 % eye drops in a 1 drp Eye-Both BID 12/01/23 03/26/24 dropperette (Xiidra) semaglutide 0.25 mg or 0.5 mg (2 1 mg SQ WEEKLY 01/15/24 03/26/24 mg/1.5 mL) subcutaneous pen injector tamsulosin 0.4 mg capsule mg PO 01/25/24 03/26/24 Previous Rx's Medication Instructions Recorded meclizine 25 mg tablet 25 mg PO TIDP PRN Dizziness #45 05/30/21 tabs clopidogrel 75 mg tablet 75 mg PO DAILY #90 tabs 10/31/23 evolocumab 140 mg/mL subcutaneous 140 mg SQ Q2W Cholesterol 90 days 12/01/23 pen injector #7 mL famotidine 20 mg tablet 20 mg PO BID STOMACH #180 tabs 12/01/23 tadalafil 5 mg tablet (Cialis) 5 mg PO DAILY #30 tabs 12/01/23 aspirin 81 mg tablet,delayed 81 mg PO DAILY HEART HEALTH #100 01/25/24 release tabs ezetimibe 10 mg tablet (Zetia) 10 mg PO DAILY #30 tabs 01/25/24 metoprolol tartrate 25 mg tablet 12.5 mg (1/2 x 25 mg) PO BID Heart 01/25/24 disease #120 tabs nitroglycerin 0.4 mg sublingual 0.4 mg sublingual Q5-15M PRN chest 01/25/24 tablet pain #25 tabs amlodipine 5 mg tablet (Norvasc) 5 mg PO DAILY #30 tabs 03/26/24 isosorbide mononitrate 30 mg 30 mg PO DAILY #30 tabs 03/26/24 tablet,extended release 24 hr ranolazine 500 mg tablet,extended 500 mg PO BID #60 tabs 03/26/24 release,12 hr amoxicillin 500 mg capsule 500 mg PO BID 10 days #20 caps 04/12/24 benzonatate 100 mg capsule 100 mg PO TID PRN cough #30 caps 04/12/24 ondansetron 4 mg disintegrating 4 mg PO Q8H PRN nausea and 04/12/24 tablet vomiting #10 tabs Allergies Allergy/AdvReac Type Severity Reaction Status Date / Time lisinopril Allergy Severe cough Verified 03/26/24 11:10 adhesive tape [ADHESIVE TAPE] Allergy Unknown Unknown Verified 03/26/24 11:10 allergy reaction metformin [METFORMIN] Allergy Unknown Unknown Verified 03/26/24 11:10 allergy reaction rosuvastatin [From Crestor] AdvReac Severe Unknown Verified 03/26/24 11:10 allergy reaction atorvastatin AdvReac Intermediate Unknown Verified 03/26/24 11:10 allergy reaction Worker's Comp Is this a Worker's Comp case?: No [facility] Disclaimer: The information contained in this section may have been updated after the patient was seen, as this information can be updated by other users. Medical History Drug-induced erectile dysfunction Nausea Gallbladder sludge Dyspnea Statin intolerance Atypical angina HLD (hyperlipidemia) Diabetes mellitus HTN (hypertension) Abnormal EKG Abnormal cardiovascular stress test Surgical History H/O nasal septoplasty Hx of tonsillectomy Social History Smoking Status: Never smoker second hand exposure: No alcohol intake: never substance use type: denies use current occupational status: other Travel in the last 8 weeks: None household members: spouse housing: house current occupation: self-employeed current occupational exposures/hazards: No caffeine: Yes ROS Obtained: Yes All systems reviewed & no additional complaints except as documented and Yes Systems reviewed as appropriate & no additional complaints except as documented Constitutional Constitutional: Reports system reviewed and no additional complaints, except as documented and Reports as per HPI Eyes Eyes: Reports system reviewed and no additional complaints, except as documented and Reports as per HPI ENT Ears, Nose, Mouth, and Throat: Reports system reviewed and no additional complaints, except as documented, Reports as per HPI, Reports nasal congestion and Reports sore throat Cardiovascular Cardiovascular: Reports system reviewed and no additional complaints, except as documented and Reports as per HPI Respiratory Respiratory: Reports system reviewed and no additional complaints, except as documented, Reports as per HPI and Reports cough Gastrointestinal Gastrointestingal: Reports system reviewed and no additional complaints, except as documented, as per HPI and nausea Genitourinary Male Genitourinary: Reports system reviewed and no additional complaints, except as documented and Reports as per HPI Physical Exam General General appearance: alert and in no apparent distress ENT ENT exam: Present mucous membranes moist Expanded ENT Exam Nose exam: Absent sinus tenderness Throat exam: Present other (Pharyngeal erythema noted) Respiratory Respiratory exam: Present normal lung sounds bilaterally; Absent respiratory distress or wheezes Cardiovascular Cardiovascular exam: Present regular rate, normal rhythm and normal heart sounds Abdominal Exam Abdominal exam: Present soft and normal bowel sounds; Absent distention or tenderness Neurological Exam Neurological exam: Present alert, oriented X3 and normal gait Medical Decision Making Eugenio Inquiry Pt receiving controlled substance: No Eugenio was queried for this patient: No Vital Signs: 04/12/24 08:55 Temperature 98.5 F Temperature Source Oral Pulse Rate [Right] 95 H Respiratory Rate 20 02 Sat by Pulse Oximetry 98 Oxygen Delivery Method Room Air Lab Data Lab results reviewed: Yes I reviewed the patient's lab results.
[2024-04-12 09:43] VITALS: BP 0/0; PULSE 95; RESP 20; TEMP 36.9; O2SAT 98
== END 2024-04-12 09:47 | disposition home or self-care (01) ==
PROVIDERS: Emergency Provider Nurse Practitioner; PCP Internal Medicine Adolescent Medicine
DX: J02.0 Streptococcal pharyngitis (principal); R51.9 Headache, unspecified; R11.0 Nausea
CPT/HCPCS: 87880; 99212; 99214; G0463

== ENCOUNTER 2024-05-03 06:33 | Outpatient (CLI) | payer MEDICARE, SELFPAY ==
--- NOTE | 2024-05-03 06:36 | CT_ITS ---
FINAL REPORT TECHNIQUE: Axial CT images were performed from the lung apices through the upper abdomen. Coronal reformats were submitted. This study was performed with techniques to keep radiation doses as low as reasonably achievable (ALARA). Individualized dose reduction techniques using automated exposure control or adjustment of mA and/or kV according to the patient's size were employed. CLINICAL HISTORY: LEFT SIDED CHEST WALL PAIN RADIATING UP TO SHOULDER COMPARISON: 12/26/2022 and 12/30/2020 FINDINGS: There is no axillary adenopathy. There is no hilar or mediastinal mass or adenopathy. Patient is status post median sternotomy. There is mild right gynecomastia. Heart size is normal. There is no pericardial or pleural effusion. Limited images of the upper abdomen reveal multiple less than 3 mm nonobstructing renal stones. There is a 5.2 cm posterior left renal mass consistent with a simple cyst as seen on 12/30/2020. No suspicious infiltrate or nodule is identified on lung window images. IMPRESSION: No chest wall abnormality identified. Nonobstructing renal stones. Reviewed, Interpreted and Dictated by Raúl Garcia III, MD Transcribed by Lore Davies Authenticated and [facility]
== END 2024-05-03 23:59 | disposition home or self-care (01) ==
LOC: RAD 06:33
PROVIDERS: PCP Internal Medicine Adolescent Medicine; Visit Provider Internal Medicine Adolescent Medicine
DX: R07.89 Other chest pain (principal)
CPT/HCPCS: 71250

== ENCOUNTER 2024-06-07 09:18 | Outpatient (CLI) | payer MEDICARE, SELFPAY ==
--- NOTE | 2024-06-07 09:19 | FL_ITS ---
FINAL REPORT CLINICAL HISTORY: .L sided chest pain-stents in dec. reflux-on pepcid 2x daily nauseated thickness in throat DAP 541.64 fluoro 38.75 FINDINGS: ESOPHAGRAM HISTORY: Abdominal pain, nausea. PROCEDURE: The patient ingested barium. Effervescent crystals were also administered. Spot and overhead films were obtained. FINDINGS: There is no hiatal hernia. There is a traction diverticulum of the mid esophagus. There is gastroesophageal reflux to the level of the mid esophagus. Peristalsis is normal. IMPRESSION: 1. Traction diverticulum of the mid esophagus. 2. Gastroesophageal reflux to the level of the mid esophagus. Fluoroscopy time: 39 seconds Fluoro dose: 541.64 DAP in [employer] reviewed , interpreted and dictated by Dr. Veronique Cr. Transcribed by Bijan Sandhu PA-C. Reviewed, Interpreted and Dictated by Veronique Cr MD Transcribed by ROBERTA Miles Authenticated and [facility]
== END 2024-06-07 23:59 | disposition home or self-care (01) ==
LOC: RAD 09:19
PROVIDERS: PCP Physician Assistant; Visit Provider Physician Assistant
DX: K21.9 Gastro-esophageal reflux disease without esophagitis (principal); I20.9 Angina pectoris, unspecified
CPT/HCPCS: 74220

== ENCOUNTER 2024-06-13 06:50 | Outpatient (CLI) | payer MEDICARE, SELFPAY ==
--- NOTE | 2024-06-13 06:53 | NM_ITS ---
APPROVED REPORT Exam: Nuclear Stress Test Indication: chest pain..fatigue Patient Location: Outpatient Stress Tech: Marie SAENZ Tech:Jesika Mercer MAAMEBrendon RT(R)(N) Ht: 6 ft 1 in Wt: 182 lbs HR: 69 bpm BP: 131/85 mmHg BSA: 2.07 m2 TID: 0.73 BMI: 24.0 History: chest pain..fatigue Procedure: Patient exercised on Hari protocol 9:46 minutes and sec, resting heart rate 69 bpm, resting blood pressure 131/85 mmHg, with exercise maximum heart rate achived was 135 bpm which is 89 % of the maximum predicted heart rate and blood pressure was 172/88 mmHg. Test was stopped due to fatigue. Patient denied any complaint of chest pain. Patient has exercise capacity, achieved 10.1 METs of workload on treadmill, the blood pressure response to exercise was . Cardiac Stress and Resting SPECT Images: Cardiac Stress and Resting SPECT images were obtained using technetium 99m Myoview 32.0 mCi stress and 10.74 mCi at rest. Resting and stress imaging in supine and prone positions demonstrate no evidence of fixed or reversible perfusion defects. Gated imaging demonstrates low-normal global LV systolic function. LVEF is calculated at 53%. Conclusion: No evidence of fixed or reversible perfusion defects. Gated imaging demonstrates low-normal global LV systolic function. LVEF is calculated at 53%. Electronically signed by : Shruthi Toure MD 06/13/2024 12:08:36
--- NOTE | 2024-06-13 09:39 | CA_ITS ---
APPROVED REPORT Exam: Exercise Treadmill Technologist: Marie Johnson, Ht: 6 ft 1 in Wt: 185 lbs BSA: 2.08 m2 HR: 55 bpm BP: 149/86 mmHg Rhythm: NSR Medical History Medications: Aspirin,,,,, Zetia,,,,, Metoprolol Tartrate,,,,, Tylenol,,,,, TAMSALOSIN,,,,, Norvasc,,,,, CloPIdogrel,,,,, Famotidine,,,,, BenzONATATE,,,,, Evolocumab,,,,, Ranolazine ER,,,,, NitrogGLYCERIN,,,,, Stress Test Details Test: Manual Treadmill HR Resting HR: 69 bpm Max Heart Rate (APMHR): 151 bpm Max HR Achieved: 135 bpm Target HR (85% APMHR): 128 bpm % of APMHR: 89 Recovery HR: 82 bpm HR response to stress: Normal HR response to stress BP Resting BP: 131.0/85.0 mmHg Max BP: 172.0/88.0 mmHg Recovery BP: 138.0/90.0 mmHg BP response to stress: Normal blood pressure response to stress. ECG Resting ECG: Sinus robin, NS T wave abns. Stress EC.[address] depression Arrhythmia: PACs, PVCs Clinical Exercise duration: 09:46 min Highest Stage Achieved: IV Exercise capacity: 10.1 METs Overall Exercise Capacity for Age: Average Stress ECG Conclusion Exercised 9:46 on Hari Protocol. Max HR: 135 % of PM: 89% Max BP: 172/88 METs: 10.1 Test stopped due to: SOA, fatigue Symptoms: No CP. Arrhythmias/Ectopy: PACs, PVCs ST-T Changes: 0.[address] depression Conclusion: Average exercise capacity. No significant ECG changes suggestive of ischemia at peak stress. Myoview images reported separately. Test Summary REST . . . . . . . Sitting REST . . . . . . . Standing REST 04:28 0.0 0.0 69 . 131/ 85 . . Stage 1 01:00 10.0 1.7 80 . . . . Stage 1 02:00 10.0 1.7 88 . . . . Stage 1 03:00 10.0 1.7 89 . 152/ 90 . . Stage 2 01:00 12.0 2.5 99 . . . . Stage 2 02:00 12.0 2.5 100 . . . . Stage 2 03:00 12.0 2.5 103 . 160/ 84 . . Stage 3 01:00 14.0 3.4 113 . . . . Stage 3 02:00 14.0 3.4 116 . . . . Stage 3 03:00 14.0 3.4 124 . . . . Stage 4 . . . . . . . Protocol changed to Manual Treadmill Stage 4 00:46 16.0 3.7 135 . . . Stop exercise at 09:46 RECOVERY 01:00 0.0 0.0 102 . . . . RECOVERY 02:00 0.0 0.0 88 . . . . RECOVERY 03:00 0.0 0.0 78 . 172/ 88 . . RECOVERY 04:00 0.0 0.0 81 . 150/ 83 . . RECOVERY 05:00 0.0 0.0 82 . 138/ 90 . . RECOVERY 05:19 0.0 0.0 83 . 138/ 90 . . Electronically signed by : Shruthi Toure MD 06/13/2024 12:05:33
== END 2024-06-13 23:59 | disposition home or self-care (01) ==
LOC: RAD 06:51
PROVIDERS: PCP Internal Medicine Adolescent Medicine; Visit Provider Physician Assistant
DX: I25.119 Atherosclerotic heart disease of native coronary artery with unspecified angina pectoris (principal); I11.9 Hypertensive heart disease without heart failure; Z95.5 Presence of coronary angioplasty implant and graft; Z95.1 Presence of aortocoronary bypass graft
CPT/HCPCS: 78452; 93017; 93018; A9502

== ENCOUNTER 2024-06-21 11:00 | Outpatient (RCR) | payer MEDICARE, SELFPAY ==
--- NOTE | 2024-06-10 11:46 | HMH.PTOPEV ---
PT Outpatient Evaluation Rehab PT Outpatient Evaluation Start: 06/10/24 11:17 Freq: Status: Active Protocol: Document 06/10/24 11:17 REVA (Rec: 06/10/24 11:46 REVA [id number]) E-signed By Aiden Espinoza, PT Outpatient Therapy Subjective History Subjective History Pt reports h/o chronic left sided neck pain following chiropractor treatment ~4 months ago. Pt reports 'after being manipulated it pops now and it's quite sore.' Pt reports [place]. painful w/ combination of cervical flexion and lateral side- bending to the left. 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 Chief Complaint Pain,Stiff,Clicks Symptom Type Ache,Sharp,Dull Symptoms Relieved By Rest/Positioning,Prescription Meds Symptoms Aggravated By Physical Activity,Twisting Prior Functional Limitations Housework,Desk Work/Reading, Driving Current Functional Limitations Housework,Desk Work/Reading, Driving Symptom Description Constant but Variable Level of pain today (0-10) 1 Pain scale - at its best (0-10) 1 Pain scale - at its worst (0-10) 2 Cervical Eval Palpation Cervical Muscles L Cervical Paraspinal,L Suboccipital,L CT Junction,L Upper Trapezius Cervical/Thoracic Palpation Findings Tenderness,Trigger Point Posture Head/C-Spine Posture Sitting Position Flexed Head/C-Spine Posture Standing Position Flexed Flexibility Deficits Upper Trapezius Muscle Length (R) Mild Tightness,(L) Moderate Tightness Scalene Group Muscle Length (L) Moderate Tightness Passive Joint Mobility Cervical PIVM Inc: R C4/5 L C4/5 R C5/6 L C5/6 R C6/7 L C6/7 R C7/T1 L C7/T1 WNL: R OA L OA R AA L AA R C2/3 L C2/3 R C3/4 L C3/4 AROM Cervical Spine Extension Active Range of 0-40 Motion (degrees) Cervical Spine Flexion Active Range of 0-70 Motion (degrees) Cervical Spine Right Lateral Flexion 0-40 Active Range of Motion (degrees) Cervical Spine Left Lateral Flexion 0-30 Active Range of Motion (degrees) Cervical Spine Right Rotation Active 0-60 Range of Motion (degrees) Cervical Spine Left Rotation Active 0-40 Range of Motion (degrees) MMT Left Deltoid (C5) 4- Good- Biceps Brachii Strength Grade 5 Normal Wrist Extension Strength Grade 5 Normal Triceps Brachii Strength Grade 5 Normal Wrist Flexion Strength Grade 5 Normal Extensor Pollicis Longus Strength Grade 5 Normal Finger Abduction Strength Grade 5 Normal Special Test C-Spine Foraminal Compression (Spurling) Negative Left Test Neck Disability Index Neck Disability Index Section 1: Pain Intensity The pain is moderate at the moment Section 2: Personal Care (washing, I can look after myself dressing, etc.) normally without causing extra pain Section 3: Lifting I can lift heavy weights without extra pain Section 4: Reading I can read as much as I want to with slight pain in my neck Section 5: Headaches I have no headaches at all Section 6: Concentration I can concentrate fully when I want to with no difficulty Section 7: Work I can only do my usual work, but no more Section 8: Driving I can drive my car without any neck pain Section 9: Sleeping My sleep is slightly disturbed (less than 1 hr sleepless) Section 10: Recreation I am able to engage in all my recreation activities with some pain in NDI Score 6 Outpatient Therapy Assessment Impairments Problems/Impairmments Palpation Tenderness,Impaired Range of Motion,Impaired Strength,Impaired Driving, Impaired Household Care, Impaired Desk/Computer Activities,Subjective C/O Pain ,Impaired Self Care/Self Management Prognosis Rehab Potential Good Clinical Impression Consistent with Diagnosis Yes Short Term Goals Number of Weeks 4 Decreased Palpation Tenderness Yes: 1-2/4 cervical mm Increase Range of Motion Yes: 50-75% WFL of CROM Increase Strength Yes: 4/5 LUE Increase Ability to Drive/Ride in Car Yes: 30MIN Improve Tolerance to Desk/Computer Yes: 30MIN Activities Decrease Subjective C/O Pain Yes: 2/10 W/ABOVE ACTIVITIES Patient to be Ind w/ HEP Yes [facility] Goals Number of Weeks 6-8 Decreased Palpation Tenderness Yes: 0-1/4 CERVICAL MM Increase Range of Motion Yes: WFL CROM Increase Strength Yes: 4+-5/5 LUE Increase Ability to Drive/Ride in Car Yes: 60MIN Restore Ability to Lift Objects to Yes: 10# LUE Shoulder Level Improve Tolerance to Desk/Computer Yes: 60MIN Activities Decrease Subjective C/O Pain Yes: 0-2/10 W/ABOVE ACTIVITIES Patient to be Ind w/ Advanced HEP Yes Outpatient Therapy Plan of Care Treatment Plan May Include Therapeutic Exercise Including Home Yes Exercise Program Manual Therapy Techniques Yes Neuromuscular Re-education Yes Therapeutic Activities to Return to Yes Previous Functional/Work Level ADL/Self Care Education Yes Mechanical Traction Yes Dry Needling Yes Thermal Modalities Yes Electrical Stimulation Yes Ultrasound/Phonophoresis Yes Eval/Re-Eval Yes Frequency Times per week 2-3 Duration Number of Weeks 6-8 Addendums This patient is a candidate for social No or vocational rehab? Patient/Guardian verbally acknowledges Yes understanding of treatment program and consents to further treatment? Patient/Guardian verbally acknowledges Yes understanding of diagnosis, prognosis and goals for treatment? Eval Complexity PT Charges 26164 - Moderate Complexity Shoulder/Elbow Eval Shoulder Objective Measurements Elbow Objective Measurements PHYSICIAN CERTIFICATION: I certify the specified therapy services for Mariano Sellers are required, authorized, and reviewed every 30 days.
== END 2024-06-21 11:05 | disposition home or self-care (01) ==
LOC: PT 11:00
PROVIDERS: Visit Provider Internal Medicine Adolescent Medicine
DX: M54.2 Cervicalgia (principal)
CPT/HCPCS: 20560; 97010; 97012; 97014; 97035; 97110; 97140; 97163; G0283

== ENCOUNTER 2024-11-12 10:13 | Outpatient (CLI) | payer MEDICARE, SELFPAY | END 2024-11-12 23:59 | disposition home or self-care (01) | LOC: LAB.DROPOF 11-14 10:38 | PROVIDERS: PCP Student in an Organized Health Care Education/Training Program; Visit Provider Student in an Organized Health Care Education/Training Program | DX: J02.9 Acute pharyngitis, unspecified (principal) | CPT/HCPCS: 87070 ==